=== PATIENT | female | born 1960 | race Caucasian/White ===

== ENCOUNTER → 2021-07-23 01:49 | Outpatient (CLI) | payer OTHER, SELFPAY ==
[2021-07-23 17:56] LABS: SARS-CoV-2 RNA PCR Negative
== END ==
PROVIDERS: PCP Physician Assistant; Visit Provider Internal Medicine
DX: B34.9 Viral infection, unspecified (principal); Z20.822 Contact with and (suspected) exposure to COVID-19
CPT/HCPCS: C9803; U0003; U0005

== ENCOUNTER 2022-04-25 10:04 | Emergency (ER) | payer OTHER, SELFPAY ==
--- NOTE | ~2022-04-25 | XR_ITS ---
EXAMINATION: XR humerus LT DATE: 04/25/2022 10:37 INDICATION: Left upper arm injury and pain. TECHNIQUE: 2 views of left humerus were obtained. COMPARISON: None. FINDINGS: There is a comminuted fracture of proximal left humerus. At the surgical neck, the distal f racture fragment demonstrates impaction and 4 mm lateral displacement. There is mild osteoarthritis o f acromioclavicular joint. The glenohumeral joint is normal. IMPRESSION: 1. Comminuted two-part fracture of proximal left humerus. Reviewed, dictated and finalized at location A.
--- NOTE | 2022-04-25 10:17 | ED.UPPEXIN ---
HPI - Extremity Injury (Upper) General Chief Complaint: Extremity Injury, Upper Stated Complaint: Left Arm Pain due to fall Time Seen by Provider: 04/25/22 10:17 Source: patient, family, RN notes reviewed and old records reviewed Mode of arrival: ambulatory Limitations: no limitations History of Present Illness HPI narrative: 61-year-old female presents to [facility] with complaints of injury to her left arm related to a fall which occurred yesterday at around noon as she was outside of [employer] in [place].Patient reports that she was not dizzy prior to fall and did not hit her head in the fall, patient is not on any blood thinners. Patient has abrasion and some minimal discomfort on palpation to elbow olecranon region with full mobility of left elbow, Patient has swelling to left upper humerus with some bruising noted with acute pain. Patient medicated with Ibuprofen at 0915 this morning and has been applying ice to her left upper arm area. MD complaint: injury to: left and arm (humerus) Onset (ago): day(s) (1) Handedness: right Place: outdoors Severity scale (1-10): 10 Exacerbating factors: movement of extremity Treatments prior to arrival: cold therapy and NSAIDS Related Data Allergies Allergy/AdvReac Type Severity Reaction Status Date / Time codeine Allergy Mild Vomiting Verified 04/25/22 10:26 Review of Systems Review of Systems: CONSTITUTIONAL: Denies fever, chills, or sweats. EYES: Denies visual changes, redness, or discharge. ENT: Denies rhinorrhea, congestion, sore throat, or otalgia. CARDIOVASCULAR: Denies chest pain, palpitations, or edema. RESPIRATORY: Denies cough or dyspnea. GASTROINTESTINAL: Denies abdominal pain, nausea, vomiting, or diarrhea. GENITOURINARY: Denies dysuria or hematuria. SKIN: Denies rash or itching. Abrasions to left elbow with minimal discomfort and full ROM MUSCULOSKELETAL: Denies back pain, positive for pain to left upper humerus below left shoulder from fall yesterday, or myalgia. NEUROLOGIC: Denies headache, numbness, or weakness. PSYCHIATRIC:Positive for history of anxiety or depression. All systems reviewed & are unremarkable except as noted in HPI and below PMFSH Past Medical History Medical History Anxiety and depression Hypothyroidism Stroke Surgical History Surgical History History of hysterectomy Hx of cholecystectomy Family History Family History Father Lung cancer Mother Diabetes mellitus Heart disease Sibling AML (acute myeloblastic leukemia) Social History Social History Smoking status: Never smoker Second hand tobacco smoke exposure: No Alcohol intake: current Alcohol use details: One drink a year Substance use: never Living arrangements: with family Gender identity (if verbalized by the patient): Female Comments At time of signature, agree with nursing past medical, surgical, social and family history. There is no relevant family history pertinent to the presenting complaint Exam Narrative: GENERAL: Well-appearing, well-nourished, and in acute distress related to injury of left upper arm HEAD: Normocephalic, atraumatic. EYES: PERRLA and EOMI. ENT: Nares clear, no rhinorrhea or epistaxis. Mucous membranes moist.TM's normal with good light reflex, throat pink with no lesions or swelling NECK: Supple. no lymphadenopathy CHEST: Clear to auscultation. No respiratory distress.SAO2 99% on room air HEART: Regular rate and rhythm. No murmur heard. Normal peripheral pulses. ABDOMEN: Soft, nontender, nondistended, normal active bowel sounds. EXTREMITIES: Normal range of motion. No edema.Exception noted to pain to left humerus related to injury with some bruising to left upper arm with swelling
[2022-04-25 10:23] VITALS: BP 119/71; PULSE 100; RESP 20; TEMP 37.1; O2SAT 99
--- NOTE | 2022-04-25 10:36 | PC.NURSE ---
Pt in xray at this time.
[2022-04-25] MEDS: ACETAMINOPHEN 500 MG TABLET PO ×2 (12:10→12:11)
== END 2022-04-25 12:20 | disposition short-term general hospital (02) ==
PROVIDERS: Emergency Provider Registered Nurse; PCP Physician Assistant
DX: S42.202A Unspecified fracture of upper end of left humerus, initial encounter for closed fracture (principal); W19.XXXA Unspecified fall, initial encounter; E03.9 Hypothyroidism, unspecified; Z86.73 Personal history of transient ischemic attack (TIA), and cerebral infarction without residual deficits; F41.9 Anxiety disorder, unspecified; F32.A Depression, unspecified
CPT/HCPCS: 73060; 99214; A9270; G0463

== ENCOUNTER 2023-07-30 08:39 | Outpatient (CLI) | payer OTHER, SELFPAY ==
--- NOTE | ~2023-07-30 | US_ITS ---
US abdomen limited INDICATION: Right upper quadrant pain. PROCEDURE: Realtime right upper abdominal ultrasound. COMPARISON: No prior studies for comparison. FINDINGS: The pancreas is normal without focal mass or pancreatic ductal dilation. Liver echotexture is increased, consistent with fatty infiltration. There is nodular liver surface, consistent with ci rrhosis. There is normal directional flow in the portal vein. Gallbladder is surgically absent. Common duct and visualized. IMPRESSION: 1: Cirrhosis of the liver. 2: Status post cholecystectomy. Reviewed, dictated and finalized at location L. DING ENERGY CONSULTANT
== END 2023-07-30 08:40 | disposition home or self-care (01) ==
PROVIDERS: PCP Physician Assistant; Visit Provider Nurse Practitioner Family
DX: R79.89 Other specified abnormal findings of blood chemistry (principal); R89.9 Unspecified abnormal finding in specimens from other organs, systems and tissues; R74.8 Abnormal levels of other serum enzymes; K74.69 Other cirrhosis of liver; Z90.49 Acquired absence of other specified parts of digestive tract
CPT/HCPCS: 76705

== ENCOUNTER 2023-08-17 05:41 | Outpatient (CLI) | payer OTHER, SELFPAY ==
[2023-08-13 12:57] VITALS: BMI 29.4
--- NOTE | 2023-08-13 12:57 | PC.NURSE ---
Pre Radiology instructions Report to the outpatient [facility] on date 08/17/23 at time 0730 for procedure Time: 0930. YOU MAY BE MONITORED AT HOSPITAL FOR UP TO 4 HOURS AFTER YOUR PROCEDURE. A visitor will be allowed to accompany the patient into the hospital. You and your visitor will be asked to self-screen and do not enter if you have any COVID symptoms. A mask is OPTIONAL within the hospital. Patients are to have no food or drink 6 hours prior to procedure time Driving will be restricted after the procedure, you must have a person to drive you home. Labs will be drawn in preop area and once reviewed, you will be taken to radiology area for procedure. When the procedure is completed, you will be taken to outpatient where you will be monitored for several hours. You may have one visitor in this area. Other than holding anti-coagulants, patient may take other medication(s) as scheduled. Prior to your appointment date patients are instructed to hold anti-coagulants after discussing with ordering provider to stop. If unable to discontinue anti-coagulants please notify radiologist. ? No aspirin or warfarin (Coumadin) for 7 days prior to the procedure. ? No clopidogrel (Plavix), ticagrelor (Brilinta), prasugrel (Effient) or dabigatran (Pradaxa) for 5 days prior to the procedure. ? No rivaroxaban (Xarelto), apixaban (Eliquis), dipyridamole (Aggrenox or Persantine) or cilostazol (Pletal) for 2 days prior to the procedure. Medications to discontinue per physician: N/A Date to take last dose: N/A Please leave all valuables, including medications, at home the day of procedure. The hospital will not accept responsibility for valuables. Wear comfortable, loose fitting clothing.? Follow any additional instructions given to you from ordering provider. Telephone instructions given to PT - JASMYN GORDON and asked if any additional questions and then verbalized understanding. Patient advised to call scheduling provider office or registration scheduling [phone] if any additional questions.
[2023-08-17] VITALS (13 sets, daily range): BP systolic 98–111; BP diastolic 49–65; PULSE 74–94; RESP 14–17; TEMP 37.1; O2SAT 96–98
--- NOTE | ~2023-08-17 | US_ITS ---
EXAMINATION: US biopsy liver DATE: 08/17/2023 09:59 INDICATION: Primary biliary cirrhosis versus overlapping autoimmune hepatitis. Positive mitochondrial M2 antibody and positive actin antibody TECHNIQUE: The procedure including the risks and benefits was discussed with the patient. Risks discu ssed included bleeding and infection. The patient understood the risks and agreed to proceed. The sk in overlying the left hepatic lobe was prepped and draped in usual sterile fashion. Anesthetic was a dministered with 1% lidocaine subcutaneously. An 18 gauge core biopsy needle was advanced under cont inuous ultrasound observation to the left hepatic lobe for random biopsy. 3 core biopsy specimens we re obtained. The needle was removed and the entry site was cleaned and dressed. Post procedure ultr asound demonstrated no hemorrhage. FINDINGS: Ultrasound images demonstrate biopsy needles advanced into the left hepatic lobe. IMPRESSION: 1. Successful Ultrasound-guided random liver biopsy. Reviewed, dictated and finalized at location A. ER SERVICES REPRESENTATIVE
[2023-08-17 08:17] LABS: Mean Platelet Volume 9.6 fl (7.4-10.4); Platelet Count Result 197 k/mm3 (150-375)
[2023-08-17 08:49] LABS: INR 1.2; Prothrombin Time 15.5 Seconds (11.1-14.7)
--- NOTE | 2023-08-17 10:01 | SUR.PHASEII ---
Pt. presented to Phase 2 Recovery at 0950. Pt. should be NPO for 2 hours following procedure, then 2 hours clear liquids per premises technician on handoff. Pt. can discharge after 4 hours per MD orders.
[2023-08-17] MEDS: oxyCODONE HCL (*CRX) 5 MG TAB IR PO (11:07)
== END 2023-08-17 14:05 | disposition home or self-care (01) ==
PROVIDERS: PCP Physician Assistant; Referring Provider Nurse Practitioner Family; Visit Provider Radiology Diagnostic Radiology
PROC: BF45ZZZ Ultrasonography of Liver (ICD-10-PCS; CPT 47000; principal; 2023-08-17 09:30)
DX: K74.3 Primary biliary cirrhosis (principal); K74.01 Hepatic fibrosis, early fibrosis; R79.89 Other specified abnormal findings of blood chemistry; R89.9 Unspecified abnormal finding in specimens from other organs, systems and tissues
CPT/HCPCS: 36415; 47000; 76942; 85049; 85610; 88307; 88312; 88313; A9270

== ENCOUNTER 2023-08-21 02:48 | Day surgery (SDC) | payer OTHER, SELFPAY ==
[2023-08-05 13:10] VITALS: BMI 29.7
--- NOTE | 2023-08-19 08:58 | SUR.PREOP ---
Patient called regarding upcoming procedure. Reviewed preop instructions, appointment times, and procedure prep.
--- NOTE | 2023-08-20 09:49 | WPDANESEPPF ---
Anes - Initial Pre Proc Eval Procedure: Operation Date: 08/21/23 08:00 Proposed Procedures p Esophagogastroduodenoscopy & Colonoscopy - Bryan Claudio MD Date/Time: 08/20/23 09:49 Surgeon: Bryan Claudio MD Pre Op Diagnosis: Iron Deficiency Anemia,Diarrhea, Patient Data Age: 63 Gender: F Height: 1.6 m Weight: 76 kg Allergies Allergy/AdvReac Type Severity Reaction Status Date / Time codeine Allergy Mild Vomiting Verified 08/21/23 06:51 Home Medications Medication Instructions Recorded Confirmed Type escitalopram oxalate 20 mg tablet See Rx Instructions .Route 05/26/23 08/21/23 Rx .COMPLEX #90 tabs levothyroxine 50 mcg tablet See Rx Instructions .Route 05/26/23 08/21/23 Rx .COMPLEX #90 tabs ursodiol 500 mg tablet 500 mg PO BID 1 month #60 tabs 07/07/23 08/21/23 Rx ferrous sulfate 325 mg (65 mg 325 mg PO BID 1 month #60 tabs 07/22/23 08/21/23 Rx iron) tablet Patient hx anesthesia problems: none Family hx anesthesia problems: none Results Review: All pre-operative results and documents have been reviewed as part of the pre-operative evaluation. [facility] Past Medical History Medical History (Updated 08/21/23 @ 07:23 by Curtis Velazquez DO) Abnormal laboratory test result Anxiety and depression Cirrhosis recent biopsy done for staging. Never had symptoms other than elevated LFTs. suspected to be autoimmune related. Diarrhea Elevated LFTs Hypothyroidism MALICK (iron deficiency anemia) Primary biliary cirrhosis Stroke Surgical History Surgical History History of hysterectomy Hx of cholecystectomy Family History Family History Father Lung cancer Mother Diabetes mellitus Heart disease Sibling AML (acute myeloblastic leukemia) Social History Social History Smoking status: Never smoker Second hand tobacco smoke exposure: No Alcohol intake: never Alcohol use details: One drink a year Substance use: never Substance use type: does not use Lack of Transportation: No Lack of Food: Never True Current Housing: I Have Housing Concerned About Future Housing: No Difficulty Paying Gas/Electric Bills: No Difficulty Paying for Meds: No Currently Unemployed: No Education: High School Diploma/GED Difficulty w/ Childcare or Family Care: No Living arrangements: with family Gender identity (if verbalized by the patient): Female Spiritual care concerns: No Anes - Eval Final PreProcedure Day of Procedure 08/20/23 09:49 Patient weight: overweight Heart: regular rate and rhythm Lungs: clear to auscultation Airway: Mallampati scale class II Neurological: alert and oriented Last oral intake: >/= 8 hours ASA classification: III Emergent: no Anesthetic plan: proceed Anesthesia type and monitoring: general GIVS and standard monitoring Results Review: All pre-operative results and documents have been reviewed as part of the pre-operative evaluation. Informed Consent: The patient's anesthetic plan and its attendant risks and benefits were discussed with the patient/family/POA. Questions were solicited and answers provided to the satisfaction of the patient/family/POA.
[2023-08-21 06:52] VITALS: BP 113/63; PULSE 96; RESP 20; TEMP 36.3; O2SAT 98; BMI 29.0
[2023-08-21] MEDS: LACTATED RINGERS 1,000 ML 150 ML IV CONT (06:56)
--- NOTE | 2023-08-21 07:37 | PM.HPGS ---
History of Present Illness History of Present Illness Consent: Risks, benefits, and alternatives have been discussed and questions answered. Patient agrees to proceed with procedure. Chief complaint: Iron Deficiency Anemia,Diarrhea, Narrative: Julianna Ireland is a 63 year old female with julio and diarrhea, never had scopes, also diagnosed with PBC recently confirmed by liver biopsy- stage 2 fibrosis. Using ursodiol. Review of Systems Constitutional: Constitutional: Denies headache(s) and Denies weakness Eyes: Eyes: Denies blurry vision ENT: Reports Normal hearing present, Denies headache(s) and Denies neck pain Cardiovascular: Cardiovascular: Denies chest pain and Denies dyspnea Respiratory: Respiratory: Denies dyspnea Gastrointestinal: Gastrointestinal: Reports no additional gastrointestinal complaints Genitourinary: Genitourinary: Denies dysuria Musculoskeletal: Musculoskeletal: Denies neck pain Integumentary/Breasts: Skin/Breast: Denies dry skin Neurologic: Reports Normal hearing present, Denies headache(s) and Denies weakness Psychiatric: Psychiatric: Denies anxiety Endocrine: Endocrine: Denies change in body appearance Hematologic/Lymphatic: Hematologic/Lymphatic: Denies easy bleeding Allergic/Immunologic: Allergic/Immunologic: Denies urticaria PMFSH Past Medical History Medical History (Updated 08/21/23 @ 07:23 by Curtis Velazquez DO) Abnormal laboratory test result Anxiety and depression Cirrhosis recent biopsy done for staging. Never had symptoms other than elevated LFTs. suspected to be autoimmune related. Diarrhea Elevated LFTs Hypothyroidism JULIO (iron deficiency anemia) Primary biliary cirrhosis Stroke Surgical History Surgical History History of hysterectomy Hx of cholecystectomy Family History Family History Father Lung cancer Mother Diabetes mellitus Heart disease Sibling AML (acute myeloblastic leukemia) Social History Social History Smoking status: Never smoker Second hand tobacco smoke exposure: No Alcohol intake: never Alcohol use details: One drink a year Substance use: never Substance use type: does not use Lack of Transportation: No Lack of Food: Never True Current Housing: I Have Housing Concerned About Future Housing: No Difficulty Paying Gas/Electric Bills: No Difficulty Paying for Meds: No Currently Unemployed: No Education: High School Diploma/GED Difficulty w/ Childcare or Family Care: No Living arrangements: with family Gender identity (if verbalized by the patient): Female Spiritual care concerns: No Meds Home Medications and Allergies Home Medications Medication Instructions Recorded Confirmed Type escitalopram oxalate 20 mg tablet See Rx Instructions .Route 05/26/23 08/21/23 Rx .COMPLEX #90 tabs levothyroxine 50 mcg tablet See Rx Instructions .Route 05/26/23 08/21/23 Rx .COMPLEX #90 tabs ursodiol 500 mg tablet 500 mg PO BID 1 month #60 tabs 07/07/23 08/21/23 Rx ferrous sulfate 325 mg (65 mg 325 mg PO BID 1 month #60 tabs 07/22/23 08/21/23 Rx iron) tablet Allergies Allergy/AdvReac Type Severity Reaction Status Date / Time codeine Allergy Mild Vomiting Verified 08/21/23 06:51 Vital Signs Vital Signs - 24 hr 08/21/23 06:52 Temperature 97.3 F L Pulse Rate 96 Respiratory Rate 20 Blood Pressure 113/63 Pulse Oximetry 98 Oxygen Delivery Room Air Exam Const: General: comfortable and no acute distress HENMT: Face/Nose/Sinus: Normal nares present Eyes: General: appearance normal, both eyes and all related structures Neck: Neck: no JVD Resp: Auscultation: clear to auscultation bilaterally Cardio: Rate: regular rate Rhythm: regular rhythm GI: Inspection: non-
--- NOTE | 2023-08-21 08:06 | SUR.OPER ---
EGD START 742, END 47 COLONOSCOPY START 075, END 08
[2023-08-21 08:09] VITALS: BP 102/62; PULSE 94; RESP 24; O2SAT 95
[2023-08-21 08:19] VITALS: BP 93/56; PULSE 90; RESP 24; O2SAT 98
[2023-08-21 08:29] VITALS: BP 105/61; PULSE 87; RESP 26; O2SAT 99
== END 2023-08-21 08:39 | disposition home or self-care (01) ==
PROVIDERS: PCP Physician Assistant; Visit Provider Internal Medicine Gastroenterology
PROC: 0DJ08ZZ Inspection of Upper Intestinal Tract, Via Natural or Artificial Opening Endoscopic (ICD-10-PCS; CPT 43235; principal; 2023-08-21 08:00)
DX: D50.9 Iron deficiency anemia, unspecified (principal); D12.2 Benign neoplasm of ascending colon; D12.3 Benign neoplasm of transverse colon; K29.50 Unspecified chronic gastritis without bleeding; K74.3 Primary biliary cirrhosis; E03.9 Hypothyroidism, unspecified; F41.8 Other specified anxiety disorders; Z86.73 Personal history of transient ischemic attack (TIA), and cerebral infarction without residual deficits
CPT/HCPCS: 45385; 45380; 45381; 43239; 74177; 88305; J2704; J7120; Q9967

== ENCOUNTER 2023-08-21 13:15 | Outpatient (CLI) | payer OTHER, SELFPAY ==
--- NOTE | ~2023-08-21 | CT_ITS ---
CT of the Abdomen and Pelvis: Indication: Other specified disease of intestine Technique: 2.5 mm axial scans were obtained through the abdomen and pelvis following intravenous adm inistration of 100 cc of Omnipaque 350. Dose reduction technique was used on this scan by utilizing a utomated exposure control and iterative reconstruction technique. The dose-length product (DLP) was 7 90.44 mGy-cm. Findings: Scans through the lung bases are unremarkable. Probable esophageal varices noted. Probable mildly nodular contour of the liver. The pancreas, gallbladder, left adrenal gland, and kidn eys are within normal limits. There is a 1.3 cm right adrenal gland nodule, indeterminate. Spleen is enlarged. No evidence of aortic aneurysm. No lymphadenopathy. There is a large apple core type mass lesion of the cecum/ascending colon, highly consistent with col onic adenocarcinoma, measuring up to approximately 9.1 x 7.1 x 10.4 cm in extent (axial image 71 for example, coronal image 59 for example). No elenita bowel obstruction evident despite the size of lesion and apparent marked luminal narrowing in the ascending colon. There are multiple mildly prominent ri ght lower quadrant mesenteric lymph nodes present. Images through the pelvis were performed. Urinary bladder unremarkable. No pelvic mass seen. No ascit es. T12 compression fracture present, moderate in severity. Impression: 9.1 x 7.1 x 10.4 cm mass of the ascending colon/cecum, most consistent with colonic adenocarcinoma. D espite apparent marked luminal narrowing of the ascending colon, there is no evidence of elenita upstre am bowel obstruction. 1.3 cm indeterminate right adrenal gland nodule. Given the aforementioned neoplastic findings, follow -up MR should be strongly considered to assess for adenoma, especially if this will affect clinical m anagement/staging. Shotty right lower quadrant lymph nodes are present, nonspecific. Small local sy metastases are no t excluded. Findings compatible with cirrhosis with associated portal hypertension, splenomegaly, and esophageal varices. Benign-appearing T12 compression fracture. Reviewed, dictated and finalized at [facility]. IDE SALES CONSULTANT Impression: 9.1 x 7.1 x 10.4 cm mass of the ascending colon/cecum, most consistent with col onic adenocarcinoma. Despite apparent marked luminal narrowing of the ascending colon, there is no evidence of elenita upstream bowel obstruction. 1.3 cm indeterminate right adrenal gland nodule. Given the aforementioned neopl astic findings, follow-up MR should be strongly considered to assess for adenom a, especially if this will affect clinical management/staging. Shotty right lower quadrant lymph nodes are present, nonspecific. Small local n odal metastases are not excluded. Findings compatible with cirrhosis with associated portal hypertension, splenom egaly, and esophageal varices. Benign-appearing T12 compression fracture.
[2023-08-21 13:44] LABS: Estimated Glomerular Filt Rate > 60
== END 2023-08-21 13:16 | disposition home or self-care (01) ==
LOC: ANHIMG 13:17
PROVIDERS: PCP Physician Assistant; Visit Provider Internal Medicine Gastroenterology
DX: D64.9 Anemia, unspecified (principal); K63.89 Other specified diseases of intestine; E27.8 Other specified disorders of adrenal gland
CPT/HCPCS: 74177; Q9967

== ENCOUNTER 2023-08-27 09:45 | Outpatient (CLI) | payer OTHER, SELFPAY ==
--- NOTE | 2023-08-27 10:39 | ECG_ITS ---
Measurements Intervals [place] Rate: 89 P: 33 NH: 144 QRS: -13 QRSD: 98 T: -11 QT: 393 QTc: 479 Interpretive Statements SINUS RHYTHM INFERIOR MYOCARDIAL INFARCTION [40+ ms Q WAVE AND/OR ST/T ABNORMALITY IN II/aVF], OF INDETERMINATE AGE WITH POSTERIOR EXTENSION NO PREVIOUS ECG AVAILABLE FOR COMPARISON Electronically Signed On 08-27-2023 15:06:16 FLOOR TRADER by Michela Rodriguez M.D.
[2023-08-27 10:57] LABS: Hematocrit 40.4 % (37.0-47.0); Hemoglobin 12.2 g/dL (12.0-15.0)
[2023-08-27 11:13] LABS: INR 1.2; Prothrombin Time 15.4 Seconds (11.1-14.7)
== END 2023-08-27 09:46 | disposition home or self-care (01) ==
LOC: ANHSURGERY 09:49
PROVIDERS: Anesthesiology; PCP Physician Assistant; Visit Provider Surgery
DX: Z01.818 Encounter for other preprocedural examination (principal); K63.89 Other specified diseases of intestine; D50.9 Iron deficiency anemia, unspecified; K74.60 Unspecified cirrhosis of liver; R93.1 Abnormal findings on diagnostic imaging of heart and coronary circulation
CPT/HCPCS: 36415; 85014; 85018; 85610; 85730; 86850; 86900; 86901; 93005

== ENCOUNTER 2023-08-27 11:05 | Outpatient (CLI) | payer OTHER, SELFPAY ==
[2023-08-27 11:23] LABS: Hemoglobin 12.8 g/dL (12.0-15.0); Mean Corpuscular HGB Conc 31.2 g/dl (32-36); Mean Corpuscular Hemoglobin 26.9 pg (26-34); Mean Corpuscular Volume 86.1 fl (80-100); Mean Platelet Volume 9.7 fl (7.4-10.4); Platelet Count Result 295 k/mm3 (150-375); Red Blood Count 4.76 M/mm3 (4.2-5.4); Red Cell Distribution Width 22.3 % (11.5-14.5); White Blood Count 7.7 K/mm3 (4.5-10.0)
[2023-08-27 11:47] LABS: Alanine Aminotransferase 20 U/L (6-35); Albumin Level 2.9 g/dL (3.5-5.1); Alkaline Phosphatase 204 U/L (38-126); Anion Gap 6 mmol/L (8-16); Aspartate Amino Transferase 27 U/L (14-36); Bilirubin,Total 0.7 mg/dL (0.2-1.3); Blood Urea Nitrogen 17 mg/dL (7-17); Calcium 8.6 mg/dL (8.4-10.2); Carbon Dioxide 22 mmol/L (22-30); Chloride 110 mmol/L (98-107); Estimated Glomerular Filt Rate > 60; Glucose 91 mg/dL (65-110); Potassium 3.5 mmol/L (3.4-5.0); Sodium 138 mmol/L (137-145)
== END 2023-08-27 11:06 | disposition home or self-care (01) ==
LOC: ANHLAB 11:06
PROVIDERS: PCP Physician Assistant; Visit Provider Nurse Practitioner Family
DX: D50.9 Iron deficiency anemia, unspecified (principal); K74.3 Primary biliary cirrhosis; K74.60 Unspecified cirrhosis of liver; R79.89 Other specified abnormal findings of blood chemistry
CPT/HCPCS: 36415; 80053; 85014; 85018; 85027; 85610; 85730; 86850; 86900; 86901; 93005

== ENCOUNTER 2023-09-03 11:44 | Inpatient (IN) | payer OTHER, SELFPAY ==
--- NOTE | 2023-08-27 10:13 | PC.NURSE ---
Report to the Outpatient Waiting Room, entrance under the green pavilion located off [facility], at time __0700 on date _09/03/23 . Planned Procedure Time: __0900 . Time changes happen often and if your time is changed the preop area will call you the afternoon before. - You and your visitor will be asked to self-screen and do not enter if you have any COVID symptoms. - A mask is optional within the hospital at this time. Patients may have clear liquids (water, carbonated beverages, clear teas, apple juice) until 3 hours prior to surgery( 6:00AM ) with a maximum of 20 ounces. - No food from midnight until time of surgery -BOWEL PREP PER DR MENDOSA ENSURE BUNDLE PACK PER DR MENDOSA Take the following medications with a SIP of water the morning of surgery: ___ESCITALOPRAM,LEVOTHYROXINE DO NOT STOP ANY OF YOUR OTHER PRESCRIPTION MEDICATIONS PRIOR TO SURGERY ?EXCEPT THE FOLLOWING Medications to discontinue per physician ____NONE HIBICLENS SHOWER DAY BEFORE SURGERY AND MORNING OF SURGERY Please no make-up, nail togolese, hairspray, perfume, deodorant, or body powder the day of surgery. No jewelry (including any body piercings) or valuables the day of surgery, leave them at home. Please take a shower or bath the night before, or the morning of, surgery with an antibacterial soap. Wear comfortable, loose fitting clothing. Children are encouraged to wear pajamas. - Jewelry must be removed prior to entering the operating room. Rings and piercings that are not removed may be cut off. - The hospital will not accept responsibility for valuables. - Please leave all valuables, including medications, at home the day of surgery. If you are going home after surgery, a licensed dolly driver must drive you home. - NO public transportation without another adult if you receive anesthesia. - We recommend that an adult stay with you for 24 hours following discharge. - We also recommend that you do not drive, make important decision, drink alcoholic beverages, or take any drugs that were not prescribed by your health care provider for at least 24 hours after your discharge time. Follow any additional instructions given to you from your surgeon. If you or anyone in your household have experienced Covid symptoms in the past week, please notify your surgeon or the nurse liaison at the phone number below for possible testing. VERBALAND WRITTEN instructions given to __PATIENT AND SPOUSE ROLF and asked if any additional questions and then verbalized understanding. Patient advised to call surgeon office or pre surgery nurse liaison [phone] if any additional questions.
[2023-08-27 10:37] VITALS: BP 108/70; PULSE 93; RESP 18; TEMP 36.6; O2SAT 97; BMI 30.1
[2023-09-03] VITALS (18 sets, daily range): BP systolic 88–113; BP diastolic 50–68; PULSE 70–110; RESP 10–20; TEMP 35.8–36.8; O2SAT 92–100
--- NOTE | 2023-09-03 07:24 | WPDHPUPDATE1 ---
History and Physical Update Update Date/Time: 09/03/23 07:24 History and Physical has been reviewed, including an updated exam of the patient. There are NO changes in the patient's condition. Risks, benefits, and alternatives have been discussed and questions answered. Patient agrees to proceed with procedure.
--- NOTE | 2023-09-03 07:43 | WPDANESEPPF ---
Anes - Initial Pre Proc Eval Procedure: Operation Date: 09/03/23 09:00 Proposed Procedures p Hand Assisted Laparoscopic Right Colectomy - Annita Bustamante MD Date/Time: 09/03/23 07:43 Surgeon: Annita Bustamante MD Pre Op Diagnosis: right colon mass Patient Data Age: 63 Gender: F Height: 1.57 m Weight: 74.7 kg Last Vital Signs Temp 36.6 C 08/27/23 10:37 Pulse 93 08/27/23 10:37 Resp 18 08/27/23 10:37 BP 108/70 08/27/23 10:37 Pulse Ox 97 08/27/23 10:37 O2 Del Method Room Air 08/27/23 10:37 Allergies Allergy/AdvReac Type Severity Reaction Status Date / Time codeine Allergy Mild Vomiting Verified 08/27/23 09:55 Home Medications Medication Instructions Recorded Confirmed Type escitalopram oxalate 20 mg tablet See Rx Instructions .Route 05/26/23 08/27/23 Rx .COMPLEX #90 tabs levothyroxine 50 mcg tablet See Rx Instructions .Route 05/26/23 08/27/23 Rx .COMPLEX #90 tabs ursodiol 500 mg tablet 500 mg PO BID 1 month #60 tabs 07/07/23 08/27/23 Rx ferrous sulfate 325 mg (65 mg 325 mg PO BID 1 month #60 tabs 07/22/23 08/27/23 Rx iron) tablet omeprazole 20 mg tablet,delayed 20 mg PO .daily #30 tabs 08/21/23 08/27/23 Rx release ondansetron 4 mg disintegrating 4 mg PO Q6H PRN nausea and 08/25/23 08/27/23 Rx tablet vomiting #20 tabs oxycodone 5 mg tablet 5 mg PO Q6H PRN pain #20 tabs 08/25/23 08/27/23 Rx ciprofloxacin HCl 500 mg tablet 500 mg PO .COMPLEX #1 tablet 08/26/23 08/27/23 Rx metronidazole 500 mg tablet 500 mg PO .COMPLEX #3 tabs 08/26/23 08/27/23 Rx Patient hx anesthesia problems: none Family hx anesthesia problems: none Results Review: All pre-operative results and documents have been reviewed as part of the pre-operative evaluation. [facility] Past Medical History Medical History Abnormal laboratory test result Anxiety and depression Cirrhosis recent biopsy done for staging. Never had symptoms other than elevated LFTs. suspected to be autoimmune related. Diarrhea Elevated LFTs Hypothyroidism MALICK (iron deficiency anemia) Mass of colon Right colon mass Primary biliary cirrhosis Stroke Surgical History Surgical History History of hysterectomy Hx of cholecystectomy Family History Family History Father Lung cancer Mother Diabetes mellitus Heart disease Sibling AML (acute myeloblastic leukemia) Social History Social History Smoking status: Never smoker Second hand tobacco smoke exposure: No Alcohol intake: never Alcohol use details: One drink a year Substance use: never Substance use type: does not use Lack of Transportation: No Lack of Food: Never True Current Housing: I Have Housing Concerned About Future Housing: No Difficulty Paying Gas/Electric Bills: No Difficulty Paying for Meds: No Currently Unemployed: No Education: High School Diploma/GED Difficulty w/ Childcare or Family Care: No Living arrangements: with family Gender identity (if verbalized by the patient): Female Spiritual care concerns: No Anes - Eval Final PreProcedure Day of Procedure 09/03/23 07:43 Patient weight: obese Heart: regular rate and rhythm Lungs: clear to auscultation Airway: Mallampati scale class II Neurological: alert and oriented Last oral intake: >/= 8 hours ASA classification: III Emergent: no Anesthetic plan: proceed Anesthesia type and monitoring: general ETT and standard monitoring Results Review: All pre-operative results and documents have been reviewed as part of the pre-operative evaluation. Informed Consent: The patient's anesthetic plan and its attendant risks and benefits were discussed with the patient/family/POA. Questions were solicited and answers prov
[2023-09-03] MEDS: ACETAMINOPHEN 500 MG TABLET 1000 MG PO (08:15)
[2023-09-03] MEDS: KETOROLAC 15 MG/ML VIAL (*BKC) IV PUSH (08:15)
[2023-09-03] MEDS: LACTATED RINGERS 1,000 ML 30 ML IV CONT ×4 (08:15→14:56)
--- NOTE | 2023-09-03 08:22 | SUR.PREOP ---
dr jimenez aware of elevated coags. no orders at this time.
[2023-09-03] MEDS: ceFAZolin 2 GM/D5W 50 ML 2 GM/50 ML BAG IVPB (09:15)
[2023-09-03] MEDS: metroNIDAZOLE 500 MG/ISO 100ML 500 MG/100 ML BAG 100 MG IVPB ×2 (09:30→18:22)
[2023-09-03] MEDS: BUPIVACAINE/EPINEPHRINE 0.5% 30 ML VIAL INFILTRATE (09:55)
--- NOTE | 2023-09-03 11:51 | W.PM.PROC2 ---
Procedure Note - Detailed Date of Procedure 09/03/23 Pre-op Diagnosis right colon mass Post-op Diagnosis Same Procedure Performed hand assisted laparoscopic right hemicolectomy c mobilization of hepatic flexure, lysis of adhesion of approximately 30 minutes Surgeon Annita Bustamante MD Anesthesia General Indications 63-year-old female presenting to the office with nearly obstructing right colon mass. Patient had colonoscopy and biopsy consistent with tubulovillous adenoma with high-grade dysplasia. Findings large obstructing mass with tattooing in the proximal ascending colon Description of Procedure The patient was taken to the operating room and placed in the supine position. After adequate induction of general anesthesia, the patient was prepped and draped normal sterile fashion. A time-out was then done to verify the patient's identity as well as the procedure being performed. I began by making a hand port incision around the umbilicus. This was carried down into the peritoneal cavity and there was noted adhesions to the lower anterior abdominal wall. These adhesions were taken down under visualization with the bovie cautery. Once the abdominal wall was cleared, the hand port was then placed. I then insufflated the abdomen through the hand port. I then placed the camera through the hand port and under direct visualization, I placed 2 5 mm ports in left lower and left mid abdomen. Once this was done, I examined the right abdomen. It was noted that the patient had adhesions of the cecum and distal ileum to the pelvis. These adhesions were taken down both bluntly and with the ligasure under direct visualization. This adhesiolysis took approximately 30 minutes. Once the right colon was mobilized, I began my medial approach. I did this by 1st recognizing and transecting the right colic vessels. This was taken down near the base of the mesentery with the LigaSure. Once this was done, I carried this plane towards the hepatic flexure until I encountered the duodenum which was mobilized posteriorly. I then began taking down the lateral attachments of the terminal ileum and right colon including taking down the white line of Toldt and the hepatic flexure. Once this was done my medial and lateral dissection planes met. I was able to easily manipulate the right colon. The tattoed region and palpable mass was noted in the proximal ascending colon. Further dissection was done to free up the transverse colon, including taking down the omentum. At this point, I extracorporealyzed the right colon and terminal ileum. I then transected the terminal ileum approximately 10 cm proximal to the ileo colic junction with a 75 RUTH stapler. I then localized the tumor in the proximal ascending colon. I measured 10 cm distal to this and transected the transverse colon at this point. Of note, I was able to palpate the middle colic vessels and the transection was done proximal to the vessels. I then performed a [id number] functional end-to-end anastomosis between the ileum and proximal transverse colon with a 75 RUTH stapler followed by a TL 60 stapler. The anastomosis was noted to be tension-free and widely patent. I closed the messenteric defect with a 2.0 silk suture. I then copiously irrigated the abdomen, no other pathology was noted. I then closed the hand port incision with a 0 PDS suture at the fascial level. The skin was closed with 4 O Monocryl subcuticular sutures including the 5 mm ports sites. Dermabond was then placed on all wounds. The patient tolerated the procedure well. She was extubated in the operating room postoperatively and will be transferred to the recovery room in stable condition. Estimated Blood Loss 300 Drains No Packing No Pathology Yes Complications No immediate complications Condition Stable Disposition PACU [facility] Billing Surgery - Charge Forward: Surgery Billing
[2023-09-03] MEDS: fentaNYL CITRATE INJ (*CRX) 100 MCG/2 ML VIAL 25 MCG IV PUSH ×5 (13:55→14:56)
--- NOTE | 2023-09-03 15:26 | ADMGEN ---
This patient, Julianna Ireland, was admitted to [facility] Surg Room 329-01. Patient/family oriented to hospital policies and general routines including ID bracelet, bed and alarms, visiting hours, pain management, procedures, bathroom and other care routines, personal items, smoking policy, room service/diet, and visiting hours. Information on how to activate the Rapid Response Team has been discussed. Patient/Family are encouraged to report perceived risks to care and to ask questions if they do not understand what they are told or what they should do.
[2023-09-03] MEDS: MORPHINE SULFATE (*CRX) 2 MG/ML INJ IV PUSH ×2 (16:03→20:30)
[2023-09-03] MEDS: ONDANSETRON INJ 4 MG/2 ML VIAL IV PUSH (16:03)
[2023-09-03 16:05] LABS: Hematocrit 35.9 % (37.0-47.0); Hemoglobin 11.4 g/dL (12.0-15.0)
[2023-09-03] MEDS: SODIUM CHLORIDE 0.9% IV 500 ML 999 ML IV CONT (16:45)
[2023-09-03] MEDS: ceFAZolin 1 GM/NS 50 ML 1 GM/50 ML BAG IVPB (17:23)
[2023-09-03] MEDS: SODIUM CHLORIDE 0.9% IV 1,000 ML 125 ML IV CONT ×2 (17:26→20:41)
[2023-09-03] MEDS: oxyCODONE HCL (*CRX) 5 MG TAB IR PO ×2 (18:22→22:25)
[2023-09-03] MEDS: FAMOTIDINE 20 MG/2 ML VIAL IV PUSH (20:32)
[2023-09-04 00:46] VITALS: BP 105/66; PULSE 106; RESP 18; TEMP 36.1; O2SAT 92
[2023-09-04] MEDS: ceFAZolin 1 GM/NS 50 ML 1 GM/50 ML BAG IVPB (01:04)
[2023-09-04] MEDS: MORPHINE SULFATE (*CRX) 2 MG/ML INJ IV PUSH (01:05)
[2023-09-04] MEDS: metroNIDAZOLE 500 MG/ISO 100ML 500 MG/100 ML BAG 100 MG IVPB (02:22)
[2023-09-04] MEDS: IBUPROFEN IV 800 MG/200 ML 800 MG/200 ML BAG 400 MG IVPB ×2 (03:08→11:58)
[2023-09-04 04:50] VITALS: BP 90/55; PULSE 106; RESP 20; TEMP 36.3; O2SAT 92
[2023-09-04 06:34] LABS: Basophils Absolute Auto 0.1 K/mm3 (0.0-0.1); Basophils Percent Auto 0.5 % (0.2-1.2); Eosinophils Percent Auto 0.2 % (0-4.4); Hematocrit 32.7 % (37.0-47.0); Hemoglobin 10.5 g/dL (12.0-15.0); Immature Granulocyte Absolute 0.06 K/mm3 (0.00-0.031); Immature Granulocyte Percent A 0.4 % (0-0.5); Lymphocytes Absolute Auto 2.37 K/mm3 (0.9-3.2); Lymphocytes Percent Auto 16.9 % (18.3-44.2); Mean Corpuscular HGB Conc 32.1 g/dl (32-36); Mean Corpuscular Hemoglobin 27.5 pg (26-34); Mean Corpuscular Volume 85.6 fl (80-100); Mean Platelet Volume 9.7 fl (7.4-10.4); Monocytes Absolute Auto 1.1 K/mm3 (0.1-0.6); Monocytes Percent Auto 7.8 % (2.6-8.5); Neutrophils Absolute Auto 10.4 K/mm3 (1.3-6.7); Neutrophils Percent Auto 74.2 % (45.5-73.1); Platelet Count Result 321 k/mm3 (150-375); Red Blood Count 3.82 M/mm3 (4.2-5.4); Red Cell Distribution Width 20.2 % (11.5-14.5)
[2023-09-04] MEDS: SODIUM CHLORIDE 0.9% IV 1,000 ML 125 ML IV CONT ×2 (06:46→20:33)
[2023-09-04 06:51] LABS: Anion Gap 6 mmol/L (8-16); Blood Urea Nitrogen 13 mg/dL (7-17); Calcium 7.7 mg/dL (8.4-10.2); Carbon Dioxide 24 mmol/L (22-30); Chloride 102 mmol/L (98-107); Estimated CRCL calculation 48 ml/min; Estimated Glomerular Filt Rate 56; Glucose 146 mg/dL (65-110); Potassium 2.6 mmol/L (3.4-5.0); Sodium 132 mmol/L (137-145)
[2023-09-04 08:00] VITALS: BP 98/62; PULSE 102; RESP 18; TEMP 36.2; O2SAT 91
[2023-09-04] MEDS: POTASSIUM CHLORIDE 20 MEQ ER TABLET 40 MEQ PO ×2 (10:41→20:35)
[2023-09-04] MEDS: PANTOPRAZOLE 40 MG TABLET PO (11:17)
[2023-09-04] MEDS: ESCITALOPRAM OXALATE 10 MG TABLET 20 MG PO (11:17)
--- NOTE | 2023-09-04 11:37 | PHAR ---
Pharmacy verified home med: *Home Med* UrsodioL 500 mg Tablet Take 1 tablet by mouth twice daily
[2023-09-04] MEDS: ENOXAPARIN 40 MG/0.4 ML SYRINGE SUB-Q (11:58)
[2023-09-04 12:00] VITALS: BP 96/58; PULSE 102; RESP 20; TEMP 36.6; O2SAT 91
--- NOTE | 2023-09-04 14:48 | PM.PNGS ---
Progress Note: A&P Assessment and Plan (1) Mass of colon: Code(s): K63.89 - Other specified diseases of intestine Status: Acute Assessment and Plan: doing well overall, will add Toradol for pain, cont clears for now, await bowel fxn, encourage OOB/IS Subjective Subjective Date/Time Seen: 09/04/23 14:48 Interval history: feels ok, some incisional pain, angelo clears, has been up and ambulating Review of Systems Review of Systems: All systems reviewed & are unremarkable except as noted in HPI and below Exam Const: General: cooperative, comfortable and no acute distress Resp: Auscultation: clear to auscultation bilaterally Cardio: Rate: regular rate Rhythm: regular rhythm GI: Inspection: normal to inspection, distended and incision GI Palp: Yes abdominal tenderness, Yes Soft to palpation and Yes Tenderness to palpation present (GI) Objective Data Vital Signs Vital Signs: Vital Signs - 24 hr 09/03/23 15:05 09/03/23 15:50 09/03/23 15:20 Temperature 36.1 C L 36.1 C L 35.8 C L Pulse Rate 108 H 110 H 108 H Respiratory Rate 14 14 14 Blood Pressure 96/55 L 104/64 98/62 L Pulse Oximetry 94 95 97 Oxygen Delivery 09/03/23 16:50 09/03/23 18:50 09/03/23 20:10 Temperature 36.2 C L 35.8 C L Pulse Rate 103 H 108 H 106 H Respiratory Rate 16 20 Blood Pressure 98/62 L 102/62 100/51 L Pulse Oximetry 97 93 Oxygen Delivery 09/03/23 22:15 09/04/23 00:46 09/04/23 04:50 Temperature 36.1 C L 36.3 C L Pulse Rate 108 H 106 H 106 H Respiratory Rate 18 20 Blood Pressure 113/64 105/66 90/55 L Pulse Oximetry 92 92 Oxygen Delivery 09/04/23 08:00 09/04/23 12:00 09/04/23 08:10 Temperature 36.2 C L 36.6 C Pulse Rate 102 H 102 H Respiratory Rate 18 20 Blood Pressure 98/62 L 96/58 L Pulse Oximetry 91 91 Oxygen Delivery Room Air Intake/Output Intake/Output: Intake & Output 09/01/23 09/02/23 09/03/23 09/04/23 23:59 23:59 23:59 23:59 Intake Total 3222 1993 Output Total 25 Balance 3195 1993 Meds/Results Medications: Active Medications Generic Name Dose Route Start Last Admin Trade Name Freq PRN Reason Stop Dose Admin Alvimopan 12 mg 09/04/23 21:00 Alvimopan 12 Mg Capsule PO 09/11/23 20:59 Q12HR REYMUNDO Enoxaparin Sodium 40 mg 09/04/23 09:00 09/04/23 11:58 Enoxaparin 40 Mg/0.4 Ml Syringe SUB-Q 40 mg DAILY REYMUNDO Administration Escitalopram Oxalate 20 mg 09/04/23 11:10 09/04/23 11:17 Escitalopram Oxalate 10 Mg Tablet PO 20 mg DAILY REYMUNDO Administration Famotidine 20 mg 09/03/23 21:00 09/04/23 11:59 Famotidine 20 Mg/2 Ml Vial IV PUSH Not Given Q12HR REYMUNDO Fentanyl Citrate 25 mcg 09/03/23 07:43 09/03/23 14:56 Fentanyl Citrate Inj (*Crx) 100 Mcg/2 Ml Vial IV PUSH 25 mcg Q2M PRN Administration Pain Ferrous Sulfate 325 mg 09/04/23 17:00 Ferrous Sulfate [address] PO BID REYMUDNO Lactated Ringer's 1,000 mls @ 30 mls/hr 09/03/23 06:35 09/03/23 12:09 Lr - Lactated Ringers Iv IV CONT Infused .Q24H REYMUNDO Infusion Lactated Ringer's 1,000 mls @ 30 mls/hr 09/03/23 07:45 09/03/23 14:56 Lr - Lactated Ringers Iv IV CONT 30 mls/hr .Q24H REYMUNDO Administration Sodium Chloride 1,000 mls @ 125 mls/hr 09/03/23 15:50 09/04/23 06:46 Normal Saline Iv IV CONT 125 mls/hr .Q8H REYMUNDO Administration Ibuprofen 800 mg in 200 mls @ 400 mls/hr 09/04/23 02:40 09/04/23 11:58 Caldolor 800 Mg/200 Ml IVPB 400 mls/hr Q6H REYMUNDO Administration Levothyroxine Sodium 50 mcg 09/05/23 06:30 Levothyroxine Sodium 50 Mcg Tablet PO DAILY@0630 [facility] Morphine Sulfate 2 mg 09/03/23 11:44 09/04/23 01:05 Morphine Sulfate (*Crx) 2 Mg/Ml Inj IV PUSH 2 mg Q2H PRN Administration Pain Rated 4-6 Morphine Sulfate 4 mg 09/03/23 11:44 Morphine Sulfate (*Crx) 4 Mg/Ml Inj IV PUSH Q2H PRN Pain Rated 7-10 Naloxone HCl 0.1 mg 09/03/23 11:44 Naloxone Hcl 0.4 Mg/Ml Vial I
--- NOTE | 2023-09-04 15:00 | PM.IMCN ---
Assessment and Plan Assessment and plan (1) Mass of colon: Code(s): K63.89 - Other specified diseases of intestine Status: Acute Assessment and Plan: s/p hemicolectomy on 09/03 for partial obstructing colonic mass. pathology pending, but c/f colonic adenocarcinoma. no immediate post-op complications. Some difficulty with pain control related to chronic soft blood pressures. Trialing ketorolac. Plan to continue clear fluids which she is tolerating well and awaiting bowel function before patient can be d/c'd. Patient continuing to ambulate and use IS. reported insomnia from achiness/pain and anxiety - escitalopram restarted, one time dose of Xanax ordered HS. (2) MALICK (iron deficiency anemia): Code(s): D50.9 - Iron deficiency anemia, unspecified Status: Acute Assessment and Plan: Iron Supplement (enteric coated) continued BID. trend cbc. current hgb 10.5, 11.4 day prior. baseline in Dec was 9.0-12.8. (3) Hypothyroidism: Code(s): E03.9 - Hypothyroidism, unspecified Status: Acute Assessment and Plan: Continue levothyroxine 50 mcg daily. Last TSH was 4.3 on 07/08/23. (4) Hypokalemia: Code(s): E87.6 - Hypokalemia Status: Acute Assessment and Plan: K currently 2.6, 3.5 prior to surgery. started on K 40 mg PO BID. recheck in AM. (5) Hyperglycemia: Code(s): R73.9 - Hyperglycemia, unspecified Status: Acute Assessment and Plan: BS 146. Currently tolerating clears only, has mainly drank water. Last A1C was 5.6 on 09/06/21. r/o DM. (6) Primary biliary cirrhosis: Code(s): K74.3 - Primary biliary cirrhosis Status: Acute Assessment and Plan: Referred to [facility] hepatology by PCP. Started on Ursodiol 500 mg b.i.d. with improvement in LFTs and patient reports general improvement in her wellbeing. Total bilirubin 0.7, AST 297, ALT 20, alk-phos 204. Continue to monitor. (7) Anxiety and depression: Code(s): F41.9 - Anxiety disorder, unspecified; F32.A - Depression, unspecified Status: Acute Assessment and Plan: escitalopram resumed after surgery. Patient reported anxiety and some discomfort which subsequently led to insomnia. One time dose of Xanax 0.25 mg PO HS placed. Plan Home Meds/Chronic Conditions - held home oxycodone Diet: Clear liquids, dietary supplements GI Prophylaxis: Pantoprazole DVT Prophylaxis: SCDs, Lovenox, up and walking Lines: pIV Code Status: Full Code HPI Date of Consult Consult date: 09/04/23 Requesting Physician: Annita Bustamante MD Primary Care Provider: Alexander Salazar PA-C Consult Narrative Reason for consult: Medical Managment Narrative: Julianna Ireland is a 63 year old female presented here for a?laparoscopic right hemicolectomy with PMH of anxiety/depression, primary biliary cirrhosis stage 2, hypothyroidism, MALICK, and stoke (no residual deficits). Patient presented here for a laparoscopic right hemicolectomy for removal of a nearly obstructing right colonic mass. Biopsy from colonoscopy on 08/21/23 showed tubulovillous adenoma with high-grade dysplasia. Currently awaiting surgical pathology from hemicolectomy done on 09/03/22. Patient reports that she has had intermittent diarrhea for years and attributed the symptoms to IBS due to two other family members having similar symptoms. However in the last 2 years she had began experiencing 6-10 watery stools per day with urgency and accidents requiring patient to wear diapers and had begun to interfere with ability to work. Associated bloating and gas. Had then developed abdominal cramping and multiple bloody bowel movements for 1-2 days and resolved spontaneously. This was reported to her PCP on 07/07/2023. Patient was then scheduled for colonoscopy on 08/20/2023, found to have a single 8 mm polyp in the transverse colon which was completely excised and a partially obstructing a 50 mm fria
[2023-09-04] MEDS: KETOROLAC 30 MG/ML VIAL (*BKC) IM ×2 (15:21→20:35)
[2023-09-04 15:44] VITALS: BMI 30.7
[2023-09-04 16:00] VITALS: BP 98/60; PULSE 97; RESP 28; TEMP 37.1; O2SAT 91
[2023-09-04] MEDS: FERROUS SULFATE 325 MG TABLET DR PO (17:37)
[2023-09-04 20:30] VITALS: BP 100/44; PULSE 101; RESP 18; TEMP 36.7; O2SAT 90
[2023-09-04] MEDS: FAMOTIDINE 20 MG/2 ML VIAL IV PUSH (20:34)
[2023-09-04] MEDS: ALPRAZolam (*CRX) 0.25 MG TABLET PO (20:35)
[2023-09-04] MEDS: ALVIMOPAN 12 MG CAPSULE PO (20:37)
[2023-09-04] MEDS: oxyCODONE HCL (*CRX) 5 MG TAB IR PO (21:02)
[2023-09-05 01:00] VITALS: BP 105/47; PULSE 103; RESP 16; TEMP 35.9; O2SAT 91
[2023-09-05] MEDS: KETOROLAC 30 MG/ML VIAL (*BKC) IM ×2 (02:26→09:15)
[2023-09-05] MEDS: LEVOTHYROXINE SODIUM 50 MCG TABLET PO (05:39)
[2023-09-05] MEDS: SODIUM CHLORIDE 0.9% IV 1,000 ML 125 ML IV CONT (05:39)
[2023-09-05 06:00] VITALS: BP 101/47; PULSE 92; RESP 18; TEMP 36.4; O2SAT 90
[2023-09-05 06:49] LABS: Hematocrit 25.9 % (37.0-47.0); Hemoglobin 8.3 g/dL (12.0-15.0); Mean Corpuscular Hemoglobin 27.8 pg (26-34); Mean Corpuscular Volume 86.6 fl (80-100); Mean Platelet Volume 9.7 fl (7.4-10.4); Platelet Count Result 188 k/mm3 (150-375); Red Blood Count 2.99 M/mm3 (4.2-5.4); Red Cell Distribution Width 20.4 % (11.5-14.5); White Blood Count 9.6 K/mm3 (4.5-10.0)
[2023-09-05 07:14] LABS: Anion Gap 3 mmol/L (8-16); Blood Urea Nitrogen 15 mg/dL (7-17); Calcium 7.1 mg/dL (8.4-10.2); Carbon Dioxide 23 mmol/L (22-30); Chloride 107 mmol/L (98-107); Estimated CRCL calculation 55 ml/min; Estimated Glomerular Filt Rate > 60; Glucose 100 mg/dL (65-110); Potassium 2.8 mmol/L (3.4-5.0); Sodium 133 mmol/L (137-145)
[2023-09-05 07:51] LABS: Hemoglobin A1C 4.6 % (<5.7)
[2023-09-05] MEDS: ALVIMOPAN 12 MG CAPSULE PO (09:12)
[2023-09-05] MEDS: POTASSIUM CHLORIDE 20 MEQ ER TABLET 40 MEQ PO ×3 (09:12→16:48)
[2023-09-05] MEDS: PANTOPRAZOLE 40 MG TABLET PO (09:12)
[2023-09-05] MEDS: FERROUS SULFATE 325 MG TABLET DR PO ×2 (09:12→16:49)
[2023-09-05] MEDS: ESCITALOPRAM OXALATE 10 MG TABLET 20 MG PO (09:12)
[2023-09-05] MEDS: ENOXAPARIN 40 MG/0.4 ML SYRINGE SUB-Q (09:14)
[2023-09-05] MEDS: FAMOTIDINE 20 MG/2 ML VIAL IV PUSH (09:18)
[2023-09-05] MEDS: POTASSIUM CHLORIDE INJ 40 MEQ in SODIUM CHLORIDE 0.9% IV 500 ML 130 MEQ IVPB (09:31)
--- NOTE | 2023-09-05 09:44 | PM.PNGS ---
Progress Note: A&P Assessment and Plan (1) Mass of colon: Code(s): K63.89 - Other specified diseases of intestine Status: Acute Assessment and Plan: Postop day 2 hand access laparoscopic right colectomy. Having bowel movements. Pain is less. Would like to have her Blanco catheter out and her diet advanced. Wounds are healing well. Will advance to low-fiber diet and stop her IV fluids as she has been taking liquids well. Increase ambulation. Pathology is pending (2) Primary biliary cirrhosis: Code(s): K74.3 - Primary biliary cirrhosis Status: Chronic Assessment and Plan: Takes Ursodiol all which is currently on hold but will probably be restarted before discharge. (3) MALICK (iron deficiency anemia): Code(s): D50.9 - Iron deficiency anemia, unspecified Status: Chronic Assessment and Plan: A little more anemic than usual status post laparoscopic right colectomy. Patient is back on her iron supplements and is now advanced to solid food. Resection of tumor will certainly help to alleviate this problem. (4) Hypokalemia: Code(s): E87.6 - Hypokalemia Status: Acute Assessment and Plan: Potassium still low today. Go ahead and increase the 40 mEq from b.i.d. to t.i.d.. Recheck labs again in the morning. Subjective Subjective Date/Time Seen: 09/05/23 09:44 Post Op day: 2 Patient reports: feels better, pain is less, tolerating liquids well, bowel movement and afebrile Exam Const: General: comfortable and no acute distress Orientation/consciousness: patient oriented x3 GI: Inspection: non-distended and incision (Dry and healing) GI Palp: Yes Soft to palpation, Yes Tenderness to palpation present (GI) (Mild, appropriate tenderness), No Guarding due to palpation present (GI), No Hernia present, No Palpable mass present and No Rebound tenderness present Auscultation: normoactive bowel sounds Neuro: General: patient oriented x3 and no focal motor deficits Extrem: General: no calf tenderness and no edema Psych: Affect: normal affect Insight: Good insight present (Psych) Judgement: Good judgement present (Psych) Objective Data Vital Signs Vital Signs: Vital Signs - 24 hr 09/04/23 12:00 09/04/23 16:00 09/04/23 20:30 Temperature 36.6 C 37.1 C 36.7 C Pulse Rate 102 H 97 101 H Respiratory Rate 20 28 H 18 Blood Pressure 96/58 L 98/60 L 100/44 L Pulse Oximetry 91 91 90 09/05/23 01:00 09/05/23 06:00 Temperature 35.9 C L 36.4 C L Pulse Rate 103 H 92 Respiratory Rate 16 18 Blood Pressure 105/47 L 101/47 L Pulse Oximetry 91 90 Intake/Output Intake/Output: Intake & Output 09/02/23 09/03/23 09/04/23 09/05/23 23:59 23:59 23:59 23:59 Intake Total 3222 4084 1572 Output Total 25 175 200 Balance 3197 3906 1372 Meds/Results Medications: Active Medications Generic Name Dose Route Start Last Admin Trade Name Freq PRN Reason Stop Dose Admin Alprazolam 0.25 mg 09/04/23 21:00 09/04/23 20:35 Alprazolam (*Crx) 0.25 Mg Tablet PO 0.25 mg HS REYMUNDO Administration Enoxaparin Sodium 40 mg 09/04/23 09:00 09/05/23 09:14 Enoxaparin 40 Mg/0.4 Ml Syringe SUB-Q 40 mg DAILY REYMUNDO Administration Escitalopram Oxalate 20 mg 09/04/23 11:10 09/05/23 09:12 Escitalopram Oxalate 10 Mg Tablet PO 20 mg DAILY REYMUNDO Administration Ferrous Sulfate 325 mg 09/04/23 17:00 09/05/23 09:12 Ferrous Sulfate [address] PO 325 mg BID REYMUNDO Administration Potassium Chloride 40 meq/ 520 mls @ 130 mls/hr 09/05/23 07:41 09/05/23 09:31 Sodium Chloride IVPB 09/05/23 11:40 130 mls/hr ONCE ONE Administration Ibuprofen 600 mg 09/05/23 09:37 Ibuprofen 600 Mg Tablet PO Q6H PRN Pain Rated 1-3 Levothyroxine Sodium 50 mcg 09/05/23 06:30 09/05/23 05:39 Levothyroxine Sodium 50 Mcg Tablet PO 50 mcg DAILY@0630 REYMUNDO Administration Morphine Sulfate 2 mg 09/03/23 11:44 09/04/23 01:05 Morphine Sulfate
[2023-09-05] MEDS: oxyCODONE HCL (*CRX) 5 MG TAB IR PO ×3 (12:14→20:44)
--- NOTE | 2023-09-05 13:48 | PM.IMPN ---
Progress Note: A&P Assessment and Plan (1) Mass of colon: Code(s): K63.89 - Other specified diseases of intestine Status: Acute Assessment and Plan: s/p hemicolectomy on 09/03 for partial obstructing colonic mass. pathology pending, but c/f colonic adenocarcinoma. no immediate post-op complications. Some difficulty with pain control related to chronic soft blood pressures. Trialing ketorolac. Plan to continue clear fluids which she is tolerating well and awaiting bowel function before patient can be d/c'd. Patient continuing to ambulate and use IS. reported insomnia from achiness/pain and anxiety - escitalopram restarted, one time dose of Xanax ordered HS. (2) Hypokalemia: Code(s): E87.6 - Hypokalemia Status: Acute Assessment and Plan: K currently 2.8 . Patient on 40 b.i.d. potassium daily. Will give 40 mEq IV today. (3) MALICK (iron deficiency anemia): Code(s): D50.9 - Iron deficiency anemia, unspecified Status: Chronic Assessment and Plan: Iron Supplement (enteric coated) continued BID. trend cbc. current hgb 10.5, 11.4 day prior. baseline in Dec was 9.0-12.8. (4) Hypothyroidism: Code(s): E03.9 - Hypothyroidism, unspecified Status: Acute Assessment and Plan: Continue levothyroxine 50 mcg daily. Last TSH was 4.3 on 07/08/23. (5) Hyperglycemia: Code(s): R73.9 - Hyperglycemia, unspecified Status: Acute Assessment and Plan: BS 146. Currently tolerating clears only, has mainly drank water. Last A1C was 5.6 on 09/06/21. r/o DM. (6) Primary biliary cirrhosis: Code(s): K74.3 - Primary biliary cirrhosis Status: Chronic Assessment and Plan: Referred to [facility] hepatology by PCP. Started on Ursodiol 500 mg b.i.d. with improvement in LFTs and patient reports general improvement in her wellbeing. Total bilirubin 0.7, AST 297, ALT 20, alk-phos 204. Continue to monitor. (7) Anxiety and depression: Code(s): F41.9 - Anxiety disorder, unspecified; F32.A - Depression, unspecified Status: Acute Assessment and Plan: Escitalopram resumed after surgery. Patient reported anxiety and some discomfort which subsequently led to insomnia. One time dose of Xanax 0.25 mg PO HS placed. Plan Home Meds/Chronic Conditions - held home oxycodone Diet: Clear liquids, dietary supplements GI Prophylaxis: Pantoprazole DVT Prophylaxis: SCDs, Lovenox, up and walking Lines: pIV Code Status: Full Code Subjective Date/time seen: 09/05/23 13:48 Interval history: patient's potassium was 2.8 today. It was replaced with 40 p.o. and 40 IV. Will recheck this afternoon. patient will likely discharge once potassium is corrected. Patient feeling well today with no complaints at this time. she has had bowel movement Exam Narrative: GENERAL: Comfortable, no acute distress HENMT: moist mucous membranes EYES: EOM intact b/l NECK: no lymphadenopathy RESPIRATORY: clear to auscultation CARDIO: RRR GI: soft, tender to palpation, bowel sounds present SKIN: no rashes EXTREMITIES: no edema, redness or tenderness Objective Data Vital Signs Vital Signs: Vital Signs - 24 hr 09/04/23 16:00 09/04/23 20:30 09/05/23 01:00 Temperature 98.7 F 98.1 F 96.6 F L Pulse Rate 97 101 H 103 H Respiratory Rate 28 H 18 16 Blood Pressure 98/60 L 100/44 L 105/47 L Pulse Oximetry 91 90 91 09/05/23 06:00 Temperature 97.5 F L Pulse Rate 92 Respiratory Rate 18 Blood Pressure 101/47 L Pulse Oximetry 90 Intake/Output Intake/Output: Intake & Output 09/02/23 09/03/23 09/04/23 09/05/23 23:59 23:59 23:59 23:59 Intake Total 3222 4084 1572 Output Total 25 175 200 Balance 3197 0759 1372 Meds/Results Medications: Active Medications Generic Name Dose Route Start Last Admin Trade Name Freq PRN Reason Stop Dose Admin Alprazolam 0.25 mg 09/04/23 21:00 09/04/23 20:35 Alp
[2023-09-05 14:00] VITALS: BP 99/51; PULSE 94; RESP 16; TEMP 36.2; O2SAT 95
[2023-09-05 15:21] LABS: Potassium 2.8 mmol/L (3.4-5.0)
[2023-09-05 20:08] VITALS: BP 102/45; PULSE 97; RESP 16; TEMP 37.2; O2SAT 93
[2023-09-05] MEDS: ALPRAZolam (*CRX) 0.25 MG TABLET PO (20:44)
[2023-09-06 00:13] LABS: Potassium 3.9 mmol/L (3.4-5.0)
[2023-09-06 05:35] VITALS: BP 93/45; PULSE 103; RESP 20; TEMP 37.1; O2SAT 92
[2023-09-06] MEDS: oxyCODONE HCL (*CRX) 5 MG TAB IR PO ×3 (05:35→13:38)
[2023-09-06] MEDS: LEVOTHYROXINE SODIUM 50 MCG TABLET PO (05:35)
[2023-09-06 06:29] LABS: Basophils Percent Auto 0.4 % (0.2-1.2); Eosinophils Absolute Auto 0.5 K/mm3 (0-0.3); Eosinophils Percent Auto 6.3 % (0-4.4); Hematocrit 26.3 % (37.0-47.0); Immature Granulocyte Absolute 0.05 K/mm3 (0.00-0.031); Immature Granulocyte Percent A 0.6 % (0-0.5); Lymphocytes Percent Auto 20.2 % (18.3-44.2); Mean Corpuscular HGB Conc 30.4 g/dl (32-36); Mean Corpuscular Hemoglobin 27.2 pg (26-34); Mean Corpuscular Volume 89.5 fl (80-100); Monocytes Absolute Auto 0.5 K/mm3 (0.1-0.6); Monocytes Percent Auto 5.3 % (2.6-8.5); Neutrophils Absolute Auto 5.7 K/mm3 (1.3-6.7); Neutrophils Percent Auto 67.2 % (45.5-73.1); Platelet Count Result 198 k/mm3 (150-375); Red Blood Count 2.94 M/mm3 (4.2-5.4); Red Cell Distribution Width 20.5 % (11.5-14.5); White Blood Count 8.4 K/mm3 (4.5-10.0)
[2023-09-06 06:42] LABS: Anion Gap 2 mmol/L (8-16); Blood Urea Nitrogen 14 mg/dL (7-17); Calcium 7.1 mg/dL (8.4-10.2); Carbon Dioxide 19 mmol/L (22-30); Chloride 114 mmol/L (98-107); Estimated CRCL calculation 68 ml/min; Estimated Glomerular Filt Rate > 60; Glucose 98 mg/dL (65-110); Magnesium 1.8 mg/dL (1.6-2.3); Potassium 3.9 mmol/L (3.4-5.0); Sodium 135 mmol/L (137-145)
[2023-09-06] MEDS: ESCITALOPRAM OXALATE 10 MG TABLET 20 MG PO (09:21)
[2023-09-06] MEDS: FERROUS SULFATE 325 MG TABLET DR PO ×2 (09:22→16:05)
[2023-09-06] MEDS: POTASSIUM CHLORIDE 20 MEQ ER TABLET 40 MEQ PO ×3 (09:22→16:05)
[2023-09-06] MEDS: ENOXAPARIN 40 MG/0.4 ML SYRINGE SUB-Q (09:22)
[2023-09-06] MEDS: PANTOPRAZOLE 40 MG TABLET PO (09:22)
[2023-09-06 10:14] LABS: Transferrin 163 mg/dL (206-381)
[2023-09-06 10:17] LABS: Iron 14 ug/dL (37-170)
[2023-09-06 10:27] LABS: Percent Iron Saturation 7 % (20-50)
--- NOTE | 2023-09-06 11:15 | PM.DS ---
DS: Admitting Diagnosis Discharge Date 09/06/2023 Admitting Diagnosis ascending colon neoplasm primary biliary cholangitis chronic anemia, iron deficiency DS: Discharge Diagnosis Discharge Diagnosis (1) Mass of colon: Code(s): K63.89 - Other specified diseases of intestine Status: Acute Assessment and Plan: underwent hand access laparoscopic right colectomy on 09/03/2022. Pathology is pending but suspicious for malignancy. (2) Primary biliary cirrhosis: Code(s): K74.3 - Primary biliary cirrhosis Status: Chronic Assessment and Plan: AKA primary biliary cholangitis. CT scan Done preoperatively showed evidence of cirrhosis and portal hypertension with splenomegaly. (3) MALICK (iron deficiency anemia): Code(s): D50.9 - Iron deficiency anemia, unspecified Status: Chronic Assessment and Plan: continue iron supplements (4) Hypokalemia: Code(s): E87.6 - Hypokalemia Status: Acute Assessment and Plan: was significant but did finally correct before discharge. DS: Summary Hospital Course Hospital Course: Patient underwent hand access laparoscopic right colectomy with ileotransverse anastomosis on 09/03/[address] Bustamante. She recovered in the appropriate fashion with increasing ambulation and advancement of diet to regular food. She was comfortable on oral analgesics and stable with ambulation. During her admission she had significant hypokalemia with potassium this low as 2.6. This was aggressively replenished and by the day of discharge, her potassium was 3.9. She is known to have iron deficiency anemia. She will have an outpatient CBC in 3 days as her H&H did drift down after surgery, most likely due to dilutional factors. She will continue her ferrous sulfate 325 mg twice a day and follow up with her primary care provider in 1 week. Status at Discharge Functional status at discharge: independent ambulation Overall status at discharge: patient is progressing back to baseline Time Spent with Patient Time attestation: Total time spent providing and/or coordinating discharge services: Time spent: Less than 30 minutes DS: Data Data Completed and Pending Pending studies at discharge: Pending at discharge 09/03/23 11:13 Surgical [PTH] Routine Labs on day of discharge: Labs from last 24 hours 09/06/23 09/06/23 09/05/23 06:04 00:01 14:24 WBC 8.4 RBC 2.94 L Hgb 8.0 L Hct 26.3 L MCV 89.5 MCH 27.2 MCHC 30.4 L RDW 20.5 H Plt Count 198 MPV 10.0 Immature Gran % (Auto) 0.6 H Neut % (Auto) 67.2 Lymph % (Auto) 20.2 [place] % (Auto) 5.3 Eos % (Auto) 6.3 H Baso % (Auto) 0.4 Lymph # (Auto) 1.70 [place] # (Auto) 0.5 Eos # (Auto) 0.5 H Baso # (Auto) 0.0 Abs Immat Gran (auto) 0.05 H Absolute Neuts (auto) 5.7 Absolute Nucleated RBC 0.0 Nucleated RBC % 0.0 Sodium 135 L Potassium 3.9 3.9 2.8 L* Chloride 114 H Carbon Dioxide 19 L Anion Gap 2 L BUN 14 Creatinine 0.70 Estim Creat Clear Calc 68 Estimated GFR > 60 Glucose 98 Calcium 7.1 L Magnesium 1.8 Iron 14 L TIBC 208 L % Saturation 7 L Transferrin 163 L Snehal Transferrin Receptr Pending Vitamin B12 Pending Folate Pending Discharge Plan Discharge Attending physician on discharge: Annita Bustamante Consulting providers: Varun Mohr Discharging Clinician: Cayden Xavier Anticipated Discharge Date/Time: 09/06/23 11:21 Patient Disposition: Home, Self-Care Activity: may shower and no straining Diet: as tolerated Wound Care Instructions: incision open to air Discharge Instructions: ok to shower with soap and water do not pick at bioglue Ambulate 3-4 x per day and as tolerated. No lifting over 15-20lbs. May bathe or shower. Stairs are OK. May drive a car in 3 days. Patient Instructions: Antibiotic Form
[2023-09-06 11:27] LABS: Folic Acid 4.1 ng/mL (2.76->20); Vitamin B12 > 1000.0 pg/mL (239-931)
--- NOTE | 2023-09-06 12:23 | PM.IMPN ---
Progress Note: A&P Assessment and Plan (1) Mass of colon: Code(s): K63.89 - Other specified diseases of intestine Status: Acute Assessment and Plan: s/p hemicolectomy on 09/03 for partial obstructing colonic mass. pathology pending, but c/f colonic adenocarcinoma. no immediate post-op complications. Some difficulty with pain control related to chronic soft blood pressures. Trialing ketorolac. Plan to continue clear fluids which she is tolerating well and awaiting bowel function before patient can be d/c'd. Patient continuing to ambulate and use IS. reported insomnia from achiness/pain and anxiety - escitalopram restarted, one time dose of Xanax ordered HS. (2) Hypokalemia: Code(s): E87.6 - Hypokalemia Status: Acute Assessment and Plan: K currently 3.9 (3) MALICK (iron deficiency anemia): Code(s): D50.9 - Iron deficiency anemia, unspecified Status: Chronic Assessment and Plan: Iron Supplement (enteric coated) continued BID. trend cbc. current hgb 10.5, 11.4 day prior. baseline in Dec was 9.0-12.8. (4) Hypothyroidism: Code(s): E03.9 - Hypothyroidism, unspecified Status: Acute Assessment and Plan: Continue levothyroxine 50 mcg daily. Last TSH was 4.3 on 07/08/23. (5) Hyperglycemia: Code(s): R73.9 - Hyperglycemia, unspecified Status: Acute Assessment and Plan: BS 146. Currently tolerating clears only, has mainly drank water. Last A1C was 5.6 on 09/06/21. r/o DM. (6) Primary biliary cirrhosis: Code(s): K74.3 - Primary biliary cirrhosis Status: Chronic Assessment and Plan: Referred to [facility] hepatology by PCP. Started on Ursodiol 500 mg b.i.d. with improvement in LFTs and patient reports general improvement in her wellbeing. Total bilirubin 0.7, AST 297, ALT 20, alk-phos 204. Continue to monitor. (7) Anxiety and depression: Code(s): F41.9 - Anxiety disorder, unspecified; F32.A - Depression, unspecified Status: Acute Assessment and Plan: Escitalopram resumed after surgery. Patient reported anxiety and some discomfort which subsequently led to insomnia. One time dose of Xanax 0.25 mg PO HS placed. Subjective Date/time seen: 09/06/23 12:23 Interval history: Patient doing well today. Her pain is managed. Her potassium is within normal range today at 3.9. Patient is okay to be discharged per hospitalist team. Do recommend a daily iron supplement. Exam Narrative: GENERAL: Comfortable, no acute distress HENMT: moist mucous membranes EYES: EOM intact b/l NECK: no lymphadenopathy RESPIRATORY: clear to auscultation CARDIO: RRR GI: soft, tender to palpation, bowel sounds present SKIN: no rashes EXTREMITIES: no edema, redness or tenderness Objective Data Vital Signs Vital Signs: Vital Signs - 24 hr 09/05/23 14:00 09/05/23 20:08 09/06/23 05:35 Temperature 97.1 F L 98.9 F 98.7 F Pulse Rate 94 97 103 H Respiratory Rate 16 16 20 Blood Pressure 99/51 L 102/45 L 93/45 L Pulse Oximetry 95 93 92 Oxygen Delivery 09/06/23 09:25 Temperature Pulse Rate Respiratory Rate Blood Pressure Pulse Oximetry Oxygen Delivery Room Air Intake/Output Intake/Output: Intake & Output 09/03/23 09/04/23 09/05/23 09/06/23 23:59 23:59 23:59 23:59 Intake Total 3222 4284 2572 200 Output Total 25 175 200 Balance 3197 4109 2372 200 Meds/Results Medications: Active Medications Generic Name Dose Route Start Last Admin Trade Name Freq PRN Reason Stop Dose Admin Alprazolam 0.25 mg 09/04/23 21:00 09/05/23 20:44 Alprazolam (*Crx) 0.25 Mg Tablet PO 0.25 mg HS REYMUNDO Administration Enoxaparin Sodium 40 mg 09/04/23 09:00 09/06/23 09:22 Enoxaparin 40 Mg/0.4 Ml Syringe SUB-Q 40 mg DAILY REYMUNDO Administration Escitalopram Oxalate 20 mg 09/04/23 11:10 09/06/23 09:21 Escitalopram Oxalate 10 Mg Tablet PO 20 mg DAILY REYMUNDO
[2023-09-06 14:00] VITALS: BP 99/53; PULSE 103; RESP 14; TEMP 37.2; O2SAT 95
[2023-09-12 18:45] LABS: Soluble Transferrin Receptor 1.21 mg/L (0.76-1.76)
== END 2023-09-06 16:10 | disposition home or self-care (01) | DRG 330 ==
LOC: ANH3MEDSUR 15:04
PROVIDERS: Internal Medicine Critical Care Medicine; Student in an Organized Health Care Education/Training Program; Admitting Provider Surgery; PCP Physician Assistant; Visit Provider Surgery
PROC: 0DTF4ZZ Resection of Right Large Intestine, Percutaneous Endoscopic Approach (ICD-10-PCS; CPT 44204; principal; 2023-09-03 09:00)
DX: C18.2 Malignant neoplasm of ascending colon (principal); I85.10 Secondary esophageal varices without bleeding; K76.6 Portal hypertension; D50.9 Iron deficiency anemia, unspecified; K66.0 Peritoneal adhesions (postprocedural) (postinfection); E03.9 Hypothyroidism, unspecified; E87.6 Hypokalemia; K74.3 Primary biliary cirrhosis; F41.9 Anxiety disorder, unspecified; F32.A Depression, unspecified; R73.9 Hyperglycemia, unspecified; K74.5 Biliary cirrhosis, unspecified
CPT/HCPCS: 36415; 80048; 82607; 82746; 83036; 83540; 83550; 83735; 84132; 84238; 84466; 85014; 85018; 85025; 85027; 88309; A9270; J0690; J1100; J1170; J1650; J1741; J1836; J1885; J2250; J2270; J2405; J2704; J3010; J3480; J7030; J7040; J7120

== ENCOUNTER 2023-10-08 16:02 | Emergency (ER) | payer OTHER, SELFPAY ==
[2023-10-08 16:13] VITALS: PULSE 106; RESP 16; TEMP 36.7; O2SAT 96
--- NOTE | 2023-10-08 18:15 | PC.NURSE ---
Pt to desk. Pt asking Do you know how much longer it is going to be before my goes back to a room. I don't know how much longer she is going to want to wait. This RN apologizes for pt wait time. This RN states Unfortunately we are unable to give accurate wait times as the triage process is a very fluid and changing process. Pt states Okay I will go back and talk with her. Pt back to desk. We are going to go ahead and go home. Please take us off of your list.
== END 2023-10-08 21:23 | disposition left against medical advice (07) ==
PROVIDERS: PCP Physician Assistant
DX: R53.1 Weakness (principal)
CPT/HCPCS: 99199

== ENCOUNTER 2023-10-10 08:56 | Inpatient (IN) | payer OTHER, SELFPAY ==
[2023-10-10] VITALS (17 sets, daily range): BP systolic 108–125; BP diastolic 54–71; PULSE 96–104; RESP 16–32; TEMP 36.7–37.2; O2SAT 92–97; BMI 29.0
--- NOTE | ~2023-10-10 | US_ITS ---
EXAMINATION: US thoracentesis DATE: 10/11/2023 16:08 INDICATION: pleural effusion TECHNIQUE: The procedure and its risks, benefits, and alternatives were discussed with the patient. P otential risks discussed included bleeding, infection, and pneumothorax. The patient understood the r isks and agreed to proceed. The skin was prepped and draped in sterile fashion. 1% lidocaine was used for local anesthesia. Under ultrasound guidance, a 5 Fr catheter with trochar was advanced into the right pleural effusion. Fluid was aspirated. The catheter was removed, and a dressing was applied. Th ere were no immediate complications. FINDINGS: Ultrasound images demonstrate a right pleural effusion and the catheter within the fluid. IMPRESSION: 1. Successful ultrasound-guided thoracentesis yielding 1000 mL of serosanguineous fluid. Reviewed, dictated and finalized at location A. HELPER
--- NOTE | ~2023-10-10 | US_ITS ---
EXAMINATION: US venous doppler [facility] DATE: 10/10/2023 12:31 INDICATION: Bilateral lower limb swelling TECHNIQUE: Lewis scale images without and with compression and Doppler images of the bilateral lower e xtremity veins were obtained. COMPARISON: None FINDINGS: The right common femoral vein, profunda femoral vein, femoral vein, popliteal vein, peroneal trunk, p osterior tibial veins, and greater saphenous vein are patent. The left common femoral vein, profunda femoral vein, femoral vein, popliteal vein, peroneal trunk, po sterior tibial veins, and greater saphenous vein are patent. IMPRESSION: 1. Patent bilateral lower extremity veins. No evidence of deep venous thrombosis. Reviewed, dictated and finalized at location F. D CROP I FARMWORKER IMPRESSION: 1. Patent bilateral lower extremity veins. No evidence of deep venous thrombosi s.
--- NOTE | ~2023-10-10 | CT_ITS ---
EXAMINATION: CTA chest PE abdomen pel DATE: 10/10/2023 11:33 INDICATION: Cough and abdominal pain TECHNIQUE: Computed tomography angiography (CTA) of the chest was performed with 100 mL Omnipaque-350 intravenous contrast timed to evaluate the pulmonary arteries. Subsequent postcontrast images of the abdomen and pelvis are obtained. Coronal maximum intensity projection 3D-reconstructions were create d by the technologist. The dose-length product (DLP) was 1695.05 mGy-cm. Automated exposure control a nd iterative reconstruction technique were employed. COMPARISON: 08/21/2023 FINDINGS: CTA CHEST: The pulmonary arteries are well-opacified. No pulmonary embolism is identified. There is e nlargement of the main and central pulmonary arteries, consistent with pulmonary hypertension. There is a moderate size right pleural effusion. There is near complete atelectasis of the right middle and lower lobes. There is mild dependent atelectasis of the right upper lobe. There are patchy airspace opacities of the left lung. There is no pneumothorax. No pathologically enlarged thoracic lymph nodes are identified. The heart size is normal. There is an old healed fracture of the proximal left humer us. There is a 5 mm calcified nodule of the right thyroid. ABDOMEN/PELVIS CT: There is mild nodularity of the liver surface. Splenomegaly is noted. The pancreas and left adrenal gland are normal. Again noted is a 1.3 cm nodule of the right adrenal gland. There is a moderate volume of abdominal and pelvic ascites. There are changes of interval right hemicolecto my. There is a stable T12 compression fracture. There is an approximately 6.2 x 5.0 cm rim-enhancing fluid collection in the right abdomen. IMPRESSION: 1. Moderate size right pleural effusion with near complete atelectasis of the right middle and lower lobes. 2. Changes of interval right hemicolectomy with 6.2 x 5.0 cm abscess in the right pericolic gutter. 3. Moderate volume of abdominal and pelvic ascites. 4. No pulmonary embolus identified. Reviewed, dictated and finalized at location F. COATER IMPRESSION: 1. Moderate size right pleural effusion with near complete atelectasis of the r ight middle and lower lobes. 2. Changes of interval right hemicolectomy with 6.2 x 5.0 cm abscess in the rig ht pericolic gutter. 3. Moderate volume of abdominal and pelvic ascites. 4. No pulmonary embolus identified.
--- NOTE | ~2023-10-10 | CT_ITS ---
EXAMINATION: CT guide absc cath placement, CT guide absc cath placement DATE: 10/12/2023 11:14 INDICATION: Intra-abdominal abscess. TECHNIQUE: The procedure including the risks, benefits, and alternatives was discussed with the patie nt. Risks discussed included bleeding and infection. The patient understood the risks and benefits an d agreed to proceed. The skin overlying the abdomen was prepped and draped in usual sterile fashion. Anesthetic was administered with 1% lidocaine subcutaneously. An 18 gauge trochar needle was insert ed into the right abdominal abscess with CT guidance. The needle was exchanged over a wire for 6 Fren ch, 8 Hungarian, and 9 Hungarian dilators and then for an 8.5 Hungarian pigtail catheter. An 18-gauge trochar needle was inserted into the right lower quadrant abdominal abscess with CT samantha nce. The needle was exchanged over a wire for 6 Hungarian, 8 Hungarian, and 9 Hungarian dilators and then for an 8.5 Hungarian pigtail catheter. The catheters were stitched to the skin, and sterile dressings were applied. The mA was adjusted acco rding to patient size. Iterative reconstruction technique was employed. The dose-length product was 3 41 mGy-cm. There were no immediate complications. FINDINGS: CT images demonstrate the catheter within the right abdominal abscess. 10 mL fluid was aspi rated for testing. CT images demonstrate the catheter within the right lower quadrant abdominal absce ss. IMPRESSION: 1. Successful CT-guided right abscess drainage. 2. 10 mL luis, opaque fluid was sent for aerobic and anaerobic cultures. 3. Successful CT-guided right lower quadrant abscess drainage. The slow flow of the fluid suggests lo culations. Reviewed, dictated and finalized at location A. T EDUCATION PROFESSIONAL IMPRESSION: 1. Successful CT-guided right abscess drainage. 2. 10 mL luis, opaque fluid was sent for aerobic and anaerobic cultures. 3. Successful CT-guided right lower quadrant abscess drainage. The slow flow of the fluid suggests loculations.
--- NOTE | ~2023-10-10 | XR_ITS ---
EXAMINATION: [id number] DATE: 10/11/2023 10:19 INDICATION: Right pleural effusion. TECHNIQUE: Frontal and lateral views of the chest were obtained. COMPARISON: Chest 2 views 10/10/2023, chest CT 10/10/2023 FINDINGS: There is a moderate-sized right pleural effusion. There are airspace opacities at right khai g base and in left lower lung zone, likely atelectasis. No pneumothorax. The heart size is normal. Th ere is a chronic burst fracture of T12. There is an old healed fracture of proximal left humerus. IMPRESSION: 1. Moderate-sized right pleural effusion with interval improvement. 2. Airspace opacities at right lung base and in left lower lung zone, likely atelectasis. Reviewed, dictated and finalized at location A. R MANUFACTURER'S REPRESENTATIVE IMPRESSION: 1. Moderate-sized right pleural effusion with interval improvement. 2. Airspace opacities at right lung base and in left lower lung zone, likely at electasis.
--- NOTE | ~2023-10-10 | US_ITS ---
CORRECTED REPORT corrected exam description [facility] [place]23 This report was recreated on 10/15/23. Original report was R PRESS OPERATOR EXAMINATION: US thoracentesis w imaging DATE: 10/11/2023 10:41 INDICATION: pleural effusion TECHNIQUE: The procedure and its risks, benefits, and alternatives were discussed with the patient. Potential risks discussed included bleeding, infection, and pneumothorax. The patient understood the risks and agreed to proceed. The skin was prepped and draped in sterile fashion. 1% lidocaine was used for local anesthesia. Under ultrasound guidance, a 5 Fr catheter with trochar was advanced into the right pleural effusion. Fluid was aspirated. The catheter was removed, and a dressing was applied. There were no immediate complications. FINDINGS: Ultrasound images demonstrate a right pleural effusion and the catheter within the fluid. IMPRESSION: 1. Successful ultrasound-guided thoracentesis yielding 1000 mL of serosanguineous fluid. Reviewed, dictated and finalized at location A. R PRESS OPERATOR MTDD IMPRESSION: 1. Successful ultrasound-guided thoracentesis yielding 1000 mL of serosanguine ous fluid.
--- NOTE | ~2023-10-10 | US_ITS ---
EXAMINATION: US thoracentesis DATE: 10/15/2023 16:53 INDICATION: Right pleural effusion TECHNIQUE: The procedure and its risks and benefits were discussed with the patient. Potential risks discussed included bleeding, infection, and pneumothorax. The patient understood the risks and agreed to proceed. The skin was prepped and draped in sterile fashion. 1% lidocaine was used for local anes thesia. Under ultrasound guidance, a 5 Fr catheter with trochar was advanced into the right pleural e ffusion. Fluid was aspirated. The catheter was removed, and a dressing was applied. There were no imm ediate complications. FINDINGS: Ultrasound images demonstrate a small right pleural effusion and the catheter within the fluid. IMPRESSION: 1. Successful ultrasound-guided thoracentesis yielding 900 mL of dark luis-colored fluid. Reviewed, dictated and finalized at location A. ACE KEEPER IMPRESSION: 1. Successful ultrasound-guided thoracentesis yielding 900 mL of dark luis-co lored fluid.
--- NOTE | ~2023-10-10 | XR_ITS ---
EXAMINATION: XR chest 2V DATE: 10/10/2023 09:46 INDICATION: Weakness TECHNIQUE: AP and lateral views of the chest are obtained. COMPARISON: None available FINDINGS: There is a small right pleural effusion. There are associated airspace opacities of the rig ht lung base. There appears to be at least partial atelectasis of the right middle lobe. There is no pneumothorax. The cardiomediastinal silhouette is normal. There is a chronic T12 compression fracture . IMPRESSION: 1. Small right pleural effusion with associated atelectasis versus pneumonia of the right lung base. Probable partial right middle lobe atelectasis. Reviewed, dictated and finalized at location F. LY COURT REGISTRAR
--- NOTE | ~2023-10-10 | XR_ITS ---
EXAMINATION: XR chest 1V DATE: 10/15/2023 16:25 INDICATION: Status post right thoracentesis TECHNIQUE: frontal view of the chest was obtained. COMPARISON: Chest radiograph dated 10/13/2023 FINDINGS: Small lung volumes. Significant decrease in a now tiny right pleural effusion post right thoracentesi s. There are mild opacities in the bilateral lower lung zones which could represent atelectasis or pn eumonia. No pneumothorax. Heart size is normal. Old fracture deformity at the proximal left humerus. IMPRESSION: 1. Tiny residual right pleural effusion post thoracentesis. 2. Mild opacities in bilateral lower lung zones which could represent atelectasis or pneumonia. Reviewed, dictated and finalized at location A. TECHNICIAN IMPRESSION: 1. Tiny residual right pleural effusion post thoracentesis. 2. Mild opacities in bilateral lower lung zones which could represent atelectas is or pneumonia.
--- NOTE | ~2023-10-10 | CT_ITS ---
EXAMINATION: CT abdomen pelvis wo con DATE: 10/14/2023 12:42 INDICATION: Abdominal abscess. TECHNIQUE: Computed tomography (CT) of the abdomen and pelvis was performed without intravenous contr ast. Automated exposure control and iterative reconstruction technique were employed. The dose-length product was 706.96 mGy-cm. COMPARISON: CT abdomen and pelvis 10/10/2023 FINDINGS: There is a large right pleural effusion. There is dependent atelectasis in right lung. Ther e is mild atelectasis in left lung. The heart size is normal. There are coronary artery calcification s. No pericardial effusion. The liver and spleen are normal. The gallbladder is absent. The pancreas, adrenal glands, and right kidney are normal. There is cortical thinning of left kidney. There are ch anges of right hemicolon kidney. There are no pathologically enlarged lymph nodes. In the right parac olic gutter, there is a 3.3 x 2.7 x 6.4 cm abscess with percutaneous drain. There is a moderate volum e of ascites with peritoneal thickening in the inferior left side of the perineum. There is a percuta neous drain in this fluid in expected position. Perirectal varices are noted. The inferior vena cava is duplicated. Body wall edema is noted. There is a chronic compression fracture of T11. There are ch ronic burst fractures of T12 and L1. IMPRESSION: 1. Large right pleural effusion. 2. 3.3 x 2.7 x 6.4 cm abscess in the right paracolic gutter with percutaneous drain with interval imp rovement. 3. Moderate volume of ascites in the inferior and left side of the peritoneum with peritoneal thicken ing and percutaneous drain. Worse than expected drainage suggests loculations. Reviewed, dictated and finalized at location A. WARE PROGRAM MANAGER IMPRESSION: 1. Large right pleural effusion. 2. 3.3 x 2.7 x 6.4 cm abscess in the right paracolic gutter with percutaneous d rain with interval improvement. 3. Moderate volume of ascites in the inferior and left side of the peritoneum w ith peritoneal thickening and percutaneous drain. Worse than expected drainage suggests loculations.
--- NOTE | ~2023-10-10 | XR_ITS ---
Portable chest x-ray Comparison: 10/10/2023 Clinical History: Pleural effusion Findings: Moderate layering right pleural effusion is present. Left lung is essentially clear. Card iomediastinal silhouette is stable. Bones and soft tissues are unremarkable. Impression: Moderate layering right pleural effusion. Reviewed, dictated and finalized at location . TH CARE SOCIAL WORKER Impression: Moderate layering right pleural effusion.
--- NOTE | ~2023-10-10 | XR_ITS ---
EXAMINATION: XR chest 2V DATE: 10/13/2023 13:43 INDICATION: Pleural effusion. TECHNIQUE: Frontal and lateral views of the chest were obtained. COMPARISON: Chest single view 10/12/2023 FINDINGS: There is a moderate-sized right pleural effusion. There are airspace opacities at right khai g base. There is mild atelectasis in left lower lung zone. No pneumothorax. The heart size is normal. IMPRESSION: 1. Moderate-sized right pleural effusion. 2. Airspace opacities are lung base, consistent with atelectasis versus pneumonia. Reviewed, dictated and finalized at location A. EL CHARRER IMPRESSION: 1. Moderate-sized right pleural effusion. 2. Airspace opacities are lung base, consistent with atelectasis versus pneumon ia.
--- NOTE | 2023-10-10 09:13 | ECG_ITS ---
Measurements Intervals [place] Rate: 97 P: 26 VT: 140 QRS: 17 QRSD: 101 T: 6 QT: 309 QTc: 393 Interpretive Statements SINUS RHYTHM NONSPECIFIC T-WAVE ABNORMALITY ABNORMAL ECG COMPARED TO ECG 08/27/2023 10:50:48 T-WAVE ABNORMALITY NOW PRESENT Electronically Signed On 10-10-2023 10:19:01 WOODWORKING CRAFTSMAN by Farhat Thapa M.D.
--- NOTE | 2023-10-10 10:10 | ED.WEAKNESS ---
HPI - Weakness General Chief complaint: Weakness Stated complaint: tired/swollen feet Time Seen by Provider: 10/10/23 09:31 Source: patient Mode of arrival: ambulatory Limitations: no limitations History of Present Illness HPI Narrative: This is a 63-year-old female that presents to the emergency department for generalized weakness. About 1 month ago had a bowel resection for colon cancer. Over the last couple of weeks she has had worsening generalized weakness and lower extremity edema. Also reports a nagging cough. Her has noticed she is breathing heavy. Reports some abdominal discomfort causing her to not want to eat. Denies fever, chest pain, shortness of breath, vomiting. Related Data Home Medications Medication Instructions Recorded Confirmed escitalopram oxalate 20 mg tablet 20 mg PO DAILY 09/03/23 10/10/23 levothyroxine 50 mcg tablet 50 mcg PO 30 09/03/23 10/10/23 Allergies Allergy/AdvReac Type Severity Reaction Status Date / Time codeine AdvReac Mild Vomiting Verified 10/10/23 09:30 Review of Systems Review of Systems: CONSTITUTIONAL: Denies fever CARDIOVASCULAR: Reports edema. Denies chest pain RESPIRATORY: Reports cough. Denies dyspnea. GASTROINTESTINAL: Reports abdominal pain, nausea. Denies vomiting GENITOURINARY: Denies dysuria NEUROLOGIC: Reports generalized weakness. All systems reviewed & are unremarkable except as noted in HPI and below PMFSH Past Medical History Medical History Anxiety and depression Cirrhosis recent biopsy done for staging. Never had symptoms other than elevated LFTs. suspected to be autoimmune related. Diarrhea Elevated LFTs Hypothyroidism MALICK (iron deficiency anemia) Mass of colon Right colon mass Primary biliary cirrhosis Stroke Surgical History Surgical History History of cholecystectomy History of hemicolectomy 09/03/22 History of hysterectomy Family History Family History Father Lung cancer Mother Diabetes mellitus Heart disease Sibling AML (acute myeloblastic leukemia) Social History Social History Smoking status: Never smoker Second hand tobacco smoke exposure: No Alcohol intake: never Alcohol use details: One drink a year Substance use: never Substance use type: does not use Do You Feel Safe in your Home?: Yes Lack of Transportation: No Lack of Food: Never True Current Housing: I Have Housing Concerned About Future Housing: No Difficulty Paying Gas/Electric Bills: No Difficulty Paying for Meds: No Currently Unemployed: No Education: Decline to Answer Difficulty w/ Childcare or Family Care: No Living arrangements: with family Gender identity (if verbalized by the patient): Female Spiritual care concerns: No Exam Narrative: GENERAL: Well-appearing, well-nourished, and in no acute distress. HEAD: Normocephalic, atraumatic. EYES: EOMI. ENT: Nares clear, no rhinorrhea or epistaxis. Mucous membranes moist. CHEST: Clear to auscultation. No respiratory distress. No wheezes rales or rhonchi HEART: Regular rate and rhythm. No murmur heard. Normal peripheral pulses. ABDOMEN: Soft, nontender, nondistended, normal active bowel sounds. Incisions on the abdomen without erythema or abnormal drainage EXTREMITIES: Normal range of motion. 2+ pitting edema to the bilateral lower extremities. Normal DP pulses SKIN: Warm, dry, no rash. NEURO: No focal deficits. Alert and oriented x3. PSYCH: Normal mood and affect Course Course Emergency Course: Patient and family updated on workup and recommendation for admission Consultations Consultation #1: Spoke with hospitalist about patient and workup who accepts admission Date: 10/10/23 Consultation
[2023-10-10 10:21] LABS: Basophils Percent Auto 0.4 % (0.2-1.2); Eosinophils Absolute Auto 0.1 K/mm3 (0-0.3); Eosinophils Percent Auto 1.3 % (0-4.4); Hematocrit 28.8 % (37.0-47.0); Hemoglobin 8.7 g/dL (12.0-15.0); Immature Granulocyte Absolute 0.05 K/mm3 (0.00-0.031); Immature Granulocyte Percent A 0.5 % (0-0.5); Lymphocytes Absolute Auto 0.99 K/mm3 (0.9-3.2); Lymphocytes Percent Auto 10.5 % (18.3-44.2); Mean Corpuscular HGB Conc 30.2 g/dl (32-36); Mean Corpuscular Hemoglobin 26.9 pg (26-34); Mean Corpuscular Volume 89.2 fl (80-100); Mean Platelet Volume 8.3 fl (7.4-10.4); Monocytes Absolute Auto 0.6 K/mm3 (0.1-0.6); Monocytes Percent Auto 6.1 % (2.6-8.5); Neutrophils Absolute Auto 7.7 K/mm3 (1.3-6.7); Neutrophils Percent Auto 81.2 % (45.5-73.1); Platelet Count Result 393 k/mm3 (150-375); Red Blood Count 3.23 M/mm3 (4.2-5.4); Red Cell Distribution Width 17.4 % (11.5-14.5); White Blood Count 9.4 K/mm3 (4.5-10.0)
[2023-10-10 10:33] LABS: Appearance Urine Cloudy (Clear); Bacteria Urine 4+ /hpf; Bilirubin Urine 1+ (Negative); Blood Urine Negative (Negative); Color Urine Dark Yellow (Yellow); Glucose Urine UA Negative (Negative); Ketones Urine 2+ mg/dL (Negative); Leukocyte Esterase Ur 2+ LEU/UL (Negative); Nitrate Urine Positive (Negative); Non Pathogenic Casts 0-2; Protein Urine 1+ mg/dL (Negative); RBC Urine 0-2 /hpf (0-2); Specific Grav Ur 1.022 (1.001-1.035); Squamous Epithelial Cell Urine None seen /hpf (Few); WBC Urine >100 /hpf
[2023-10-10 10:37] LABS: Potassium 2.5 mmol/L (3.4-5.0)
[2023-10-10 10:38] LABS: Alanine Aminotransferase 11 U/L (6-35); Albumin Level 2.2 g/dL (3.5-5.1); Alkaline Phosphatase 167 U/L (38-126); Anion Gap 2 mmol/L (8-16); Aspartate Amino Transferase 19 U/L (14-36); Bilirubin,Total 1.5 mg/dL (0.2-1.3); Blood Urea Nitrogen 11 mg/dL (7-17); Calcium 7.4 mg/dL (8.4-10.2); Carbon Dioxide 30 mmol/L (22-30); Chloride 101 mmol/L (98-107); Estimated CRCL calculation 90 ml/min; Estimated Glomerular Filt Rate > 60; Glucose 106 mg/dL (65-110); Sodium 133 mmol/L (137-145)
[2023-10-10 10:41] LABS: NT Pro B Type Natriuretic Pept 304 pg/mL (19.9-100)
[2023-10-10 10:49] LABS: Lipase 124 U/L (23-300); Magnesium 2.1 mg/dL (1.6-2.3)
[2023-10-10 10:56] LABS: Lactic Acid Reflex 1.3 mmol/L (0.7-2.0)
[2023-10-10 11:01] LABS: Add Urine Microscopic? YES
[2023-10-10] MEDS: FLUCONAZOLE 150 MG TABLET PO (11:07)
[2023-10-10 11:10] LABS: INR 1.6; Prothrombin Time 19.7 Seconds (11.1-14.7)
[2023-10-10 11:11] LABS: Partial Thromboplastin Time 38.6 SECONDS (22.3-36.8)
[2023-10-10] MEDS: POTASSIUM CHLORIDE INJ 40 MEQ in SODIUM CHLORIDE 0.9% IV 500 ML 130 MEQ IVPB (11:12)
[2023-10-10 11:22] LABS: Influenza A QL RT-PCR Negative (Negative); Influenza B QL RT-PCR Negative (Negative); RSV RNA, RT-PCR Negative (Negative); SARS-CoV-2 RNA PCR Negative (Negative)
[2023-10-10] MEDS: POTASSIUM CHLORIDE 20 MEQ ER TABLET 40 MEQ PO ×2 (13:26→18:30)
[2023-10-10] MEDS: metroNIDAZOLE 500 MG/ISO 100ML 500 MG/100 ML BAG 100 MG IVPB (13:26)
--- NOTE | 2023-10-10 15:01 | PM.IMHP ---
H&P: HPI History of Present Illness Date/Time: 10/10/23 15:30 Chief Complaint: Weakness. Narrative: This is a very pleasant 63-year-old female with recent diagnosis of colonic adenocarcinoma, primary biliary cholangitis, cirrhosis, hypothyroidism, iron deficiency anemia, and history of stroke with no residual deficits who presented to the emergency department via private vehicle from home for evaluation of weakness. The patient provides the following history. She was seen by GI in July 2023 for evaluation of elevated LFTs and positive mitochondrial antibodies which were reportedly noted on labs in August 2021. She was referred to hepatology at [facility] at that time but reportedly nobody ever called her to make an appointment and it sounds as though she was lost to follow-up until last fall. During that appointment she reported having chronic diarrhea with frequent urgency and accidents as well. Abdominal ultrasound at that time showed cirrhosis of the liver and a liver biopsy done several weeks later was consistent with primary biliary cholangitis, Scheuer stage [address] scan showed a 9.1 x 7.1 x 10.4 mass of the ascending colon/cecum, indeterminate right adrenal nodule, and findings compatible with cirrhosis to include portal hypertension, splenomegaly, and esophageal varices. Subsequent EGD showed findings of gastritis with no varices being seen. Several colon polyps were removed during colonoscopy including biopsies taken from a partially obstructing, infiltrative mass in the ascending colon which was tattooed. Right hemicolectomy was performed on 09/03/[address] Bustamante with pathology consistent with adenocarcinoma; 40 lymph nodes were negative for metastatic disease and surgical margins were negative. She has seen her primary care provider and surgeon in follow-up since that time and reports tolerating a normal diet though she continues to have multiple soft stools a day. She reported minimal abdominal discomfort managed with p.r.n. medications. The last several weeks she has not had much of an appetite and she has not been feeling well with generalized malaise, weakness, mild dysuria, and swelling in her legs. has noticed that she is breathing heavy with activity though the patient did not complain of that. She denies fever, sinus congestion, sore throat, cough, chest pain, pleuritic pain, palpitations, significant epigastric or abdominal pain, vomiting, diarrhea, melena, hematochezia. In the ED: She was afebrile on arrival with stable blood pressures. Labs were significant for a WBC count of 9.4, hemoglobin 8.7, PTT 90.7, INR 1.6, PTT 30.6, sodium 133, potassium 2.5, creatinine 0.50, lactic acid 1.3, total bilirubin 1.5, alkaline phosphatase 167, proBNP 304, total protein 6.0, albumin 2.2. Urine was positive for 1+ protein, 2+ ketones, 2+ leukocyte esterase, nitrates, greater than 100 wbc's, and 4+ bacteria. She tested negative for influenza, RSV, and COVID. CT of the chest, abdomen, and pelvis showed a moderate sized right pleural effusion with near complete atelectasis of the right middle and lower lobes, interval changes of right hemicolectomy with 6.2 x 5.0 cm abscess in the right pericolic gutter, and moderate volume of abdominal and pelvic ascites. Lower extremity venous Doppler ultrasounds were negative for DVT. She was given IV and p.o. potassium chloride, 1 g ceftriaxone, and 500 mg metronidazole and she is being admitted in this setting for further treatment and evaluation. Review of Systems Review of Systems: Twelve systems were reviewed and are negative except for as per HPI. [facility] Past Medical History Medical History Anxiety and depression Cirrhosis of liver with ascites Colon adenocarcinoma Hypothyroidism Iron deficiency anemia Primary biliary cholangitis Scheuer stage 2 fibrosis on liver biopsy 07/2023. Stroke No residual deficits. Surgical History Surgical
--- NOTE | 2023-10-10 15:04 | ADMGEN ---
This patient, Julianna Ireland, was admitted to IMU Room 210-01. Patient/family oriented to hospital policies and general routines including ID bracelet, bed and alarms, visiting hours, pain management, procedures, bathroom and other care routines, personal items, smoking policy, room service/diet, and visiting hours. Information on how to activate the Rapid Response Team has been discussed. Patient/Family are encouraged to report perceived risks to care and to ask questions if they do not understand what they are told or what they should do.
[2023-10-10 16:41] LABS: Anion Gap 6 mmol/L (8-16); Blood Urea Nitrogen 9 mg/dL (7-17); Calcium 7.3 mg/dL (8.4-10.2); Carbon Dioxide 25 mmol/L (22-30); Chloride 103 mmol/L (98-107); Estimated CRCL calculation 110 ml/min; Estimated Glomerular Filt Rate > 60; Glucose 84 mg/dL (65-110); Potassium 3.2 mmol/L (3.4-5.0); Sodium 134 mmol/L (137-145)
[2023-10-10] MEDS: PIPERACILLN/TAZ 3.375GM/NS50ML 3.375 GM/50 ML BAG IVPB ×2 (18:30→23:40)
[2023-10-10] MEDS: FERROUS SULFATE 325 MG TABLET DR PO (18:30)
[2023-10-11] VITALS (21 sets, daily range): BP systolic 99–122; BP diastolic 51–62; PULSE 94–105; RESP 2–32; TEMP 36.5–37.1; O2SAT 90–97
[2023-10-11 05:16] LABS: Hematocrit 27.6 % (37.0-47.0); Hemoglobin 8.4 g/dL (12.0-15.0); Mean Corpuscular HGB Conc 30.4 g/dl (32-36); Mean Corpuscular Hemoglobin 27.1 pg (26-34); Mean Platelet Volume 8.3 fl (7.4-10.4); Platelet Count Result 409 k/mm3 (150-375); Red Cell Distribution Width 17.7 % (11.5-14.5); White Blood Count 9.2 K/mm3 (4.5-10.0)
[2023-10-11 05:27] LABS: INR 1.6; Prothrombin Time 20.4 Seconds (11.1-14.7)
[2023-10-11 05:32] LABS: Alanine Aminotransferase 11 U/L (6-35); Albumin Level 2.1 g/dL (3.5-5.1); Alkaline Phosphatase 154 U/L (38-126); Anion Gap 2 mmol/L (8-16); Aspartate Amino Transferase 19 U/L (14-36); Bilirubin,Total 1.2 mg/dL (0.2-1.3); Blood Urea Nitrogen 9 mg/dL (7-17); Calcium 7.5 mg/dL (8.4-10.2); Carbon Dioxide 28 mmol/L (22-30); Chloride 105 mmol/L (98-107); Estimated CRCL calculation 92 ml/min; Estimated Glomerular Filt Rate > 60; Glucose 99 mg/dL (65-110); Magnesium 2.1 mg/dL (1.6-2.3); Potassium 3.3 mmol/L (3.4-5.0); Sodium 135 mmol/L (137-145)
[2023-10-11] MEDS: PIPERACILLN/TAZ 3.375GM/NS50ML 3.375 GM/50 ML BAG IVPB ×4 (05:54→23:57)
--- NOTE | 2023-10-11 11:31 | PM.CNGS ---
Assessment and Plan Assessment and plan (1) Abnormal CT of the abdomen: Code(s): R93.5 - Abnormal findings on diagnostic imaging of other abdominal regions, including retroperitoneum Status: Acute (2) Colon adenocarcinoma: Code(s): C18.9 - Malignant neoplasm of colon, unspecified Status: Acute Assessment and Plan: I have reviewed the CT and discussed the findings with the patient. She has a fluid collection along the right pericolic gutter close to the ileocolic anastomosis. She does not present with any definite signs of infection, therefore this could be a sterile fluid collection related to the prior surgery. There are small chances that this could be a walled off abscess as well. Will arrange for CT or ultrasound-guided drainage to be done by Interventional Radiology. Continue medical treatment per the hospitalist. She may need more aggressive fluid management with low-sodium diet and diuretics to help prevent significant ascites or edema. (3) Cirrhosis of liver with ascites: Code(s): K74.60 - Unspecified cirrhosis of liver; R18.8 - Other ascites Status: Acute (4) Chronic anemia: Code(s): D64.9 - Anemia, unspecified Status: Acute (5) Pleural effusion on right: Code(s): J90 - Pleural effusion, not elsewhere classified Status: Acute History of Present Illness Consult details Consult date: 10/11/23 Reason for consult: other (possible postop abscess) Requesting physician: Alicia Major PA-C Narrative: This is a 63-year-old woman who I am asked to see for a possible postoperative abscess. She had undergone hand assisted laparoscopic right hemicolectomy on 09/03/[address] Bustamante. She has a history of cirrhosis and ascites. She was discharged uneventfully after surgery and was tolerating a diet and bowels were moving. She has been feeling very weak at home and has not had much appetite. She denies any fevers. Bowels have been moving normally. She presented to the emergency department yesterday feeling very weak and experiencing some lower extremity swelling. CT showed evidence of a fluid collection in the right pericolic gutter suggesting possible abscess. She was also noted to have ascites and right pleural effusion. She has been admitted for further treatment. Currently she denies any abdominal pain. Review of Systems Review of Systems: All systems reviewed & are unremarkable except as noted in HPI and below Eyes: Eyes: Denies change in vision ENT: Denies hearing loss, Denies neck pain and Denies sore throat Cardiovascular: Cardiovascular: Denies chest pain and Denies dyspnea Respiratory: Respiratory: Denies cough, Denies dyspnea and Denies wheezing Gastrointestinal: Gastrointestinal: Reports as per HPI Genitourinary: Genitourinary: Denies hematuria and Denies dysuria Musculoskeletal: Musculoskeletal: Denies arthralgias, Denies joint swelling and Denies neck pain Allergic/Immunologic: Allergic/Immunologic: Denies wheezing [facility] Past Medical History Medical History Anxiety and depression Cirrhosis of liver with ascites Colon adenocarcinoma Hypothyroidism Iron deficiency anemia Primary biliary cholangitis Scheuer stage 2 fibrosis on liver biopsy 07/2023. Stroke No residual deficits. Surgical History Surgical History History of cholecystectomy History of hysterectomy History of right hemicolectomy (09/03/23) Family History Family History Father Lung cancer Mother Diabetes mellitus Heart disease Hypertension Sibling AML (acute myeloblastic leukemia) Social History Social History Social History: Surrogate medical decision maker: Chester Ireland, spouse. Code status:
[2023-10-11] MEDS: FERROUS SULFATE 325 MG TABLET DR PO ×2 (11:46→17:15)
[2023-10-11] MEDS: PANTOPRAZOLE 40 MG TABLET PO (11:47)
[2023-10-11] MEDS: ESCITALOPRAM OXALATE 10 MG TABLET 20 MG PO (11:47)
[2023-10-11 11:49] LABS: pH Pleural Fluid > 0.000 (7.210-7.500)
[2023-10-11 11:58] LABS: Appearance Pleural Fluid Cloudy (Clear); Color Pleural Fluid Red (Colorless); Nucleated Cell Pleural Fluid 2033 /uL (0-1000); Pleural fluid source Pleural fluid; RBC Pleural Fluid 21000 /uL (0-0)
[2023-10-11] MEDS: PHYTONADIONE 5 MG TABLET 10 MG PO (12:03)
[2023-10-11 12:10] LABS: Lymphocytes Pleural Fluid 55 %; Neutrophils Pleural Fluid 17 % (0-25)
[2023-10-11 12:12] LABS: Monocytes Pleural Fluid 12 %
[2023-10-11 12:15] LABS: Macrophages Pleural Fluid 7 %; Mesothelial Cells Pleural Flui 4 %
[2023-10-11 12:16] LABS: Other Cells Pleural Fluid 5 %
--- NOTE | 2023-10-11 14:09 | PC.NURSE ---
[id number]- pt in US dept for procedure thoracentesis- returned to room- bandaid intact R posterior med back- pt NPO for 1 hr post procedure pt / acknowledged understanding- no c/o pain- spo2 94% on 2l/nc-
--- NOTE | 2023-10-11 14:37 | PM.IMPN ---
Progress Note: A&P Assessment and Plan (1) Abnormal CT of the abdomen: Code(s): R93.5 - Abnormal findings on diagnostic imaging of other abdominal regions, including retroperitoneum Status: Acute (2) Cirrhosis of liver with ascites: Code(s): K74.60 - Unspecified cirrhosis of liver; R18.8 - Other ascites Status: Acute (3) Urinary tract infection: Code(s): N39.0 - Urinary tract infection, site not specified Status: Acute (4) Pleural effusion on right: Code(s): J90 - Pleural effusion, not elsewhere classified Status: Acute (5) Colon adenocarcinoma: Code(s): C18.9 - Malignant neoplasm of colon, unspecified Status: Acute (6) Iron deficiency anemia: Code(s): D50.9 - Iron deficiency anemia, unspecified Status: Acute (7) Primary biliary cholangitis: Code(s): K74.3 - Primary biliary cirrhosis Status: Acute (8) Acute hypokalemia: Code(s): E87.6 - Hypokalemia Status: Acute Plan This is a very pleasant 63-year-old female with recent diagnosis of colonic adenocarcinoma, primary biliary cholangitis, cirrhosis, hypothyroidism, iron deficiency anemia, and history of stroke with no residual deficits who presented to the emergency department via private vehicle from home for evaluation of weakness. The patient provides the following history. She was seen by GI in July 2023 for evaluation of elevated LFTs and positive mitochondrial antibodies which were reportedly noted on labs in August 2021. She was referred to hepatology at [facility] at that time but reportedly nobody ever called her to make an appointment and it sounds as though she was lost to follow-up until last fall. During that appointment she reported having chronic diarrhea with frequent urgency and accidents as well. Abdominal ultrasound at that time showed cirrhosis of the liver and a liver biopsy done several weeks later was consistent with primary biliary cholangitis, Scheuer stage [address] scan showed a 9.1 x 7.1 x 10.4 mass of the ascending colon/cecum, indeterminate right adrenal nodule, and findings compatible with cirrhosis to include portal hypertension, splenomegaly, and esophageal varices. Subsequent EGD showed findings of gastritis with no varices being seen. Several colon polyps were removed during colonoscopy including biopsies taken from a partially obstructing, infiltrative mass in the ascending colon which was tattooed. Right hemicolectomy was performed on 09/03/[address] Bustamante with pathology consistent with adenocarcinoma; 40 lymph nodes were negative for metastatic disease and surgical margins were negative. She has seen her primary care provider and surgeon in follow-up since that time and reports tolerating a normal diet though she continues to have multiple soft stools a day. She reported minimal abdominal discomfort managed with p.r.n. medications. The last several weeks she has not had much of an appetite and she has not been feeling well with generalized malaise, weakness, mild dysuria, and swelling in her legs. has noticed that she is breathing heavy with activity though the patient did not complain of that. She denies fever, sinus congestion, sore throat, cough, chest pain, pleuritic pain, palpitations, significant epigastric or abdominal pain, vomiting, diarrhea, melena, hematochezia. Admitted on 10/11/2023 #Weakness -multifactorial. Slightly Improved after thoracentesis. PT OT consulted. Dietary supplements ordered. #Acute hypoxic respiratory failure -Likely due to pleural effusion right side. Continue to wean O2 status post thoracentesis -pending surface echo tomorrow. #Pleural effusion, right -status post thoracentesis 1 L serosanguineous fluid removal on 10/11/2023 -pending pleural fluid studies -repeat chest x-ray in a.m. #Intra-abdominal fluid collection -unclear if it is a fluid collection or walled-off abscess. For now continue ceftriaxone and metroni
[2023-10-11] MEDS: ALBUMIN HUMAN 25% 25 GM/100 ML 200 ML IVPB (15:33)
[2023-10-11] MEDS: POTASSIUM CHLORIDE 20 MEQ ER TABLET PO (15:33)
--- NOTE | 2023-10-11 16:12 | PC.NURSE ---
Nurse requests I administer albumin and potassium. ICU charge did override in the Pyxis as I only removed one bottle of albumin and needed two.
--- NOTE | 2023-10-11 20:56 | PHAR ---
PT'S HOME MED URSODIOL 500 MG TABS VERIFIED BY PHARMACY
[2023-10-12] VITALS (20 sets, daily range): BP systolic 96–114; BP diastolic 46–68; PULSE 83–108; RESP 18–24; TEMP 36.2–36.8; O2SAT 93–96; BMI 29.5
[2023-10-12 05:13] LABS: Basophils Percent Auto 0.5 % (0.2-1.2); Eosinophils Absolute Auto 0.4 K/mm3 (0-0.3); Eosinophils Percent Auto 4.6 % (0-4.4); Hematocrit 26.4 % (37.0-47.0); Hemoglobin 7.6 g/dL (12.0-15.0); Immature Granulocyte Absolute 0.04 K/mm3 (0.00-0.031); Immature Granulocyte Percent A 0.5 % (0-0.5); Lymphocytes Absolute Auto 1.43 K/mm3 (0.9-3.2); Lymphocytes Percent Auto 18.2 % (18.3-44.2); Mean Corpuscular HGB Conc 28.8 g/dl (32-36); Mean Corpuscular Hemoglobin 26.7 pg (26-34); Mean Corpuscular Volume 92.6 fl (80-100); Mean Platelet Volume 8.8 fl (7.4-10.4); Monocytes Absolute Auto 0.6 K/mm3 (0.1-0.6); Monocytes Percent Auto 7.5 % (2.6-8.5); Neutrophils Absolute Auto 5.4 K/mm3 (1.3-6.7); Neutrophils Percent Auto 68.7 % (45.5-73.1); Platelet Count Result 335 k/mm3 (150-375); Red Blood Count 2.85 M/mm3 (4.2-5.4); Red Cell Distribution Width 17.5 % (11.5-14.5); White Blood Count 7.9 K/mm3 (4.5-10.0)
[2023-10-12 05:34] LABS: Alanine Aminotransferase 9 U/L (6-35); Albumin Level 2.3 g/dL (3.5-5.1); Alkaline Phosphatase 127 U/L (38-126); Anion Gap 2 mmol/L (8-16); Aspartate Amino Transferase 16 U/L (14-36); Bilirubin,Total 1.5 mg/dL (0.2-1.3); Blood Urea Nitrogen 9 mg/dL (7-17); Calcium 7.8 mg/dL (8.4-10.2); Carbon Dioxide 27 mmol/L (22-30); Chloride 106 mmol/L (98-107); Estimated CRCL calculation 92 ml/min; Estimated Glomerular Filt Rate > 60; Glucose 98 mg/dL (65-110); Magnesium 2.2 mg/dL (1.6-2.3); Potassium 3.3 mmol/L (3.4-5.0); Sodium 135 mmol/L (137-145)
[2023-10-12] MEDS: PIPERACILLN/TAZ 3.375GM/NS50ML 3.375 GM/50 ML BAG IVPB ×2 (05:51→12:04)
[2023-10-12] MEDS: LEVOTHYROXINE SODIUM 50 MCG TABLET PO (05:51)
[2023-10-12 05:52] LABS: Procalcitonin 0.2 ng/mL
[2023-10-12 05:54] LABS: Anisocytosis 1+ (NORMAL); Hypochromasia 2+ (NORMAL); Platelet Clumps Present; Platelet Estimate Adequate (Adequate); Poikilocytosis 2+ (NORMAL)
[2023-10-12 05:55] LABS: Burr Cells 2+ (NORMAL); Microcytosis 2+ (NORMAL); Ovalocytes 1+ (NORMAL); Schistocytes None Seen (NORMAL)
--- NOTE | 2023-10-12 08:27 | PM.IMPN ---
Progress Note: A&P Assessment and Plan (1) Abnormal CT of the abdomen: Code(s): R93.5 - Abnormal findings on diagnostic imaging of other abdominal regions, including retroperitoneum Status: Acute (2) Cirrhosis of liver with ascites: Code(s): K74.60 - Unspecified cirrhosis of liver; R18.8 - Other ascites Status: Acute (3) Urinary tract infection: Code(s): N39.0 - Urinary tract infection, site not specified Status: Acute (4) Pleural effusion on right: Code(s): J90 - Pleural effusion, not elsewhere classified Status: Acute (5) Colon adenocarcinoma: Code(s): C18.9 - Malignant neoplasm of colon, unspecified Status: Acute (6) Iron deficiency anemia: Code(s): D50.9 - Iron deficiency anemia, unspecified Status: Acute (7) Primary biliary cholangitis: Code(s): K74.3 - Primary biliary cirrhosis Status: Acute (8) Acute hypokalemia: Code(s): E87.6 - Hypokalemia Status: Acute Plan This is a very pleasant 63-year-old female with recent diagnosis of colonic adenocarcinoma, primary biliary cholangitis, cirrhosis, gastritis, hypothyroidism, iron deficiency anemia, and history of stroke with no residual deficits who presented to the emergency department via private vehicle from home for evaluation of weakness. The patient provides the following history. She was seen by GI in July 2023 for evaluation of elevated LFTs and positive mitochondrial antibodies which were reportedly noted on labs in August 2021. She was referred to hepatology at [facility] at that time but reportedly nobody ever called her to make an appointment and it sounds as though she was lost to follow-up until last fall. During that appointment she reported having chronic diarrhea with frequent urgency and accidents as well. Abdominal ultrasound at that time showed cirrhosis of the liver and a liver biopsy done several weeks later was consistent with primary biliary cholangitis, Scheuer stage [address] scan showed a 9.1 x 7.1 x 10.4 mass of the ascending colon/cecum, indeterminate right adrenal nodule, and findings compatible with cirrhosis to include portal hypertension, splenomegaly, and esophageal varices. Subsequent EGD showed findings of gastritis with no varices being seen. Several colon polyps were removed during colonoscopy including biopsies taken from a partially obstructing, infiltrative mass in the ascending colon which was tattooed. Right hemicolectomy was performed on 09/03/[address] Bustamante with pathology consistent with adenocarcinoma; 40 lymph nodes were negative for metastatic disease and surgical margins were negative. She has seen her primary care provider and surgeon in follow-up since that time and reports tolerating a normal diet though she continues to have multiple soft stools a day. She reported minimal abdominal discomfort managed with p.r.n. medications. The last several weeks she has not had much of an appetite and she has not been feeling well with generalized malaise, weakness, mild dysuria, and swelling in her legs. has noticed that she is breathing heavy with activity though the patient did not complain of that. She denies fever, sinus congestion, sore throat, cough, chest pain, pleuritic pain, palpitations, significant epigastric or abdominal pain, vomiting, diarrhea, melena, hematochezia. Admitted on 10/11/2023 #Weakness -multifactorial. Continues to improve. PT OT consulted. Dietary supplements ordered. #Acute hypoxic respiratory failure -Likely due to pleural effusion right side plus pulmonary edema. Status post thoracentesis. Continue to wean. -pending surface echo tomorrow. #Pleural effusion, right -status post thoracentesis 1 L serosanguineous fluid removal on 10/11/2023 -pending pleural fluid studies #Intra-abdominal fluid collection -unclear if it is a fluid collection or walled-off abscess. For now continue ceftriaxone and metronidazole. Pendi
--- NOTE | 2023-10-12 09:53 | PCPTNOTE ---
Attempted to see for physical therapy evaluation, pt was off floor for testing. Will continue to follow.
[2023-10-12] MEDS: FERROUS SULFATE 325 MG TABLET DR PO ×2 (11:45→16:58)
[2023-10-12] MEDS: ESCITALOPRAM OXALATE 10 MG TABLET 20 MG PO (11:45)
[2023-10-12] MEDS: FUROSEMIDE INJ 40 MG/4 ML VIAL IV PUSH ×2 (11:45→18:29)
[2023-10-12] MEDS: PANTOPRAZOLE 40 MG TABLET PO (11:46)
[2023-10-12] MEDS: SPIRONOLACTONE 50 MG TABLET 100 MG PO (11:58)
--- NOTE | 2023-10-12 13:43 | PM.PNGS ---
Progress Note: A&P Assessment and Plan (1) Intra-abdominal abscess: Code(s): K65.1 - Peritoneal abscess Status: Acute Assessment and Plan: exam benign, cont drain and abx, encourage po, OOB/IS Subjective Subjective Date/Time Seen: 10/12/23 13:43 Interval history: feels better, R sided perc drain placed earlier today, reports better appetite, breathing improved s/p thoracentesis Review of Systems Review of Systems: All systems reviewed & are unremarkable except as noted in HPI and below Exam Const: General: cooperative, comfortable and no acute distress Resp: Auscultation: diminished lung sounds Cardio: Rate: regular rate Rhythm: regular rhythm GI: Inspection: normal to inspection and non-distended GI Palp: Yes abdominal tenderness, Yes Soft to palpation, Yes Tenderness to palpation present (GI), No Guarding due to palpation present (GI) and No Rigid due to palpation Other: R sided drain c purulent drainage, L sided drain c serous drainage Objective Data Vital Signs Vital Signs: Vital Signs - 24 hr 10/11/23 14:00 10/11/23 17:17 10/11/23 16:40 Temperature 37.1 C Pulse Rate 103 H 105 H 101 H Respiratory Rate 32 H Blood Pressure 115/54 L Pulse Oximetry 90 Oxygen Delivery Oxygen Flow Rate 10/11/23 16:40 10/11/23 18:00 10/11/23 20:38 Temperature 36.8 C Pulse Rate 100 104 H Respiratory Rate 24 H 28 H Blood Pressure 99/54 L Pulse Oximetry 94 94 Oxygen Delivery Nasal Cannula Oxygen Flow Rate 2 10/11/23 20:00 10/11/23 22:00 10/12/23 00:27 Temperature 36.6 C Pulse Rate 101 H 97 94 Respiratory Rate 24 H Blood Pressure 114/53 L Pulse Oximetry 94 Oxygen Delivery Oxygen Flow Rate 10/12/23 00:00 10/12/23 02:00 10/12/23 04:20 Temperature 36.4 C Pulse Rate 98 91 96 Respiratory Rate 24 H Blood Pressure 102/51 L Pulse Oximetry 95 Oxygen Delivery Oxygen Flow Rate 10/12/23 04:21 10/12/23 04:21 10/12/23 04:00 Temperature Pulse Rate 96 Respiratory Rate Blood Pressure 105/51 L 112/58 L Pulse Oximetry Oxygen Delivery Oxygen Flow Rate 10/12/23 06:00 10/12/23 08:00 Temperature 36.2 C L Pulse Rate 87 89 Respiratory Rate 18 Blood Pressure 96/46 L Pulse Oximetry 95 Oxygen Delivery Oxygen Flow Rate Intake/Output Intake/Output: Intake & Output 10/09/23 10/10/23 10/11/23 10/12/23 23:59 23:59 23:59 23:59 Intake Total 960 760 400 Output Total 1 Balance 960 759 400 Meds/Results Medications: Active Medications Generic Name Dose Route Start Last Admin Trade Name Freq PRN Reason Stop Dose Admin Acetaminophen 650 mg 10/10/23 17:11 Acetaminophen 325 Mg Tablet PO Q6H PRN Mild Pain (1-3) or Fever Escitalopram Oxalate 20 mg 10/11/23 09:00 10/12/23 11:45 Escitalopram Oxalate 10 Mg Tablet PO 20 mg DAILY REYMUNDO Administration Ferrous Sulfate 325 mg 10/10/23 17:40 10/12/23 11:45 Ferrous Sulfate [address] PO 325 mg BID REYMUNDO Administration Furosemide 40 mg 10/12/23 09:00 10/12/23 11:45 Furosemide Inj 40 Mg/4 Ml Vial IV PUSH 40 mg BID REYMUNDO Administration Piperacillin/Tazobactam/Dextrose 3.375 gm in 50 mls @ 100 mls/hr 10/10/23 18:00 10/12/23 12:04 Zosyn 3.375 Gm/Ns 50 Ml IVPB 100 mls/hr Q6H REYMUNDO Administration Levothyroxine Sodium 50 mcg 10/11/23 06:30 10/12/23 05:51 Levothyroxine Sodium 50 Mcg Tablet PO 50 mcg 0630 REYMUNDO Administration Non-Formulary ( 0 each 10/11/23 21:00 10/11/23 21:30 Ursodiol 500 Mg Oral PO 11/10/23 20:59 250 each Tablet) BID REYMUNDO Administration Pantoprazole Sodium 40 mg 10/11/23 09:00 10/12/23 11:46 Pantoprazole 40 Mg Tablet PO 40 mg QAM REYMUNDO Administration Perflutren Lipid Microsphere 0 ml 10/10/23 17:11 Perflutren Lipid Microspheres 1.5 Ml Vial Diluted To 10 Ml Total Volume IV PUSH 10/13/23 17:11 ONCE PRN adequate visualization Protocol S
[2023-10-12 14:09] LABS: IFOB Positive Control Positive; Immunochemical Fecal Occult Bl Negative (N)
--- NOTE | 2023-10-12 15:59 | PC.NURSE ---
1415- IV site infiltrated- attempted x2 without success- IV nurse left for today- called- orders for midline-
[2023-10-12] MEDS: traMADol HCL (*CRX) 50 MG TABLET PO ×2 (17:00→22:55)
--- NOTE | 2023-10-12 17:11 | ECHO_ITS ---
Patient Info Name: Julianna Ireland Age: 63 years : 1960 Gender: Female Ht: 63 in Wt: 165 lbs BSA: 1.85 m2 HR: 97 bpm BP: 112 / 58 mmHg Technical Quality: Fair Exam Date: 10/12/2023 2:28 PM Exam Location: Echo Lab Patient Status: Inpatient Admit Date: 10/11/2023 Staff Ordering Physician: Joana Quarles PA-C Information Officer: Attending Provider: New Holder MD Referring Physician: Robina ARCINIEGA; Exam Type: CA echo doppler color flow Study Info Indications R60.9 - Edema, unspecified Complete two-dimensional, color flow and Doppler transthoracic echocardiogram is performed. Summary 1. Complete two-dimensional, color flow and Doppler transthoracic echocardiogram is performed. 2. Left ventricular chamber dimension is normal. 3. Left ventricular systolic function is normal, estimated at 60-65%. 4. The left ventricular diastolic function is grade I diastolic dysfunction. 5. E/e' 8 is minimally elevated. 6. Left atrial chamber dimension is mildly enlarged. 7. The mitral valve has mildly calcified annulus. 8. There is trace tricuspid valve regurgitation. 9. No pulmonary hypertension, estimated pulmonary arterial systolic pressure is 27 mmHg. Left Ventricle E/e' 8 is minimally elevated. Left ventricular chamber dimension is normal. Left ventricular systolic function is normal, estimated at 60-65%. The left ventricular diastolic function is grade I diastolic dysfunction. Right Ventricle Right ventricular systolic function is normal and with normal TAPSE 2.3 cm. Right ventricular chamber dimension is normal. Left Atria Left atrial chamber dimension is mildly enlarged. Right Atria Right atrial chamber dimension is normal. Aortic Valve The aortic valve is trileaflet. There is no aortic valve stenosis. There is no aortic valve regurgitation. Pulmonic Valve There is no pulmonic regurgitation. Mitral Valve The mitral valve has mildly calcified annulus. There is no mitral valve stenosis. There is no mitral valve regurgitation. Tricuspid Valve There is trace tricuspid valve regurgitation. No pulmonary hypertension, estimated pulmonary arterial systolic pressure is 27 mmHg. Pericardium/Pleural There is no pericardial effusion. Inferior Vena Cava Normal inferior vena cava with >50% collapse upon inspiration consistent with normal right atrial pressure, 5 mmHg. Aorta The aortic root size at the sinus of Valsalva is normal. Left Ventricular Outflow Tract Name Value Normal LVOT 2D LVOT Diameter 2.0 cm LVOT Doppler LVOT Peak Gradient 4 mmHg LVOT Mean Gradient 3 mmHg LVOT VTI 26 cm LVOT VTI/AV VTI Ratio 0.6 LVOT Stroke Volume 82 ml LVOT CO 6.4 l/min LVOT CI 3.5 l/min/m2 Pulmonic Valve Name Value Normal PV Doppler
--- NOTE | 2023-10-12 18:00 | PC.NURSE ---
[facility] IV therapy arrived to place midline
[2023-10-12] MEDS: VANCOMYCIN 2,000 MG/NS 500 ML 2,000 MG/500 ML BAG 250 MG IVPB (18:29)
[2023-10-12] MEDS: SALINE LOCK FLUSH 10 ML IV PUSH (22:14)
[2023-10-12] MEDS: CEFEPIME 2 GM/NS 50 ML 2 GM/50 ML BAG IVPB (22:14)
[2023-10-12] MEDS: metroNIDAZOLE 500 MG/ISO 100ML 500 MG/100 ML BAG 100 MG IVPB (22:14)
[2023-10-13] VITALS (21 sets, daily range): BP systolic 91–109; BP diastolic 50–57; PULSE 86–106; RESP 18–20; TEMP 36.1–36.8; O2SAT 92–98
[2023-10-13 05:32] LABS: Basophils Percent Auto 0.5 % (0.2-1.2); Eosinophils Absolute Auto 0.4 K/mm3 (0-0.3); Eosinophils Percent Auto 6.3 % (0-4.4); Hematocrit 26.2 % (37.0-47.0); Hemoglobin 7.9 g/dL (12.0-15.0); Immature Granulocyte Absolute 0.03 K/mm3 (0.00-0.031); Immature Granulocyte Percent A 0.5 % (0-0.5); Lymphocytes Absolute Auto 1.43 K/mm3 (0.9-3.2); Lymphocytes Percent Auto 21.5 % (18.3-44.2); Mean Corpuscular HGB Conc 30.2 g/dl (32-36); Mean Corpuscular Hemoglobin 27.3 pg (26-34); Mean Corpuscular Volume 90.7 fl (80-100); Mean Platelet Volume 8.7 fl (7.4-10.4); Monocytes Absolute Auto 0.6 K/mm3 (0.1-0.6); Monocytes Percent Auto 8.3 % (2.6-8.5); Neutrophils Absolute Auto 4.2 K/mm3 (1.3-6.7); Neutrophils Percent Auto 62.9 % (45.5-73.1); Platelet Count Result 315 k/mm3 (150-375); Red Blood Count 2.89 M/mm3 (4.2-5.4); Red Cell Distribution Width 17.7 % (11.5-14.5); White Blood Count 6.6 K/mm3 (4.5-10.0)
[2023-10-13 05:45] LABS: Alanine Aminotransferase 9 U/L (6-35); Albumin Level 2.2 g/dL (3.5-5.1); Alkaline Phosphatase 126 U/L (38-126); Anion Gap 3 mmol/L (8-16); Aspartate Amino Transferase 17 U/L (14-36); Bilirubin,Total 1.1 mg/dL (0.2-1.3); Blood Urea Nitrogen 7 mg/dL (7-17); Calcium 7.4 mg/dL (8.4-10.2); Carbon Dioxide 29 mmol/L (22-30); Chloride 104 mmol/L (98-107); Estimated CRCL calculation 79 ml/min; Estimated Glomerular Filt Rate > 60; Glucose 98 mg/dL (65-110); Magnesium 1.9 mg/dL (1.6-2.3); Potassium 2.7 mmol/L (3.4-5.0); Sodium 136 mmol/L (137-145)
[2023-10-13] MEDS: LEVOTHYROXINE SODIUM 50 MCG TABLET PO (06:02)
[2023-10-13] MEDS: traMADol HCL (*CRX) 50 MG TABLET PO (06:02)
[2023-10-13] MEDS: SALINE LOCK FLUSH 10 ML IV PUSH ×3 (06:03→20:49)
[2023-10-13] MEDS: CEFEPIME 2 GM/NS 50 ML 2 GM/50 ML BAG IVPB ×3 (06:03→22:01)
[2023-10-13] MEDS: metroNIDAZOLE 500 MG/ISO 100ML 500 MG/100 ML BAG 100 MG IVPB ×3 (06:03→20:50)
--- NOTE | 2023-10-13 08:39 | PM.IMPN ---
Progress Note: A&P Assessment and Plan (1) Abnormal CT of the abdomen: Code(s): R93.5 - Abnormal findings on diagnostic imaging of other abdominal regions, including retroperitoneum Status: Acute (2) Cirrhosis of liver with ascites: Code(s): K74.60 - Unspecified cirrhosis of liver; R18.8 - Other ascites Status: Acute (3) Urinary tract infection: Code(s): N39.0 - Urinary tract infection, site not specified Status: Acute (4) Pleural effusion on right: Code(s): J90 - Pleural effusion, not elsewhere classified Status: Acute (5) Colon adenocarcinoma: Code(s): C18.9 - Malignant neoplasm of colon, unspecified Status: Acute (6) Iron deficiency anemia: Code(s): D50.9 - Iron deficiency anemia, unspecified Status: Acute (7) Primary biliary cholangitis: Code(s): K74.3 - Primary biliary cirrhosis Status: Acute (8) Acute hypokalemia: Code(s): E87.6 - Hypokalemia Status: Acute Plan This is a very pleasant 63-year-old female with recent diagnosis of colonic adenocarcinoma, primary biliary cholangitis, cirrhosis, gastritis, hypothyroidism, iron deficiency anemia, and history of stroke with no residual deficits who presented to the emergency department via private vehicle from home for evaluation of weakness. The patient provides the following history. She was seen by GI in July 2023 for evaluation of elevated LFTs and positive mitochondrial antibodies which were reportedly noted on labs in August 2021. She was referred to hepatology at [facility] at that time but reportedly nobody ever called her to make an appointment and it sounds as though she was lost to follow-up until last fall. During that appointment she reported having chronic diarrhea with frequent urgency and accidents as well. Abdominal ultrasound at that time showed cirrhosis of the liver and a liver biopsy done several weeks later was consistent with primary biliary cholangitis, Scheuer stage [address] scan showed a 9.1 x 7.1 x 10.4 mass of the ascending colon/cecum, indeterminate right adrenal nodule, and findings compatible with cirrhosis to include portal hypertension, splenomegaly, and esophageal varices. Subsequent EGD showed findings of gastritis with no varices being seen. Several colon polyps were removed during colonoscopy including biopsies taken from a partially obstructing, infiltrative mass in the ascending colon which was tattooed. Right hemicolectomy was performed on 09/03/[address] Bustaamnte with pathology consistent with adenocarcinoma; 40 lymph nodes were negative for metastatic disease and surgical margins were negative. She has seen her primary care provider and surgeon in follow-up since that time and reports tolerating a normal diet though she continues to have multiple soft stools a day. She reported minimal abdominal discomfort managed with p.r.n. medications. The last several weeks she has not had much of an appetite and she has not been feeling well with generalized malaise, weakness, mild dysuria, and swelling in her legs. has noticed that she is breathing heavy with activity though the patient did not complain of that. She denies fever, sinus congestion, sore throat, cough, chest pain, pleuritic pain, palpitations, significant epigastric or abdominal pain, vomiting, diarrhea, melena, hematochezia. Admitted on 10/11/2023 #Weakness -multifactorial. Continues to improve. Dietary supplements ordered. -on 10/13 she has been walking independently and therapy discharged her. #Acute hypoxic respiratory failure -Likely due to pleural effusion right side and pulmonary edema. -surface echo on 10/12 demonstrating EF of 60-65% with grade 1 diastolic dysfunction, tricuspid valve regurgitation trace, pulmonary arterial systolic pressure 27 mmHg. Less likely this is due to clinical heart failure -weaned down to 1 L on 10/13. Status post right-sided thoracentesis and initiation of diur
[2023-10-13] MEDS: SPIRONOLACTONE 50 MG TABLET 100 MG PO (08:43)
[2023-10-13] MEDS: POTASSIUM CHLORIDE 20 MEQ ER TABLET 40 MEQ PO ×2 (08:43→18:14)
[2023-10-13] MEDS: ESCITALOPRAM OXALATE 10 MG TABLET 20 MG PO (08:43)
[2023-10-13] MEDS: FUROSEMIDE INJ 40 MG/4 ML VIAL IV PUSH ×2 (08:44→18:14)
[2023-10-13] MEDS: PANTOPRAZOLE 40 MG TABLET PO (08:44)
[2023-10-13] MEDS: FERROUS SULFATE 325 MG TABLET DR PO ×2 (08:44→18:14)
[2023-10-13] MEDS: VANCOMYCIN 1,250 MG/NS 250 ML 1,250 MG/250 ML BAG 166.67 MG IVPB (08:44)
--- NOTE | 2023-10-13 15:19 | PM.PNGS ---
Progress Note: A&P Assessment and Plan (1) Intra-abdominal abscess: Code(s): K65.1 - Peritoneal abscess Status: Acute Assessment and Plan: Clinically improving. WBC normal. Abd exam benign. Continue to monitor perc drains, continue antibiotics. Appetite improving and tolerating a regular diet. Plan I have discussed the patient's case and plan of care with Dr. Bustamante. Subjective Subjective Date/Time Seen: 10/13/23 15:19 Patient reports: no new complaints, feels better, tolerating a regular diet, flatus, bowel movement and afebrile Interval history: Doing well today. She feels better than yesterday. She is sitting in the chair. She has some soreness near the perc drains but no abdominal pain. Her appetite has improved and she is eating well. Exam Const: General: No acute distress Orientation/consciousness: patient oriented x3 GI: Inspection: non-distended GI Palp: Yes Soft to palpation, No Tenderness to palpation present (GI), No Guarding due to palpation present (GI) and No Rebound tenderness present Auscultation: normal bowel sounds Other: RLQ perc drains x 2, more medial drain with serous drainage, lateral drain with purulent luis drainage Objective Data Vital Signs Vital Signs: Vital Signs - 24 hr 10/12/23 16:00 10/12/23 16:00 10/12/23 16:00 Temperature 97.4 F L Pulse Rate 101 H 101 H 101 H Respiratory Rate 18 18 Blood Pressure 105/49 L Pulse Oximetry 95 95 Oxygen Delivery Nasal Cannula Oxygen Flow Rate 2 10/12/23 18:00 10/12/23 19:08 10/12/23 19:09 Temperature 98.2 F Pulse Rate 108 H 102 H 106 H Respiratory Rate 22 H Blood Pressure 103/57 L 107/50 L Pulse Oximetry 94 96 Oxygen Delivery Oxygen Flow Rate 10/12/23 19:10 10/12/23 20:35 10/12/23 23:18 Temperature 98.2 F 97.8 F Pulse Rate 103 H 98 96 Respiratory Rate 18 18 Blood Pressure 107/49 L 105/49 L 110/51 L Pulse Oximetry 93 93 94 Oxygen Delivery Oxygen Flow Rate 10/12/23 20:00 10/12/23 20:00 10/12/23 22:00 Temperature Pulse Rate 98 94 Respiratory Rate Blood Pressure Pulse Oximetry 95 Oxygen Delivery Nasal Cannula Oxygen Flow Rate 2 10/13/23 00:00 10/13/23 00:00 10/13/23 02:00 Temperature Pulse Rate 94 90 Respiratory Rate Blood Pressure Pulse Oximetry 95 Oxygen Delivery Nasal Cannula Oxygen Flow Rate 1.5 10/13/23 03:28 10/13/23 02:00 10/13/23 04:00 Temperature 97.7 F Pulse Rate 91 90 Respiratory Rate 18 Blood Pressure 103/54 L Pulse Oximetry 94 94 Oxygen Delivery Nasal Cannula Oxygen Flow Rate 1 10/13/23 04:00 10/13/23 06:00 10/13/23 07:56 Temperature 97.8 F Pulse Rate 88 93 Respiratory Rate 18 Blood Pressure 102/55 L Pulse Oximetry 95 95 Oxygen Delivery Nasal Cannula Oxygen Flow Rate 1 10/13/23 07:56 10/13/23 08:06 10/13/23 07:57 Temperature 97 F L Pulse Rate 93 95 Respiratory Rate 18 Blood Pressure 102/55 L 91/52 L Pulse Oximetry 95 98 Oxygen Delivery Nasal Cannula Oxygen Flow Rate 1 10/13/23 07:59 10/13/23 08:02 10/13/23 08:06 Temperature Pulse Rate 95 99 99 Respiratory Rate Blood Pressure 91/52 L 93/50 L 93/50 L Pulse Oximetry 98 97 97 Oxygen Delivery Oxygen Flow Rate 10/13/23 08:00 10/13/23 10:00 10/13/23 11:42 Temperature 97.3 F L Pulse Rate 99 94 99 Respiratory Rate 20 Blood Pressure 98/52 L Pulse Oximetry 93 Oxygen Delivery Oxygen Flow Rate 10/13/23 12:00 10/13/23 14:00 Temperature Pulse Rate 100 99 Respiratory Rate Blood Pressure Pulse Oximetry Oxygen Delivery Oxygen Flow Rate Intake/Output Intake/Output: Intake & Output 10/10/23 10/11/23 10/12/23 10/13/23 23:59 23:59 23:59 23:59 Intake Total 717 935 8304 860 Output Total 1 820 1050 Balance 960 759 870 -190 Meds/Results Medications: Active Medications Generic Name Dose Route Start Last Admin Trade Name Freq PRN Reason Stop D
[2023-10-13 15:37] LABS: Magnesium 1.8 mg/dL (1.6-2.3)
[2023-10-13] MEDS: VANCOMYCIN 1,250 MG/NS 250 ML 1,250 MG/250 ML BAG 166.7 MG IVPB (20:17)
[2023-10-13 21:13] LABS: Glucose Pleural Fluid 90 mg/dL; Total Protein Pleural Fluid 3.1 g/dL
[2023-10-13 23:41] LABS: Anion Gap 2 mmol/L (8-16); Blood Urea Nitrogen 8 mg/dL (7-17); Calcium 7.5 mg/dL (8.4-10.2); Carbon Dioxide 29 mmol/L (22-30); Chloride 102 mmol/L (98-107); Estimated CRCL calculation 79 ml/min; Estimated Glomerular Filt Rate > 60; Glucose 99 mg/dL (65-110); Potassium 3.4 mmol/L (3.4-5.0); Sodium 133 mmol/L (137-145)
[2023-10-14] VITALS (19 sets, daily range): BP systolic 94–126; BP diastolic 49–69; PULSE 65–111; RESP 16–20; TEMP 36.3–36.7; O2SAT 91–100
[2023-10-14 04:42] LABS: Basophils Absolute Auto 0.1 K/mm3 (0.0-0.1); Basophils Percent Auto 0.7 % (0.2-1.2); Eosinophils Absolute Auto 0.5 K/mm3 (0-0.3); Eosinophils Percent Auto 6.9 % (0-4.4); Hemoglobin 8.2 g/dL (12.0-15.0); Immature Granulocyte Absolute 0.04 K/mm3 (0.00-0.031); Immature Granulocyte Percent A 0.6 % (0-0.5); Lymphocytes Absolute Auto 1.55 K/mm3 (0.9-3.2); Lymphocytes Percent Auto 22.7 % (18.3-44.2); Mean Corpuscular HGB Conc 30.4 g/dl (32-36); Mean Corpuscular Hemoglobin 26.9 pg (26-34); Mean Corpuscular Volume 88.5 fl (80-100); Mean Platelet Volume 8.7 fl (7.4-10.4); Monocytes Absolute Auto 0.6 K/mm3 (0.1-0.6); Monocytes Percent Auto 8.1 % (2.6-8.5); Neutrophils Absolute Auto 4.2 K/mm3 (1.3-6.7); Platelet Count Result 310 k/mm3 (150-375); Red Blood Count 3.05 M/mm3 (4.2-5.4); Red Cell Distribution Width 17.5 % (11.5-14.5); White Blood Count 6.8 K/mm3 (4.5-10.0)
[2023-10-14 05:02] LABS: Alanine Aminotransferase 9 U/L (6-35); Albumin Level 2.1 g/dL (3.5-5.1); Alkaline Phosphatase 132 U/L (38-126); Anion Gap 2 mmol/L (8-16); Aspartate Amino Transferase 17 U/L (14-36); Bilirubin,Total 1.1 mg/dL (0.2-1.3); Blood Urea Nitrogen 8 mg/dL (7-17); Calcium 7.6 mg/dL (8.4-10.2); Carbon Dioxide 28 mmol/L (22-30); Chloride 102 mmol/L (98-107); Estimated CRCL calculation 78 ml/min; Estimated Glomerular Filt Rate > 60; Glucose 95 mg/dL (65-110); Magnesium 1.8 mg/dL (1.6-2.3); Potassium 3.3 mmol/L (3.4-5.0); Sodium 132 mmol/L (137-145)
[2023-10-14 05:24] LABS: Vancomycin Trough 21.7 ug/mL (10.0-20.0)
[2023-10-14] MEDS: LEVOTHYROXINE SODIUM 50 MCG TABLET PO (06:14)
[2023-10-14] MEDS: metroNIDAZOLE 500 MG/ISO 100ML 500 MG/100 ML BAG 100 MG IVPB ×3 (06:15→22:39)
[2023-10-14] MEDS: CEFEPIME 2 GM/NS 50 ML 2 GM/50 ML BAG IVPB ×3 (06:15→23:52)
[2023-10-14] MEDS: SALINE LOCK FLUSH 10 ML IV PUSH ×2 (06:17→13:37)
[2023-10-14] MEDS: VANCOMYCIN 1,000 MG/NS 250 ML 1,000 MG/250 ML BAG 250 MG IVPB ×2 (08:57→20:43)
[2023-10-14] MEDS: POTASSIUM CHLORIDE 20 MEQ ER TABLET 40 MEQ PO ×2 (08:58→17:06)
[2023-10-14] MEDS: PANTOPRAZOLE 40 MG TABLET PO (08:59)
[2023-10-14] MEDS: FERROUS SULFATE 325 MG TABLET DR PO ×2 (08:59→17:06)
[2023-10-14] MEDS: ESCITALOPRAM OXALATE 10 MG TABLET 20 MG PO (08:59)
[2023-10-14 10:11] LABS: Albumin Pleural Fluid 1.1 g/dL
--- NOTE | 2023-10-14 12:05 | PM.PNGS ---
Progress Note: A&P Assessment and Plan (1) Intra-abdominal abscess: Code(s): K65.1 - Peritoneal abscess Status: Acute Assessment and Plan: exam benign, will get CT to check abscess cavity, if resolved will remove drain, cont abx Subjective Subjective Date/Time Seen: 10/14/23 12:05 Interval history: feels better, drains with much less output, angelo diet Review of Systems Review of Systems: All systems reviewed & are unremarkable except as noted in HPI and below Exam Const: General: cooperative, comfortable and no acute distress Cardio: Rate: regular rate Rhythm: regular rhythm GI: Inspection: normal to inspection and non-distended GI Palp: No abdominal tenderness, Yes Soft to palpation and No Tenderness to palpation present (GI) Other: drains x 2 c minimal output Objective Data Vital Signs Vital Signs: Vital Signs - 24 hr 10/13/23 14:00 10/13/23 15:45 10/13/23 16:00 Temperature 36.7 C Pulse Rate 99 102 H 100 Respiratory Rate 20 Blood Pressure 96/50 L Pulse Oximetry 95 Oxygen Delivery Oxygen Flow Rate 10/13/23 18:00 10/13/23 20:19 10/13/23 20:00 Temperature 36.8 C Pulse Rate 86 106 H Respiratory Rate 20 Blood Pressure 109/56 L Pulse Oximetry 96 92 Oxygen Delivery Nasal Cannula Oxygen Flow Rate 1 10/13/23 22:00 10/13/23 23:57 10/14/23 00:00 Temperature 36.5 C Pulse Rate 104 H 103 H Respiratory Rate 20 Blood Pressure 96/57 L Pulse Oximetry 95 94 Oxygen Delivery Nasal Cannula Oxygen Flow Rate 1 10/14/23 00:00 10/13/23 20:00 10/14/23 02:00 Temperature Pulse Rate 100 105 H 98 Respiratory Rate Blood Pressure Pulse Oximetry Oxygen Delivery Oxygen Flow Rate 10/14/23 04:28 10/14/23 04:00 10/14/23 04:00 Temperature 36.3 C L Pulse Rate 97 96 Respiratory Rate 20 Blood Pressure 101/58 L Pulse Oximetry 93 94 Oxygen Delivery Nasal Cannula Oxygen Flow Rate 1 10/14/23 06:00 10/14/23 07:53 10/14/23 07:54 Temperature 36.5 C 36.5 C Pulse Rate 97 96 96 Respiratory Rate 18 18 Blood Pressure 99/57 L 99/57 L Pulse Oximetry 94 95 Oxygen Delivery Oxygen Flow Rate 02/14/24 07:54 10/14/23 07:57 10/14/23 08:00 Temperature Pulse Rate 80 99 Respiratory Rate Blood Pressure 95/49 L 94/69 L Pulse Oximetry Oxygen Delivery Oxygen Flow Rate 10/14/23 10:00 Temperature Pulse Rate 103 H Respiratory Rate Blood Pressure Pulse Oximetry Oxygen Delivery Oxygen Flow Rate Intake/Output Intake/Output: Intake & Output 10/11/23 10/12/23 10/13/23 10/14/23 23:59 23:59 23:59 23:59 Intake Total 760 1690 1550 1070 Output Total 1 820 2851 Balance 759 870 -1301 1070 Meds/Results Medications: Active Medications Generic Name Dose Route Start Last Admin Trade Name Farheen PRN Reason Stop Dose Admin Escitalopram Oxalate 20 mg 10/11/23 09:00 10/14/23 08:59 Escitalopram Oxalate 10 Mg Tablet PO 20 mg DAILY REYMUNDO Administration Ferrous Sulfate 325 mg 10/10/23 17:40 10/14/23 08:59 Ferrous Sulfate [address] PO 325 mg BID REYMUNDO Administration Furosemide 40 mg 10/12/23 09:00 10/13/23 18:14 Furosemide Inj 40 Mg/4 Ml Vial IV PUSH 40 mg BID REYMUNDO Administration Cefepime HCl 2 gm in 50 mls @ 100 mls/hr 10/12/23 15:00 10/14/23 06:15 Maxipime 2 Gm/Ns 50 Ml IVPB 100 mls/hr Q8H REYMUNDO Administration Metronidazole 500 mg in 100 mls @ 100 mls/hr 10/12/23 22:00 10/14/23 06:15 Flagyl 500 Mg/Iso Soln 100 Ml IVPB 100 mls/hr Q8HR REYMUNDO Administration Vancomycin HCl 1,000 mg in 250 mls @ 250 mls/hr 10/14/23 09:00 10/14/23 08:57 Vancomycin 1,000 Mg/Ns 250 Ml IVPB 250 mls/hr Q12HR REYMUNDO Administration Levothyroxine Sodium 50 mcg 10/11/23 06:30 10/14/23 06:14 Levothyroxine Sodium 50 Mcg Tablet PO 50 mcg 0630 REYMUNDO Administration Non-Formulary ( 0 each 10/11/23 21:00 10/14/23 09:00 Ursodiol 500 Mg Oral PO
--- NOTE | 2023-10-14 12:48 | PM.CNPUL ---
Assessment and Plan Assessment and plan (1) Pleural effusion on right: Code(s): J90 - Pleural effusion, not elsewhere classified Status: Acute Assessment and Plan: A 63-year-old female patient, who recently underwent a colectomy due to colon adenocarcinoma, was readmitted to the hospital due to generalized weakness and shortness of breath. She has now been diagnosed with an abdominal abscess. Her treatment included tube drainage and antibiotics, in response to which she appears to be improving, as indicated by her latest abdominal CT scan. The abdominal fluid culture revealed the presence of Clostridium perfringens. Her pleural effusion is evidently related to the abdominal condition. Importantly, there were no signs of pleural fluid in the chest imaging studies conducted before her abdominal surgery in early August this year. Unfortunately, there were no chest imaging studies available from the perioperative period last month. Thoracentesis did not reveal any characteristics consistent with empyema. The neutrophil count was not elevated, and the pleural fluid glucose level was not low. LDH was not evaluated. There was growth of some Gram-positive cocci in the anaerobic bottle of the pleural fluid, the significance of which is currently uncertain. The patient's case was reviewed with the hospitalist. The plan is to continue monitoring her respiratory status and await the final pleural fluid culture report. There is no need to adjust her antibiotic treatment at this stage. The patient may require a new thoracentesis in the coming days. (2) Intra-abdominal abscess: Code(s): K65.1 - Peritoneal abscess Status: Acute (3) Adenocarcinoma: Code(s): C80.1 - Malignant (primary) neoplasm, unspecified Status: Acute (4) Cirrhosis of liver with ascites: Code(s): K74.60 - Unspecified cirrhosis of liver; R18.8 - Other ascites Status: Acute (5) Abnormal CT of the abdomen: Code(s): R93.5 - Abnormal findings on diagnostic imaging of other abdominal regions, including retroperitoneum Status: Acute (6) Primary biliary cholangitis: Code(s): K74.3 - Primary biliary cirrhosis Status: Acute History of Present Illness History of Present Illness Consult date: 10/14/23 Chief complaint: Pleural Effusion,Intra-abdominal Abscess,Hypokalem Narrative: This document details a pulmonary consultation for a 63-year-old female patient with a right pleural effusion. She reported a week-long history of escalating weakness and shortness of breath. Her medical history includes primary biliary cholangitis, cirrhosis, hypothyroidism, iron deficiency anemia, and a stroke. Around five weeks ago, she underwent a right hemicolectomy due to colonic adenocarcinoma. In recent weeks, she has experienced weakness and mild swelling in her lower extremities. She has not reported fever, cough, chest pain, hemoptysis, vomiting, or diarrhea. During her evaluation in the emergency room, she was found to have a moderate-sized right pleural effusion, almost complete atelectasis of the right middle and lower lobes, changes related to the right hemicolectomy, a 6.2 x 5.0 cm abscess in the right pericolic gutter, and a moderate volume of abdominal ascites. No evidence of DVT was found in the lower extremity ultrasound. She has since been diagnosed with an abdominal abscess and is on antibiotics. The ascitic fluid culture revealed Clostridium perfringens. She also underwent a right thoracentesis and approximately 1000 mL of serosanguineous fluid was removed. The pleural fluid is likely exudate, as indicated by elevated total protein, but there was no evidence of low glucose. The pleural fluid was primarily lymphocytic, containing 17% neutrophils. The preliminary pleural fluid anaerobic culture report showed Gram-positive cocci. The patient is on supplemental oxygen via a nasal cannula and reports no respiratory complaints at rest.
--- NOTE | 2023-10-14 13:38 | PCOTNOTE ---
D/C pt. from services, pt. declines additional OT services at this time. Per previous OT treatments, pt. demonstrates good safety awareness, family/social supports, adequate knowledge and agreement for home exercise program, as well as I in functional mobility in room.
--- NOTE | 2023-10-14 14:30 | PM.IMPN ---
Progress Note: A&P Assessment and Plan (1) Intra-abdominal abscess: Code(s): K65.1 - Peritoneal abscess Status: Acute (2) Pleural effusion on right: Code(s): J90 - Pleural effusion, not elsewhere classified Status: Acute (3) Cirrhosis of liver with ascites: Code(s): K74.60 - Unspecified cirrhosis of liver; R18.8 - Other ascites Status: Acute (4) Urinary tract infection: Code(s): N39.0 - Urinary tract infection, site not specified Status: Acute (5) Colon adenocarcinoma: Code(s): C18.9 - Malignant neoplasm of colon, unspecified Status: Acute (6) Iron deficiency anemia: Code(s): D50.9 - Iron deficiency anemia, unspecified Status: Acute (7) Primary biliary cholangitis: Code(s): K74.3 - Primary biliary cirrhosis Status: Acute (8) Acute hypokalemia: Code(s): E87.6 - Hypokalemia Status: Acute Plan This is a very pleasant 63-year-old female with recent diagnosis of colonic adenocarcinoma, primary biliary cholangitis, cirrhosis, gastritis, hypothyroidism, iron deficiency anemia, and history of stroke with no residual deficits who presented to the emergency department via private vehicle from home for evaluation of weakness. The patient provides the following history. She was seen by GI in July 2023 for evaluation of elevated LFTs and positive mitochondrial antibodies which were reportedly noted on labs in August 2021. She was referred to hepatology at [facility] at that time but reportedly nobody ever called her to make an appointment and it sounds as though she was lost to follow-up until last fall. During that appointment she reported having chronic diarrhea with frequent urgency and accidents as well. Abdominal ultrasound at that time showed cirrhosis of the liver and a liver biopsy done several weeks later was consistent with primary biliary cholangitis, Scheuer stage [address] scan showed a 9.1 x 7.1 x 10.4 mass of the ascending colon/cecum, indeterminate right adrenal nodule, and findings compatible with cirrhosis to include portal hypertension, splenomegaly, and esophageal varices. Subsequent EGD showed findings of gastritis with no varices being seen. Several colon polyps were removed during colonoscopy including biopsies taken from a partially obstructing, infiltrative mass in the ascending colon which was tattooed. Right hemicolectomy was performed on 09/03/[address] Bustamante with pathology consistent with adenocarcinoma; 40 lymph nodes were negative for metastatic disease and surgical margins were negative. She has seen her primary care provider and surgeon in follow-up since that time and reports tolerating a normal diet though she continues to have multiple soft stools a day. She reported minimal abdominal discomfort managed with p.r.n. medications. The last several weeks she has not had much of an appetite and she has not been feeling well with generalized malaise, weakness, mild dysuria, and swelling in her legs. has noticed that she is breathing heavy with activity though the patient did not complain of that. She denies fever, sinus congestion, sore throat, cough, chest pain, pleuritic pain, palpitations, significant epigastric or abdominal pain, vomiting, diarrhea, melena, hematochezia. Admitted on 10/11/2023 #Weakness -multifactorial. Continues to improve. Dietary supplements ordered. -on 10/13 she has been walking independently and therapy discharged her. #Acute hypoxic respiratory failure -Likely due to pleural effusion right side and pulmonary edema. -surface echo on 10/12 demonstrating EF of 60-65% with grade 1 diastolic dysfunction, tricuspid valve regurgitation trace, pulmonary arterial systolic pressure 27 mmHg. Less likely this is due to clinical heart failure -weaned down to 1 L on 10/13. Status post right-sided thoracentesis and initiation of diuretics. Continue to wean #Pleural effusion, right -status post thoracentes
[2023-10-15] VITALS (18 sets, daily range): BP systolic 93–111; BP diastolic 47–68; PULSE 97–110; RESP 18–26; TEMP 36.3–36.8; O2SAT 90–96
[2023-10-15] MEDS: SALINE LOCK FLUSH 10 ML IV PUSH ×4 (00:41→21:09)
[2023-10-15 05:53] LABS: Basophils Absolute Auto 0.1 K/mm3 (0.0-0.1); Basophils Percent Auto 0.9 % (0.2-1.2); Eosinophils Absolute Auto 0.6 K/mm3 (0-0.3); Eosinophils Percent Auto 8.7 % (0-4.4); Hematocrit 26.7 % (37.0-47.0); Hemoglobin 8.1 g/dL (12.0-15.0); Immature Granulocyte Absolute 0.06 K/mm3 (0.00-0.031); Immature Granulocyte Percent A 0.9 % (0-0.5); Lymphocytes Absolute Auto 1.47 K/mm3 (0.9-3.2); Lymphocytes Percent Auto 23.2 % (18.3-44.2); Mean Corpuscular HGB Conc 30.3 g/dl (32-36); Mean Corpuscular Hemoglobin 27.3 pg (26-34); Mean Corpuscular Volume 89.9 fl (80-100); Mean Platelet Volume 8.6 fl (7.4-10.4); Monocytes Absolute Auto 0.6 K/mm3 (0.1-0.6); Neutrophils Absolute Auto 3.6 K/mm3 (1.3-6.7); Neutrophils Percent Auto 56.3 % (45.5-73.1); Platelet Count Result 305 k/mm3 (150-375); Red Blood Count 2.97 M/mm3 (4.2-5.4); Red Cell Distribution Width 17.8 % (11.5-14.5); White Blood Count 6.3 K/mm3 (4.5-10.0)
[2023-10-15] MEDS: metroNIDAZOLE 500 MG/ISO 100ML 500 MG/100 ML BAG 100 MG IVPB ×3 (06:28→21:09)
[2023-10-15] MEDS: LEVOTHYROXINE SODIUM 50 MCG TABLET PO (06:53)
[2023-10-15] MEDS: CEFEPIME 2 GM/NS 50 ML 2 GM/50 ML BAG IVPB ×3 (06:54→23:16)
[2023-10-15 07:11] LABS: Alanine Aminotransferase 8 U/L (6-35); Albumin Level 2.1 g/dL (3.5-5.1); Alkaline Phosphatase 121 U/L (38-126); Anion Gap 0 mmol/L (8-16); Aspartate Amino Transferase 19 U/L (14-36); Blood Urea Nitrogen 9 mg/dL (7-17); CRP 4.7 mg/dL (<1.0); Calcium 7.8 mg/dL (8.4-10.2); Carbon Dioxide 26 mmol/L (22-30); Chloride 106 mmol/L (98-107); Estimated CRCL calculation 92 ml/min; Estimated Glomerular Filt Rate > 60; Glucose 93 mg/dL (65-110); Magnesium 1.8 mg/dL (1.6-2.3); Phosphorus 2.4 mg/dL (2.5-4.5); Potassium 4.2 mmol/L (3.4-5.0); Sodium 132 mmol/L (137-145)
--- NOTE | 2023-10-15 09:23 | PM.PNGS ---
Progress Note: A&P Assessment and Plan (1) Intra-abdominal abscess: Code(s): K65.1 - Peritoneal abscess Status: Acute Assessment and Plan: abscess improved, will flush drain, cont drain and abx, ok to dc home c drain care and repeat CT next week (2) Pleural effusion on right: Code(s): J90 - Pleural effusion, not elsewhere classified Status: Acute Assessment and Plan: doing well on RA, ? repeat thoracentesis Subjective Subjective Date/Time Seen: 10/15/23 09:23 Interval history: feels much better, angelo diet, +bowel fxn, no abd pain Review of Systems Review of Systems: All systems reviewed & are unremarkable except as noted in HPI and below Exam Const: General: cooperative, comfortable and no acute distress Resp: Auscultation: crackles and diminished lung sounds Cardio: Rate: regular rate Rhythm: regular rhythm GI: Inspection: normal to inspection and non-distended GI Palp: No abdominal tenderness, Yes Soft to palpation and No Tenderness to palpation present (GI) Other: R sided drain c scant output, L sided c ascites Objective Data Vital Signs Vital Signs: Vital Signs - 24 hr 10/14/23 10:00 10/14/23 12:00 10/14/23 12:00 Temperature 36.6 C Pulse Rate 103 H 65 105 H Respiratory Rate 17 Blood Pressure 102/49 L Pulse Oximetry 100 Oxygen Delivery Oxygen Flow Rate 10/14/23 14:00 10/14/23 16:13 10/14/23 16:00 Temperature 36.7 C Pulse Rate 102 H 111 H 105 H Respiratory Rate 16 Blood Pressure 103/50 L Pulse Oximetry 92 Oxygen Delivery Oxygen Flow Rate 10/14/23 18:00 10/14/23 20:07 10/14/23 20:00 Temperature 36.4 C L Pulse Rate 101 H 108 H 108 H Respiratory Rate 16 16 Blood Pressure 111/61 Pulse Oximetry 91 91 Oxygen Delivery Nasal Cannula Oxygen Flow Rate 2 10/14/23 20:00 10/14/23 22:00 10/15/23 00:00 Temperature Pulse Rate 106 H 100 99 Respiratory Rate Blood Pressure Pulse Oximetry Oxygen Delivery Oxygen Flow Rate 10/15/23 00:00 10/14/23 23:46 10/15/23 02:00 Temperature 36.7 C Pulse Rate 99 110 H 99 Respiratory Rate 18 18 Blood Pressure 126/60 Pulse Oximetry 93 93 Oxygen Delivery Nasal Cannula Oxygen Flow Rate 3 10/15/23 04:00 10/15/23 04:00 10/15/23 04:00 Temperature 36.3 C L Pulse Rate 98 99 100 Respiratory Rate 18 21 H Blood Pressure 107/68 Pulse Oximetry 93 93 Oxygen Delivery Nasal Cannula Oxygen Flow Rate 2 10/15/23 04:00 10/15/23 06:00 10/15/23 08:00 Temperature 36.4 C Pulse Rate 110 H 97 98 Respiratory Rate 22 H 26 H Blood Pressure 96/65 L 98/51 L Pulse Oximetry 90 93 Oxygen Delivery Oxygen Flow Rate 10/15/23 08:00 Temperature Pulse Rate Respiratory Rate Blood Pressure Pulse Oximetry Oxygen Delivery Room Air Oxygen Flow Rate Intake/Output Intake/Output: Intake & Output 10/12/23 10/13/23 10/14/23 10/15/23 23:59 23:59 23:59 23:59 Intake Total 1690 1550 1840 410 Output Total 820 2851 395 Balance 870 -1301 1840 15 Meds/Results Medications: Active Medications Generic Name Dose Route Start Last Admin Trade Name Jose Miguelq PRN Reason Stop Dose Admin Escitalopram Oxalate 20 mg 10/11/23 09:00 10/14/23 08:59 Escitalopram Oxalate 10 Mg Tablet PO 20 mg DAILY REYMUNDO Administration Ferrous Sulfate 325 mg 10/10/23 17:40 10/14/23 17:06 Ferrous Sulfate [address] PO 325 mg BID REYMUNDO Administration Furosemide 40 mg 10/12/23 09:00 10/13/23 18:14 Furosemide Inj 40 Mg/4 Ml Vial IV PUSH 40 mg BID REYMUNDO Administration Cefepime HCl 2 gm in 50 mls @ 100 mls/hr 10/12/23 15:00 10/15/23 06:54 Maxipime 2 Gm/Ns 50 Ml IVPB 100 mls/hr Q8H REYMUNDO Administration Metronidazole 500 mg in 100 mls @ 100 mls/hr 10/12/23 22:00 10/15/23 06:28 Flagyl 500 Mg/Iso Soln 100 Ml IVPB 100 mls/hr Q8HR REYMUNDO Administration Vancomycin HCl 1,000 mg in 250 mls @ 250 mls/hr 10/14/23 09:
--- NOTE | 2023-10-15 09:36 | PM.PNPUL ---
Progress Note: A&P Assessment and Plan (1) Pleural effusion on right: Code(s): J90 - Pleural effusion, not elsewhere classified Status: Acute Assessment and Plan: A 63-year-old female patient, who recently underwent a colectomy due to colon adenocarcinoma, was readmitted to the hospital due to generalized weakness and shortness of breath. She has now been diagnosed with an abdominal abscess. Her treatment included tube drainage and antibiotics, in response to which she appears to be improving, as indicated by her latest abdominal CT scan. The abdominal fluid culture revealed the presence of Clostridium perfringens. Her pleural effusion is evidently related to the abdominal condition. Importantly, there were no signs of pleural fluid in the chest imaging studies conducted before her abdominal surgery in early August this year. Unfortunately, there were no chest imaging studies available from the perioperative period last month. Thoracentesis did not reveal any characteristics consistent with empyema. The neutrophil count was not elevated, and the pleural fluid glucose level was not low. LDH was not evaluated. There was growth of some Gram-positive cocci in the anaerobic bottle of the pleural fluid, the significance of which is currently uncertain. The patient's case was reviewed with the hospitalist. The plan is to continue monitoring her respiratory status and await the final pleural fluid culture report. There is no need to adjust her antibiotic treatment at this stage. On today's exam the patient has dullness to percussion right base posteriorly, which is consistent with the large pleural effusions seen on last abdominal CT. She has no signs of ongoing infection such as leukocytosis fevers. In addition abdominal fluid has significantly decreased. Plan: await final pleural fluid culture report. I would recommend repeat thoracentesis to evacuate right chest cavity prior to DC home. 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 Currently on room air, using supplemental oxygen just at night. Last abdominal CT showed large pleural effusion on right with associated lung atelectasis. Afebrile while on antibiotics. Final pleural culture pending. Has no leukocytosis. Abdominal tubing drainage less than before. Exam Narrative: GENERAL APPEARANCE: Well developed, well nourished, alert and cooperative, and appears to be in no acute distress while on supplemental oxygen via nasal cannula SKIN: Inspection of the skin reveals no rashes, ulcerations or petechiae. HEENT: Sclerae anicteric and conjunctivae pink and moist. Extraocular movements were intact and pupils were equal, round, and reactive to light. The oral mucosa, hard and soft palate, tongue and posterior pharynx were normal. NECK: Supple. There was no thyroid enlargement, and no tenderness, or masses were felt. CHEST: Normal AP diameter and normal contour without any kyphoscoliosis. LUNGS: Dullness to percussion decreased breath sounds at right base posteriorly, no wheezing CARDIAC: There was a regular rate and rhythm without any murmurs. ABDOMEN: Soft and nontender with normal bowel sounds. Drainage catheter in place. There was no organomegaly. LYMPH NODES: No lymphadenopathy was appreciated in the neck. EXTREMITIES: No cyanosis, clubbing. Trace pedal edema NEUROLOGIC: Alert and oriented x 3. Normal affect. Objective Data Vital Signs Vital Signs: Vital Signs - 24 hr 10/14/23 10:00
[2023-10-15] MEDS: FERROUS SULFATE 325 MG TABLET DR PO ×2 (09:41→16:56)
[2023-10-15] MEDS: ESCITALOPRAM OXALATE 10 MG TABLET 20 MG PO (09:41)
[2023-10-15] MEDS: PANTOPRAZOLE 40 MG TABLET PO (09:42)
[2023-10-15] MEDS: POTASSIUM/PHOSPHORUS/SODIUM 1.5 GM PACKET 1 PACKET PO (09:42)
[2023-10-15] MEDS: POTASSIUM CHLORIDE 20 MEQ ER TABLET PO (09:42)
[2023-10-15] MEDS: VANCOMYCIN 1,000 MG/NS 250 ML 1,000 MG/250 ML BAG 250 MG IVPB ×2 (09:50→22:10)
[2023-10-15] MEDS: traMADol HCL (*CRX) 50 MG TABLET PO (12:38)
--- NOTE | 2023-10-15 14:25 | PC.NURSE ---
On 10/15/23, the student, [ Satish Joy], provided care and completed [facility] documentation on this patient. I have reviewed the student's documentation and agree with the findings.
--- NOTE | 2023-10-15 14:55 | PM.IMPN ---
Progress Note: A&P Assessment and Plan (1) Intra-abdominal abscess: Code(s): K65.1 - Peritoneal abscess Status: Acute (2) Pleural effusion on right: Code(s): J90 - Pleural effusion, not elsewhere classified Status: Acute (3) Cirrhosis of liver with ascites: Code(s): K74.60 - Unspecified cirrhosis of liver; R18.8 - Other ascites Status: Acute (4) Urinary tract infection: Code(s): N39.0 - Urinary tract infection, site not specified Status: Acute (5) Colon adenocarcinoma: Code(s): C18.9 - Malignant neoplasm of colon, unspecified Status: Acute (6) Iron deficiency anemia: Code(s): D50.9 - Iron deficiency anemia, unspecified Status: Acute (7) Primary biliary cholangitis: Code(s): K74.3 - Primary biliary cirrhosis Status: Acute (8) Acute hypokalemia: Code(s): E87.6 - Hypokalemia Status: Acute Plan #Weakness -multifactorial. Continues to improve. Dietary supplements ordered. -on 10/13 she has been walking independently and therapy discharged her. #Acute hypoxic respiratory failure -Likely due to pleural effusion right side and pulmonary edema. -surface echo on 10/12 demonstrating EF of 60-65% with grade 1 diastolic dysfunction, tricuspid valve regurgitation trace, pulmonary arterial systolic pressure 27 mmHg. Less likely this is due to clinical heart failure -weaned down to 1 L. Status post right-sided thoracentesis 10/11 and again today. Continue to wean O2 #Pleural effusion, right -status post thoracentesis 1 L serosanguineous fluid removal on 10/11 Pathology negative but cytology pending. RBC 21K with 2K WBC 17% neutrophils and 55% lymphocytes. Glucose normal. Protein 3.1 Gram stain preliminary growing Gram-positive cocci. Vanco started. -Lasix 40 mg IV b.i.d. and spironolactone 100 mg q.day started on 10/12 Probably exudative with Protein Pl/S barely >0.5. Pl protein >2.9. Pl chol>45 and SAAG <1.1. Hold diuretics due to soft BP CT A/P showing large pleural effusion still so thoracentesis repeated 10/15 Discussed with Pulmonary who felt the gram stain may be a contaminant. Follow closely. # postop intra-abdominal abscess CT scan on admission showing 6.2cm abscess right pericolic gutter with moderate volume of ascites -status post CT-guided abscess catheter placement on 10/12/2023. Initially 10 mL of purulent fluid drained. Culture growing Clostridium perfinges Continue Vanco, Cefepime and Flagyl. Surgery to manage the 2 drains placed. Surgery felt patient could be discharged. #UTI UCx growing pansensitive EColi. Continue IV abx #acute hypokalemia Treated. She is now on scheduled potassium replacement. #Colonic adenocarcinoma -status post laparoscopic right colectomy on 09/03/2023. Pathology revealing adenocarcinoma with 40 lymph nodes negative for metastasis -has follow-up on November 03 with Oncology. #Primary biliary cholangitis -has follow-up pending with tower control operator at [facility]. Continue to monitor liver enzymes. -was taking 1000 mg ursodiol daily. Due to it causing nausea, she decreased it to 500 mg daily. We should try to increase after treatment of other acute issues. #Cirrhosis with ascites -status post albumin 50 g IV x1. -furosemide and spironolactone started but now held for soft BP Still with the lower extremity edema. Albumin 2.1 Scheduled albumin IV and Lasix as tolerated Continue intake/output daily weights and low-sodium diet. #Iron deficiency anemia -her baseline appears to be in the 9's. She is stable in the 7-8 range. Stool occult negative -continue ferrous sulfate. Continue to monitor closely #gastritis -continue home dose Protonix #Hypothyroidism -continue levothyroxine DVT prophylaxis: SCDs only. Doppler negative on 10/10 Code Status: full code Subjective Date/time seen: 10/15/23 14:55 Interval history: 63yo female with colonic adenocarc
[2023-10-15] MEDS: FUROSEMIDE INJ 40 MG/4 ML VIAL 20 MG IV PUSH (17:01)
[2023-10-15] MEDS: ALBUMIN HUMAN 25% 25 GM/100 ML 100 ML IVPB ×2 (17:32→23:42)
[2023-10-15 21:06] LABS: Vancomycin Trough 15.6 ug/mL (10.0-20.0)
[2023-10-16] VITALS (12 sets, daily range): BP systolic 103–122; BP diastolic 44–60; PULSE 93–105; RESP 12–20; TEMP 36.6–37.1; O2SAT 92–100
[2023-10-16] MEDS: metroNIDAZOLE 500 MG/ISO 100ML 500 MG/100 ML BAG 100 MG IVPB (05:04)
[2023-10-16] MEDS: LEVOTHYROXINE SODIUM 50 MCG TABLET PO (05:05)
[2023-10-16] MEDS: SALINE LOCK FLUSH 10 ML IV PUSH (05:05)
[2023-10-16 05:22] LABS: Basophils Absolute Auto 0.1 K/mm3 (0.0-0.1); Eosinophils Absolute Auto 0.5 K/mm3 (0-0.3); Hematocrit 25.3 % (37.0-47.0); Hemoglobin 7.6 g/dL (12.0-15.0); Immature Granulocyte Absolute 0.06 K/mm3 (0.00-0.031); Lymphocytes Absolute Auto 1.31 K/mm3 (0.9-3.2); Lymphocytes Percent Auto 22.4 % (18.3-44.2); Mean Corpuscular Hemoglobin 27.3 pg (26-34); Mean Platelet Volume 8.5 fl (7.4-10.4); Monocytes Absolute Auto 0.5 K/mm3 (0.1-0.6); Monocytes Percent Auto 8.2 % (2.6-8.5); Neutrophils Absolute Auto 3.5 K/mm3 (1.3-6.7); Neutrophils Percent Auto 59.4 % (45.5-73.1); Platelet Count Result 281 k/mm3 (150-375); Red Blood Count 2.78 M/mm3 (4.2-5.4); Red Cell Distribution Width 17.6 % (11.5-14.5); White Blood Count 5.9 K/mm3 (4.5-10.0)
[2023-10-16 05:35] LABS: Alanine Aminotransferase 7 U/L (6-35); Albumin Level 2.5 g/dL (3.5-5.1); Alkaline Phosphatase 107 U/L (38-126); Anion Gap 1 mmol/L (8-16); Aspartate Amino Transferase 15 U/L (14-36); Bilirubin,Total 1.2 mg/dL (0.2-1.3); Blood Urea Nitrogen 7 mg/dL (7-17); Calcium 7.9 mg/dL (8.4-10.2); Carbon Dioxide 25 mmol/L (22-30); Chloride 107 mmol/L (98-107); Estimated CRCL calculation 76 ml/min; Estimated Glomerular Filt Rate > 60; Glucose 95 mg/dL (65-110); Magnesium 1.8 mg/dL (1.6-2.3); Phosphorus 2.7 mg/dL (2.5-4.5); Potassium 3.4 mmol/L (3.4-5.0); Sodium 133 mmol/L (137-145)
[2023-10-16] MEDS: ALBUMIN HUMAN 25% 25 GM/100 ML 100 ML IVPB ×2 (06:18→13:34)
--- NOTE | 2023-10-16 09:28 | PM.PNPUL ---
Progress Note: A&P Assessment and Plan (1) Pleural effusion on right: Code(s): J90 - Pleural effusion, not elsewhere classified Status: Acute Assessment and Plan: A 63-year-old female patient, who recently underwent a colectomy due to colon adenocarcinoma, was readmitted to the hospital due to generalized weakness and shortness of breath. She has now been diagnosed with an abdominal abscess. Her treatment included tube drainage and antibiotics, in response to which she appears to be improving, as indicated by her latest abdominal CT scan. The abdominal fluid culture revealed the presence of Clostridium perfringens. Her pleural effusion is evidently related to the abdominal condition. Importantly, there were no signs of pleural fluid in the chest imaging studies conducted before her abdominal surgery in early August this year. Unfortunately, there were no chest imaging studies available from the perioperative period last month. Thoracentesis did not reveal any characteristics consistent with empyema. The neutrophil count was not elevated, and the pleural fluid glucose level was not low. LDH was not evaluated. There was growth of some Gram-positive cocci in the anaerobic bottle of the pleural fluid, but final pleural fluid culture report is negative. The patient's case was reviewed with the hospitalist. The patient is ready for discharge from a respiratory viewpoint. However, due to a history of liver cirrhosis and recent treatment for an abdominal abscess, there's a risk of fluid build-up in the chest cavity. No signs of empyema were detected. The patient is scheduled for follow-up appointments with the surgeon and other specialists in the coming weeks. We will now conclude our involvement, but please feel free to call if you have any questions. (2) Colon adenocarcinoma: Code(s): C18.9 - Malignant neoplasm of colon, unspecified Status: Acute (3) Primary biliary cholangitis: Code(s): K74.3 - Primary biliary cirrhosis Status: Acute (4) Intra-abdominal abscess: Code(s): K65.1 - Peritoneal abscess Status: Acute (5) Adenocarcinoma: Code(s): C80.1 - Malignant (primary) neoplasm, unspecified Status: Acute Subjective Date/time seen: 10/16/23 09:28 Interval history: Patient doing better this a.m.. No shortness of breath cough fever chills or chest pain. Underwent repeat thoracentesis last p.m. pleural fluid culture negative Review of Systems Review of Systems: All systems reviewed & are unremarkable except as noted in HPI and below (HPI and below) Exam Narrative: GENERAL APPEARANCE: Well developed, well nourished, alert and cooperative, and appears to be in no acute distress while on supplemental oxygen via nasal cannula SKIN: Inspection of the skin reveals no rashes, ulcerations or petechiae. HEENT: Sclerae anicteric and conjunctivae pink and moist. Extraocular movements were intact and pupils were equal, round, and reactive to light. The oral mucosa, hard and soft palate, tongue and posterior pharynx were normal. NECK: Supple. There was no thyroid enlargement, and no tenderness, or masses were felt. CHEST: Normal AP diameter and normal contour without any kyphoscoliosis. LUNGS: Dullness to percussion decreased breath sounds at right base posteriorly, no wheezing CARDIAC: There was a regular rate and rhythm without any murmurs. ABDOMEN: Soft and nontender with normal bowel sounds. Drainage catheter in place. There was no organomegaly. LYMPH NODES: No lymphadenopathy was appreciated in the neck. EXTREMITIES: No cyanosis, clubbing. Trace pedal edema NEUROLOGIC: Alert and oriented x 3. Normal affect. Objective Data Vital Signs Vital Signs: Vital Signs - 24 hr 10/15/23 10:00 10/15/23 12:00 10/15/23 12:40 Temperature 36.4 C L Pulse Rate 98 98 Respiratory Rate 26 H Blood Pressure 101/49 L 101/49 L Pulse Oximetry 92 Oxygen Delivery Oxygen Flow Rat
[2023-10-16] MEDS: CEFEPIME 2 GM/NS 50 ML 2 GM/50 ML BAG IVPB (09:48)
[2023-10-16] MEDS: VANCOMYCIN 1,000 MG/NS 250 ML 1,000 MG/250 ML BAG 250 MG IVPB (09:48)
[2023-10-16] MEDS: POTASSIUM CHLORIDE 20 MEQ ER TABLET 40 MEQ PO (09:50)
[2023-10-16] MEDS: PANTOPRAZOLE 40 MG TABLET PO (09:51)
[2023-10-16] MEDS: ESCITALOPRAM OXALATE 10 MG TABLET 20 MG PO (09:51)
[2023-10-16] MEDS: FERROUS SULFATE 325 MG TABLET DR PO (09:51)
[2023-10-16] MEDS: FUROSEMIDE INJ 40 MG/4 ML VIAL IV PUSH (11:02)
--- NOTE | 2023-10-16 11:19 | PCNFU ---
Nutrition Follow-Up Complete: Suboptimal po intake related to reduced appetite as evidenced by pt report PO intake greater than 50% of meals and supplements - Goal is being met. Continue with current goal Goal: Pt current nutrition is Heart healthy diet. Fluid restriction 2000 ml/day. Ensure Clear BID for additional 240 kcal and 8 g protein each. Nutrition recommendation: Continue with current nutrition care plan and orders. Agree with orders Last recorded weight is 70.4 kg. Bowel Motility: +1 BM 10/13/23 Labs Reviewed: Hgb 7.6, Hct 25.3, Alb 2.5, Na 133, Cre 0.6 Meds Noted: Lasix, protonix Skin: Surgical Additional Notes: Tolerating diet, intakes improving to 50-100%. Some intake of Ensure Enlive noted. Continue current orders. Monitor intake, wt, labs. Follow up in 5 days.
--- NOTE | 2023-10-16 12:57 | PM.PNGS ---
Progress Note: A&P Assessment and Plan (1) Intra-abdominal abscess: Code(s): K65.1 - Peritoneal abscess Status: Acute Assessment and Plan: exam benign, cont drains and abx, ok to dc home from surgical standpoint, repeat CT next week Subjective Subjective Date/Time Seen: 10/16/23 12:57 Interval history: feels good, had thoracentesis last night Review of Systems Review of Systems: All systems reviewed & are unremarkable except as noted in HPI and below Exam Const: General: cooperative, comfortable and no acute distress Resp: Auscultation: clear to auscultation bilaterally Cardio: Rate: regular rate Rhythm: regular rhythm GI: Inspection: normal to inspection and non-distended GI Palp: No abdominal tenderness and Yes Soft to palpation Other: drains c minimal drainage Objective Data Vital Signs Vital Signs: Vital Signs - 24 hr 10/15/23 13:05 10/15/23 13:06 10/15/23 14:00 Temperature Pulse Rate 97 Respiratory Rate Blood Pressure 98/51 L 93/56 L Pulse Oximetry Oxygen Delivery Oxygen Flow Rate 10/15/23 15:28 10/15/23 16:00 10/15/23 18:00 Temperature 36.6 C Pulse Rate 101 H 103 H 108 H Respiratory Rate 20 Blood Pressure 108/53 L Pulse Oximetry 96 Oxygen Delivery Oxygen Flow Rate 10/15/23 20:02 10/15/23 20:00 10/15/23 21:15 Temperature 36.8 C Pulse Rate 110 H 110 H 110 H Respiratory Rate 20 20 Blood Pressure 111/47 L Pulse Oximetry 95 95 Oxygen Delivery Nasal Cannula Oxygen Flow Rate 2 10/15/23 22:00 10/16/23 00:00 10/16/23 00:00 Temperature Pulse Rate 104 H 104 H 98 Respiratory Rate 20 Blood Pressure Pulse Oximetry 95 Oxygen Delivery Nasal Cannula Oxygen Flow Rate 2 10/16/23 00:11 10/16/23 02:00 10/16/23 04:00 Temperature 36.6 C Pulse Rate 93 97 97 Respiratory Rate 20 20 Blood Pressure 106/48 L Pulse Oximetry 100 100 Oxygen Delivery Nasal Cannula Oxygen Flow Rate 2 10/16/23 04:00 10/16/23 05:20 10/16/23 06:00 Temperature 36.6 C Pulse Rate 98 99 98 Respiratory Rate 20 Blood Pressure 122/59 L Pulse Oximetry 94 Oxygen Delivery Oxygen Flow Rate 10/16/23 08:00 10/16/23 08:00 10/16/23 09:20 Temperature 37.1 C 36.9 C Pulse Rate 94 93 Respiratory Rate 20 18 Blood Pressure 107/57 L 103/56 L 110/60 Pulse Oximetry 92 93 Oxygen Delivery Oxygen Flow Rate 10/16/23 09:20 10/16/23 08:00 10/16/23 12:00 Temperature 37.0 C Pulse Rate 94 Respiratory Rate 14 Blood Pressure 104/55 L 112/56 L Pulse Oximetry 95 Oxygen Delivery Room Air Oxygen Flow Rate Intake/Output Intake/Output: Intake & Output 10/13/23 10/14/23 10/15/23 10/16/23 23:59 23:59 23:59 23:59 Intake Total 1550 2090 1925 1200 Output Total 2851 1410 500 Balance -1301 2090 515 700 Meds/Results Medications: Active Medications Generic Name Dose Route Start Last Admin Trade Name Freq PRN Reason Stop Dose Admin Escitalopram Oxalate 20 mg 10/11/23 09:00 10/16/23 09:51 Escitalopram Oxalate 10 Mg Tablet PO 20 mg DAILY REYMUNDO Administration Ferrous Sulfate 325 mg 10/10/23 17:40 10/16/23 09:51 Ferrous Sulfate [address] PO 325 mg BID REYMUNDO Administration Furosemide 40 mg 10/16/23 09:00 10/16/23 11:02 Furosemide Inj 40 Mg/4 Ml Vial IV PUSH 40 mg DAILY REYMUNDO Administration Cefepime HCl 2 gm in 50 mls @ 100 mls/hr 10/12/23 15:00 10/16/23 10:48 Maxipime 2 Gm/Ns 50 Ml IVPB Infused Q8H REYMUNDO Infusion Metronidazole 500 mg in 100 mls @ 100 mls/hr 10/12/23 22:00 10/16/23 06:18 Flagyl 500 Mg/Iso Soln 100 Ml IVPB Infused Q8HR REYMUNDO Infusion Vancomycin HCl 1,000 mg in 250 mls @ 250 mls/hr 10/14/23 09:00 10/16/23 10:48 Vancomycin 1,000 Mg/Ns 250 Ml IVPB Infused Q12HR REYMUNDO Infusion Albumin Human 100 mls @ 60 mls/hr 10/15/23 18:00 10/16/23 08:00 Albutein IVPB 10/16/23 13:39 Infused Q6HR REYMUNDO Infusion Lev
--- NOTE | 2023-10-16 14:16 | PM.DS ---
DS: Admitting Diagnosis Discharge Date 10/16/23 Admitting Diagnosis Weakness DS: Discharge Diagnosis Discharge Diagnosis (1) Intra-abdominal abscess: Code(s): K65.1 - Peritoneal abscess Status: Acute (2) Pleural effusion on right: Code(s): J90 - Pleural effusion, not elsewhere classified Status: Acute (3) Cirrhosis of liver with ascites: Code(s): K74.60 - Unspecified cirrhosis of liver; R18.8 - Other ascites Status: Acute (4) Urinary tract infection: Code(s): N39.0 - Urinary tract infection, site not specified Status: Acute (5) Colon adenocarcinoma: Code(s): C18.9 - Malignant neoplasm of colon, unspecified Status: Acute (6) Iron deficiency anemia: Code(s): D50.9 - Iron deficiency anemia, unspecified Status: Acute (7) Primary biliary cholangitis: Code(s): K74.3 - Primary biliary cirrhosis Status: Acute (8) Acute hypokalemia: Code(s): E87.6 - Hypokalemia Status: Acute DS: Summary Hospital Course Reason for hospitalization: 63yo female with colonic adenocarcinoma, primary biliary cholangitis, cirrhosis, hypothyroidism, iron deficiency anemia, and history of stroke with no residual deficits here for weakness.?Please see H&P for details. Hospital Course: Patient presented with weakness. CT scan on admission showing 6.2cm abscess right pericolic gutter with moderate volume of ascites. She underwent CT-guided abscess catheter placement on 10/12/2023.? Initially 10 mL of purulent fluid drained.?Culture growing Clostridium perfinges. Treated with Vanco, Cefepime and Flagyl.? Surgery consulted and managed the [address] scan also showing large right pleural effusion status post thoracentesis 1 L serosanguineous fluid removal on 10/11. Pathology negative but cytology pending. RBC 21K with 2K WBC 17% neutrophils and 55% lymphocytes.?Glucose normal. Protein 3.1. Gram stain showing rare gram-positive cocci but culture negative. Probably?exudative?with Protein Pl/S barely >0.5. Pl protein >2.9. Pl chol>45 and SAAG <1.1. Lasix and spironolactone started but held due to soft BP. Was having pedal edema and doppler negative. Albumin low so started on albumin with lasix. She had benefit of decreasing pedal edema. Repeat CT A/P showing large pleural effusion still so thoracentesis repeated 10/15. Post-CXR showing tiny residual right pleural effusion. Discussed with Pulmonary who felt the gram stain may be a contaminant. UCx growing pansensitive EColi. [place] the weakness was multifactorial.?She has been walking independently and therapy discharged her. She had acute hypoxic respiratory failure likely due to pleural effusion right side and pulmonary edema. Surface echo on 10/12 demonstrating EF of 60-65% with grade 1 diastolic dysfunction, tricuspid valve regurgitation trace, pulmonary arterial systolic pressure 27 mmHg.? Less likely her effusion is due to abdominal infection and not due to clinical heart failure. Weaned off oxygen. Patient with colonic adenocarcinoma status post laparoscopic right colectomy on 09/03/2023.?Pathology revealing adenocarcinoma with 40 lymph nodes negative for metastasis. She has follow-up on November 03 with Oncology. Patient with primary biliary cholangitis and has follow-up pending with signaler at [facility].?She was taking 1000 mg ursodiol daily but cut this back to 500mg due to it causing nausea. She was advised to increase her dose after treatment as she toelrates. She did well. She feels ready for discahrge. She overall did well and was able to be discharged home on 10/16/23 Status at Discharge Cognitive/behavioral status at discharge: stable Time Spent with Patient Time attestation: Total time spent providing and/or coordinating discharge services: 36 minutes Time spent: Greater than 30 minutes Exam Narrative: AF 98.6 112/56 94 14 95% RA Gen - NARD Chest - right base inspiratory
--- NOTE | 2023-10-20 11:31 | PC.NURSE ---
Aerobic cx is negative. Anaerobic cx shows Clostridium Perfringes. Body fuid cx is negative Path cytology is benign. Dr. Mohr aware of findings.
== END 2023-10-16 16:31 | disposition home or self-care (01) | DRG 862 ==
LOC: ANHED 09:59 → ANHIMU 14:33
PROVIDERS: General Practice; Physician Assistant; Admitting Provider Internal Medicine; Emergency Provider Physician Assistant; PCP Physician Assistant; Visit Provider Internal Medicine
DX: K68.11 Postprocedural retroperitoneal abscess (principal); J96.01 Acute respiratory failure with hypoxia; J90 Pleural effusion, not elsewhere classified; C18.9 Malignant neoplasm of colon, unspecified; N39.0 Urinary tract infection, site not specified; R18.8 Other ascites; B96.7 Clostridium perfringens [C. perfringens] as the cause of diseases classified elsewhere; B96.20 Unspecified Escherichia coli [E. coli] as the cause of diseases classified elsewhere; D50.9 Iron deficiency anemia, unspecified; E03.9 Hypothyroidism, unspecified; E87.6 Hypokalemia; F41.8 Other specified anxiety disorders; K74.3 Primary biliary cirrhosis; K74.60 Unspecified cirrhosis of liver; Z90.49 Acquired absence of other specified parts of digestive tract; Z90.710 Acquired absence of both cervix and uterus; Z20.822 Contact with and (suspected) exposure to COVID-19; Z86.73 Personal history of transient ischemic attack (TIA), and cerebral infarction without residual deficits
CPT/HCPCS: 32555; 36415; 36569; 71045; 71046; 71275; 74176; 74177; 75989; 80048; 80053; 80202; 81001; 82042; 82274; 82945; 83605; 83615; 83690; 83735; 83880; 83986; 84100; 84145; 84157; 84311; 85025; 85027; 85610; 85730; 86140; 87040; 87070; 87075; 87086; 87186; 87205; 87637; 88108; 88305; 89051; 93005; 93306; 93970; 96365; 96366; 96367; 96368; 97110; 97161; 97166; 97530; 97535; 99285; A9270; C1729; C1751; C1769; G0378; J0692; J0696; J1836; J1940; J2543; J3370; J3480; J7040; P9047; Q9967

== ENCOUNTER → 2023-10-22 08:58 | Outpatient (CLI) | payer OTHER, SELFPAY ==
--- NOTE | ~2023-10-22 | CT_ITS ---
EXAMINATION: CT abdomen pelvis w con INDICATION: Peritoneal abscess TECHNIQUE: Computed tomographic images of the abdomen and pelvis were obtained after the administrati on of 100 cc of Omnipaque 350 intravenous contrast. The dose-length product (DLP) was 876.45 mGy-cm. Automated exposure control and iterative reconstruction technique were employed. COMPARISON: 10/14/2023 FINDINGS: There is a small right pleural effusion with mild passive dependent atelectasis on the righ t. There is mild atelectasis of the left lung base as well. The heart size is normal. The liver, sple en, pancreas, and left adrenal gland are normal. A 12 mm mass of the right adrenal gland likely repre sents an adenoma in the absence of known malignancy. The kidneys are unremarkable. A percutaneous benito in is present in the stable abscess of the right pericolic gutter. Although limited by the absence of intravenous contrast, there appears to be slight interval decrease in size of a right pelvic abscess with indwelling drainage catheter. There has also been a slight decrease in volume of intraperitonea l fluid. There are no dilated loops of bowel. A duplicated inferior vena cava is noted. There are chr onic burst fractures of T12 and L1. There is a chronic compression fracture of T11. IMPRESSION: 1. Stable abscess of the right pericolic gutter with indwelling percutaneous drain. 2. Slight decrease in size of a right pelvic abscess with indwelling drainage catheter. 3. Persistent but decreased abdominal ascites. Reviewed, dictated and finalized at location L. LAY DIRECTOR IMPRESSION: 1. Stable abscess of the right pericolic gutter with indwelling percutaneous dr kush. 2. Slight decrease in size of a right pelvic abscess with indwelling drainage c geovanny. 3. Persistent but decreased abdominal ascites.
== END ==
PROVIDERS: PCP Physician Assistant; Visit Provider Surgery
DX: K65.1 Peritoneal abscess (principal)
CPT/HCPCS: 74177; Q9967

== ENCOUNTER 2023-11-09 15:37 | Outpatient (CLI) | payer OTHER, SELFPAY ==
[2023-11-09 15:49] LABS: Basophils Absolute Auto 0.1 K/mm3 (0.0-0.1); Basophils Percent Auto 1.1 % (0.2-1.2); Eosinophils Absolute Auto 0.3 K/mm3 (0-0.3); Eosinophils Percent Auto 5.5 % (0-4.4); Hemoglobin 10.2 g/dL (12.0-15.0); Immature Granulocyte Absolute 0.02 K/mm3 (0.00-0.031); Immature Granulocyte Percent A 0.4 % (0-0.5); Lymphocytes Absolute Auto 1.29 K/mm3 (0.9-3.2); Lymphocytes Percent Auto 28.5 % (18.3-44.2); Mean Corpuscular HGB Conc 30.9 g/dl (32-36); Mean Corpuscular Hemoglobin 28.7 pg (26-34); Monocytes Absolute Auto 0.4 K/mm3 (0.1-0.6); Monocytes Percent Auto 9.5 % (2.6-8.5); Neutrophils Absolute Auto 2.5 K/mm3 (1.3-6.7); Platelet Count Result 273 k/mm3 (150-375); Red Blood Count 3.55 M/mm3 (4.2-5.4); Red Cell Distribution Width 17.7 % (11.5-14.5); White Blood Count 4.5 K/mm3 (4.5-10.0)
[2023-11-09 16:25] LABS: Iron 83 ug/dL (37-170)
[2023-11-09 16:30] LABS: Alanine Aminotransferase 15 U/L (6-35); Albumin Level 3.5 g/dL (3.5-5.1); Alkaline Phosphatase 162 U/L (38-126); Anion Gap 5 mmol/L (8-16); Aspartate Amino Transferase 28 U/L (14-36); Bilirubin,Total 0.7 mg/dL (0.2-1.3); Blood Urea Nitrogen 12 mg/dL (7-17); Calcium 9.3 mg/dL (8.4-10.2); Carbon Dioxide 27 mmol/L (22-30); Chloride 108 mmol/L (98-107); Estimated Glomerular Filt Rate > 60; Glucose 102 mg/dL (65-110); Potassium 3.5 mmol/L (3.4-5.0); Sodium 140 mmol/L (137-145)
[2023-11-09 16:37] LABS: Percent Iron Saturation 25 % (20-50)
[2023-11-09 16:54] LABS: Carcinoembryonic Antigen 4.5 ng/mL (0.0-3.0)
[2023-11-09 17:29] LABS: Folic Acid 6.6 ng/mL (2.76->20)
== END 2023-11-09 15:38 | disposition home or self-care (01) ==
LOC: ANHLAB 15:38
PROVIDERS: PCP Physician Assistant; Visit Provider Internal Medicine Hematology & Oncology
DX: C18.9 Malignant neoplasm of colon, unspecified (principal); D64.9 Anemia, unspecified
CPT/HCPCS: 36415; 80053; 82378; 82607; 82728; 82746; 83540; 83550; 85025

== ENCOUNTER 2024-02-22 08:29 | Outpatient (CLI) | payer OTHER, SELFPAY ==
--- NOTE | ~2024-02-22 | CT_ITS ---
EXAMINATION: CT abdomen pelvis w con DATE: 02/22/2024 09:15 INDICATION: Malignant neoplasm of the colon TECHNIQUE: Computed tomography (CT) of the abdomen and pelvis was performed with 100 mL Omnipaque-350 intravenous contrast. Automated exposure control and iterative reconstruction technique were employe d. The dose-length product was 770.39 mGy-cm. COMPARISON: 10/22/2023 FINDINGS: Mild atelectasis in the bilateral lower lobes. Heart size is normal. Atherosclerotic coronary artery calcific location. No pericardial or pleural effusion. Gallbladder is not visualized and likely surgi yayo absent. Pancreas, bilateral adrenal glands and right kidney are normal. There is some cortical scarring at the upper pole of the left kidney. Subsequent nodular liver surface suspicious for cirrho sis. Splenomegaly measuring 4.5 cm craniocaudal length and 14.5 x 9.8 cm in maximal transaxial dimens ions. This could be related to portal venous hypertension with inferior mesenteric vein and multiple prominent perirectal collaterals extending to the bilateral internal iliac veins. 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 S tatus post right hemicolectomy with ileocolic anastomosis in the right abdomen. No bowel obstruction. The uterus and bilateral ovaries are not identified and have likely been surgically resected. Partia lly decompressed bladder is normal. Minimal amount of perihepatic ascites. No abscess or free intrape ritoneal gas. The prior small abscess is at the right paracolic gutter and right pelvis have resolved with removal of the prior percutaneous drains. No pathologically enlarged abdominal or pelvic lympha denopathy. Chronic mild T11 compression fracture with 20% anterior vertebral body height loss and T12 burst fracture with 60% anterior vertebral body height loss and 4 mm retropulsion resulting in mild to moderate central canal stenosis at this level. IMPRESSION: 1. Status post right hemicolectomy with ileocolic anastomosis for reported colon cancer. No evident r esidual/locally recurrent or metastatic disease. 2. Cirrhosis with secondary portal venous hypertension as evidence by splenomegaly and paraesophageal and perirectal portosystemic collaterals. 3. Minimal perihepatic ascites. Interval resolution of the previously drained abscesses at the right paracolic gutter and right pelvis with removal of the percutaneous drains. 4. Incidental partially duplicated inferior vena cava. Reviewed, dictated and finalized at location B. IMPRESSION: 1. Status post right hemicolectomy with ileocolic anastomosis for reported colo n cancer. No evident residual/locally recurrent or metastatic disease. 2. Cirrhosis with secondary portal venous hypertension as evidence by splenomeg sybil and paraesophageal and perirectal portosystemic collaterals. 3. Minimal perihepatic ascites. Interval resolution of the previously drained a bscesses at the right paracolic gutter and right pelvis with removal of the per cutaneous drains. 4. Incidental partially duplicated inferior vena cava.
[2024-02-22 09:06] LABS: Estimated Glomerular Filt Rate > 60
[2024-02-22 10:40] LABS: Basophils Percent Auto 0.7 % (0.2-1.2); Eosinophils Absolute Auto 0.2 K/mm3 (0-0.3); Eosinophils Percent Auto 4.2 % (0-4.4); Hematocrit 39.1 % (37.0-47.0); Immature Granulocyte Absolute 0.01 K/mm3 (0.00-0.031); Immature Granulocyte Percent A 0.2 % (0-0.5); Lymphocytes Absolute Auto 1.22 K/mm3 (0.9-3.2); Lymphocytes Percent Auto 28.2 % (18.3-44.2); Mean Corpuscular HGB Conc 33.2 g/dl (32-36); Mean Corpuscular Hemoglobin 30.6 pg (26-34); Mean Platelet Volume 10.7 fl (7.4-10.4); Monocytes Absolute Auto 0.3 K/mm3 (0.1-0.6); Monocytes Percent Auto 7.2 % (2.6-8.5); Neutrophils Absolute Auto 2.6 K/mm3 (1.3-6.7); Neutrophils Percent Auto 59.5 % (45.5-73.1); Platelet Count Result 136 k/mm3 (150-375); Red Blood Count 4.25 M/mm3 (4.2-5.4); White Blood Count 4.3 K/mm3 (4.5-10.0)
[2024-02-22 10:48] LABS: Alanine Aminotransferase 30 U/L (6-35); Albumin Level 3.9 g/dL (3.5-5.1); Alkaline Phosphatase 158 U/L (38-126); Anion Gap 7 mmol/L (4-12); Aspartate Amino Transferase 33 U/L (14-36); Bilirubin,Total 1.6 mg/dL (0.2-1.3); Blood Urea Nitrogen 15 mg/dL (7-17); Calcium 8.7 mg/dL (8.4-10.2); Carbon Dioxide 24 mmol/L (22-30); Chloride 108 mmol/L (98-107); Estimated Glomerular Filt Rate > 60; Glucose 84 mg/dL (65-110); Iron 175 ug/dL (37-170); Potassium 3.7 mmol/L (3.4-5.0); Sodium 139 mmol/L (137-145)
[2024-02-22 11:02] LABS: Percent Iron Saturation 49 % (20-50)
[2024-02-22 11:04] LABS: Free T4 Free Thyroxine 0.95 ng/mL (0.78-2.19)
[2024-02-22 11:17] LABS: Carcinoembryonic Antigen 2.8 ng/mL (0.0-3.0)
== END 2024-02-22 08:30 | disposition home or self-care (01) ==
LOC: ANHIMG 08:46
PROVIDERS: PCP Physician Assistant; Visit Provider Internal Medicine Hematology & Oncology
DX: E03.9 Hypothyroidism, unspecified (principal); C18.9 Malignant neoplasm of colon, unspecified; D64.9 Anemia, unspecified; K74.60 Unspecified cirrhosis of liver; R18.8 Other ascites; Q26.8 Other congenital malformations of great veins; Z90.49 Acquired absence of other specified parts of digestive tract
CPT/HCPCS: 36415; 74177; 80053; 82378; 82728; 83540; 83550; 84439; 84443; 85025; 85055; Q9967

== ENCOUNTER 2024-06-20 12:45 | Outpatient (CLI) | payer OTHER, SELFPAY ==
[2024-06-20 13:41] LABS: Basophils Percent Auto 0.5 % (0.2-1.2); Eosinophils Absolute Auto 0.3 K/mm3 (0-0.3); Eosinophils Percent Auto 6.2 % (0-4.4); Hemoglobin 13.6 g/dL (12.0-15.0); Immature Granulocyte Absolute 0.01 K/mm3 (0.00-0.031); Immature Granulocyte Percent A 0.2 % (0-0.5); Immature Platelet Fraction Pct 5.4 % (0.9-11.2); Lymphocytes Absolute Auto 1.53 K/mm3 (0.9-3.2); Lymphocytes Percent Auto 36.5 % (18.3-44.2); Mean Corpuscular HGB Conc 34.9 g/dl (32-36); Mean Corpuscular Hemoglobin 31.6 pg (26-34); Mean Corpuscular Volume 90.7 fl (80-100); Mean Platelet Volume 10.9 fl (7.4-10.4); Monocytes Absolute Auto 0.3 K/mm3 (0.1-0.6); Monocytes Percent Auto 8.1 % (2.6-8.5); Neutrophils Percent Auto 48.5 % (45.5-73.1); Platelet Count Result 114 k/mm3 (150-375); Red Cell Distribution Width 13.9 % (11.5-14.5); White Blood Count 4.2 K/mm3 (4.5-10.0)
[2024-06-20 13:49] LABS: Anion Gap 7 mmol/L (4-12); Blood Urea Nitrogen 19 mg/dL (7-17); Calcium 8.9 mg/dL (8.4-10.2); Carbon Dioxide 23 mmol/L (22-30); Chloride 108 mmol/L (98-107); Estimated Glomerular Filt Rate > 60; Glucose 84 mg/dL (65-110); Potassium 3.8 mmol/L (3.4-5.0); Sodium 138 mmol/L (137-145)
[2024-06-20 13:51] LABS: INR 1.3; Prothrombin Time 16.6 Seconds (11.1-14.7)
[2024-06-20 14:15] LABS: Iron 83 ug/dL (37-170)
[2024-06-20 14:20] LABS: Carcinoembryonic Antigen 3.2 ng/mL (0.0-3.0)
[2024-06-20 14:25] LABS: Percent Iron Saturation 24 % (20-50)
[2024-06-20 14:55] LABS: Folic Acid 10.1 ng/mL (2.76->20)
== END 2024-06-20 12:46 | disposition home or self-care (01) ==
LOC: ANHLAB 12:57
PROVIDERS: PCP Internal Medicine; Visit Provider Internal Medicine Hematology & Oncology
DX: K74.3 Primary biliary cirrhosis (principal); R61 Generalized hyperhidrosis; D64.9 Anemia, unspecified; C18.9 Malignant neoplasm of colon, unspecified
CPT/HCPCS: 36415; 80048; 82248; 82378; 82607; 82728; 82746; 83540; 83550; 85025; 85055; 85610

== ENCOUNTER 2024-09-26 07:24 | Outpatient (CLI) | payer MEDICARE, SELFPAY ==
--- NOTE | ~2024-09-26 | CT_ITS ---
Non-contrast CT scan of the Abdomen and Pelvis Clinical indication: Colon cancer Technique: 2.5 mm axial scans were obtained through the abdomen and pelvis without intravenous or or al contrast. Dose reduction technique was used on this scan by utilizing automated exposure control a nd iterative reconstruction technique. The dose-length product (DLP) was 767.06 mGy-cm. COMPARISON: 02/22/2024 Findings: Images through the lung bases reveal no abnormalities. There is no evidence of renal or ureteral calculi. The kidneys and the ureters are nondilated. There is a mild diffuse nodular contour of liver. No focal hepatic mass evident on noncontrast exam. Spleen is borderline enlarged. The pancreas, gallbladder, and adrenals appear normal. There is no ao rtic aneurysm. There is no evidence of bowel obstruction. Status post partial right colectomy. Images through the pelvis were performed. There is no evidence of ascites or lymphadenopathy. Urinary bladder unremarkable. No pelvic mass evident. No ascites. Stable T11 and T12 compression fractures. Impression: No evidence for active malignancy or metastatic disease. Cirrhotic change of the liver with borderline splenomegaly. Reviewed, dictated and finalized at location . ING EQUIPMENT REPAIRER SUPERVISOR Impression: No evidence for active malignancy or metastatic disease. Cirrhotic change of the liver with borderline splenomegaly.
== END 2024-09-26 07:25 | disposition home or self-care (01) ==
PROVIDERS: PCP Internal Medicine; Visit Provider Internal Medicine Hematology & Oncology
DX: C18.9 Malignant neoplasm of colon, unspecified (principal)
CPT/HCPCS: 74176

== ENCOUNTER 2024-10-05 14:05 | Outpatient (CLI) | payer MEDICARE, SELFPAY ==
[2024-10-05 14:40] LABS: Basophils Percent Auto 0.6 % (0.2-1.2); Eosinophils Absolute Auto 0.2 K/mm3 (0-0.3); Eosinophils Percent Auto 2.8 % (0-4.4); Hematocrit 42.9 % (37.0-47.0); Hemoglobin 14.8 g/dL (12.0-15.0); Immature Granulocyte Absolute 0.01 K/mm3 (0.00-0.031); Immature Granulocyte Percent A 0.2 % (0-0.5); Lymphocytes Absolute Auto 1.88 K/mm3 (0.9-3.2); Lymphocytes Percent Auto 34.6 % (18.3-44.2); Mean Corpuscular HGB Conc 34.5 g/dl (32-36); Mean Corpuscular Volume 89.9 fl (80-100); Mean Platelet Volume 10.8 fl (7.4-10.4); Monocytes Absolute Auto 0.4 K/mm3 (0.1-0.6); Monocytes Percent Auto 7.4 % (2.6-8.5); Neutrophils Percent Auto 54.4 % (45.5-73.1); Platelet Count Result 158 k/mm3 (150-375); Red Blood Count 4.77 M/mm3 (4.2-5.4); Red Cell Distribution Width 13.2 % (11.5-14.5); White Blood Count 5.4 K/mm3 (4.5-10.0)
[2024-10-05 14:52] LABS: Alanine Aminotransferase 27 U/L (6-35); Albumin Level 3.9 g/dL (3.5-5.1); Alkaline Phosphatase 145 U/L (38-126); Anion Gap 9 mmol/L (4-12); Aspartate Amino Transferase 31 U/L (14-36); Bilirubin,Total 2.1 mg/dL (0.2-1.3); Blood Urea Nitrogen 17 mg/dL (7-17); Calcium 8.7 mg/dL (8.4-10.2); Carbon Dioxide 24 mmol/L (22-30); Chloride 106 mmol/L (98-107); Estimated Glomerular Filt Rate > 60; Glucose 96 mg/dL (65-110); Potassium 3.5 mmol/L (3.4-5.0); Sodium 139 mmol/L (137-145)
--- OUTSIDE RECORDS SUMMARY | 2024-10-05 15:02 | XMS_ITS | Referral Summary ---
Author Organization [facility] Local Reputation Address [address] [place] [address] Care Team Providers Care Stable Cleaner Name Role Phone Ignacio Fagan DO Primary Care Provider [phone] Source Comments [facility],non-owned Affiliates and Associated Physician Practices is amultiple site organization consisting of ambulatory clinics and hospital sitesin [place], [place], [place] and [place]. This disclosure is being madepursuant to the Care Everywhere program and may not contain all information available regarding this patient. Last updated 18.[facility]utation Allergies Active Allergy Reactions Criticality Noted Date Comments Codeine Nausea and/or Vomiting Low 04/25/2022 Medications * Be aware that medications may not be up to date on this document. Alwaysverify current medications with the patient. Medication Sig Dispensed Refills Start Date End Date Status KLS OMPERAZOLE 20 MG tablet Take 1 (one) tablet by mouth daily before breakfast 10/28/2023 Active levothyroxine (Synthroid) 50 MCG tablet Take 1 (one) tablet by mouth daily before breakfast 08/18/2023 Active escitalopram (Lexapro) 20 MG tablet 08/18/2023 Active cholestyramine (Questran) 4 g packet Take 1 (one) packet by mouth 2 times daily 60 Each 11/04/2023 Active ursodiol (Cornelius Forte) 500 MG tabletIndications:Pr imary biliary cholangitis (HCC) Take 1 (one) tablet by mouth 2 times daily with morning and evening meal 30 tablet 2 05/04/2024 Active hydrOXYzine HCl (Atarax) 10 MG tabletIndications:Pr imary biliary cholangitis (HCC) Take 1 (one) tablet by mouth 3 times daily as needed for Itching 30 tablet 2 05/04/2024 Active Social History Tobacco Use Types Packs/Day Years Used Date Smoking Tobacco: Never Smokeless Tobacco: Never Tobacco Cessation:Counseling Given: Not Answered Alcohol Use Standard Drinks/Week Comments Never 0 (1 standard drink = 0.6 oz pur e alcohol) Sex and Gender Information Value Date Recorded Sex Assigned at Not on file Gender Identity Not on file Sexual Orientation Not on file Last Filed Vital Signs Vital Sign Reading Time Taken Comments Blood Pressure 111/69 05/04/2024 12:25 PM CDT Pulse 67 05/04/2024 12:25 PM CDT Temperature 36.2 C (97.2 F) 05/04/2024 12:25 PM CDT Respiratory Rate - - Oxygen Saturation 99% 05/04/2024 12: 25 PM CDT Inhaled Oxygen Concentration - - Weight 77.5 kg (170 lb 12.8 oz) 12:25 PM CDT Height 160 cm (5' 3 ) 05/04/2024 12:25 PM CDT Body Mass Index 30.26 05/04/2024 12:25 PM CDT Plan of Treatment Upcoming Encounters Date Type Department Care Team (Late st Contact Info) Description 11/02/2024 12:30 PM STUDENT NURSE Office Visit [facility] [address] [facility], [facility] [place] [address] Tomas Fuentes MD [address] [place] [id number] Goals Goal Patient Goal Type Associated Problems Recent Progress Patient-Stated? Author Medication Management General On track( 1:04 PM CDT) Patrica Camara, RN Note: Expected end date: ongoing Interventions: Take all medications as prescribed Let your doctor know right away about any changes in your medications Make sure to request a refill of your medication at least one week prior to your last dose Procedures Procedure Name Priority Date/Time Associated Diagnosis Comments COMPREHENSIVE METABOLIC PANEL Routine 05/04/2024 1:44 PM CDT Primary biliary cholangitis (HCC) DEXA BONE DENSITY AXIAL SKELETON Routine 11/27/2023 10:30 AM CDT Primary biliary cholangitis (HCC) HEPATITIS C AB SCREEN RFLX NAAT QUANT STAT 11/04/2023 3:25 PM STUDENT NURSE Primary biliary cholangitis (HCC) from Last 3 Months or Most Recently Relevant to Health Maintenance Results * (ABNORMAL) COMPREHENSIVE METABOLIC PANEL (05/04/2024 1:44 PM CDT) BUN 17 7 - 26 mg/dL 05/04/2024 2:51 PM [facility] Creatinine 0.63 0.56 - 0.96 mg/dL 05/04/2024 2:51 PM [facility] Sodium 143 136 - 145 mmol/L 05/04/2024 2:51 PM [facility] Potassium 3.8 3.5 - 4.5 mmol/L 05/04/2024 2:51 PM [facility] Chloride 112(H) 98 - 107 mmol/L 05/04/2024 2:51 PM [facility] CO2 25 22 - 29 mmol/L 05/04/2024 2:51 PM [facility] Glucose 78 70 - 115 mg/dL 05/04/2024 2:51 PM [facility] Calcium 9.2 8.4 - 10.2 mg/dL 05/04/2024 2:51 PM [facility] Protein Total 7.2 6.0 - 8.3 g/dL 05/04/2024 2:51 PM [facility] Albumin 3.4 3.4 - 5.0 g/dL 05/04/2024 2:51 PM [facility] Bilirubin Total 1.3(H) 0.2 - 1.2 mg/dL 05/04/2024 2:51 PM [facility] Alkaline Phosphatase 138 40 - 150 U/L 05/04/2024 2:51 PM [facility] ALT 23 5 - 55 U/L 05/04/2024 2:51 PM [facility] AST 26 5 - 34 U/L 05/04/2024 2:51 PM [facility] Anion Gap 6 6 - 16 05/04/2024 2:51 PM CDT [facility] BUN/Creatinine Ratio 27(H) 7 - 23 05/04/2024 2:51 PM CDT [facility] Osmolality Calculated 296(H) 275 - 295 mOsm/kg 05/04/2024 2:51 PM CDT [facility] Albumin/Globulin Ratio 0.9(L) 1.1 - 2.3 05/04/2024 2:51 PM CDT [facility] eGFR by CKD-EPI >90 >=90 mL/min/1.7 3 m2 05/04/2024 2:51 PM CDT [facility] Blood BLOOD SPECIMEN / Unknown Lab Venipuncture / Unknown 05/04/2024 1:44 PM CDT 05/04/2024 2:19 PM CDT Tomas Fuentes MD LAB - CHEMISTRY TRE URI[facility] Organization Address City/State/ZIP Co de Phone Number [address] [address], [facility] [phone] * BONE DENSITY AXIAL SKELETON(1OR MORE SITES)[id number] (11/27/2023 10:30 AM CDT) Anatomical Region Laterality Modality Other 11/27/2023 12:1 1 PM CDT Narrative 11/27/2023 12:54 PM CDT PROCEDURE: DEXA BONE DENSITY AXIAL SKELETON DATE/TIME OF EXAM: 11/27/2023 10:42 AM CLINICAL INFORMATION: None relevant/not provided if blank. Indication: K74.3: Primary biliary cholangitis (HCC) COMPARISON: None. LUMBAR SPINE (L1-L4): Bone mineral density (g/cm2): 0.563 Current T-score: -4.4 LEFT FEMORAL NECK: Bone mineral density (g/cm2): 0.407 Current T-score: -4.0 BONE DENSITY ASSESSMENT: WHO Category: Osteoporosis. FRAX not reported because: Some T-score for spine total, hip total, femoral neck at or below -2.5. Please see the PACS images for additional details. World Health Organization definitions of standard deviations relative to the mean T-score: Normal bone density = -1.0 and above Osteopenia = between -1.0 and -2.5 Osteoporosis = -2.5 and below > Dictated by Mary Melgar MD (Body Coverer) 11/27/2023 12:11 PM Enoc Vegas DO have personally reviewed and interpreted this examination/study. > Interpreting Provider: Enoc Saini DO on 11/27/2023 12:54 PM Procedure Note Enoc Saini DO - 11/27/2023 PROCEDURE: DEXA BONE DENSITY AXIAL SKELETON DATE/TIME OF EXAM: 11/27/2023 10:42 AM CLINICAL INFORMATION: None relevant/not provided if blank. Indication: K74.3: Primary biliary cholangitis (HCC) COMPARISON: None. LUMBAR SPINE (L1-L4): Bone mineral density (g/cm2): 0.563 Current T-score: -4.4 LEFT FEMORAL NECK: Bone mineral density (g/cm2): 0.407 Current T-score: -4.0 BONE DENSITY ASSESSMENT: WHO Category: Osteoporosis. FRAX not reported because: Some T-score for spine total, hip total, femoral neck at or below -2.5. Please see the PACS images for additional details. World Health Organization definitions of standard deviations relative to the mean T-score: Normal bone density = -1.0 and above Osteopenia = between -1.0 and -2.5 Osteoporosis = -2.5 and below > Dictated by Mary Melgar MD (Body Coverer) 11/27/2023 12:11PM Enoc Vegas DO have personally reviewed and interpreted this examination/study. > Interpreting Provider: Enoc Saini DO on 11/27/2023 12:54 PM Authorizing Provider Result Timothy Fuentes MD DEXA ORDERABLES * HEPATITIS C AB SCREEN RFLX NAAT QUANT (11/04/2023 3:25 PM STUDENT NURSE) Hepatitis C Antibody Non-react giancarlo Non-reac tive 11/04/2023 4:29 PM STUDENT NURSE [facility] Comment:Hepatitis C Antibody screen indicates no serologic evidence of past or current infection with Hepatitis C Virus. Patients with unexplained liver disease who are immunocompromised or suspected of having acute Hepatitis C infection may benefit from Nucleic Acid Test (LITO) for Hepatitis C Viral RNA to confirm Hepatitis C status. Blood BLOOD SPECIMEN / Unknown Lab Venipuncture / Unknown 11/04/2023 3:25 PM STUDENT NURSE 11/04/2023 3:38 PM STUDENT NURSE Tomas Fuentes MD LAB - CHEMISTRY TRE URIBE [facility] [address] [place] [address], [facility] [phone] from Last 3 Months or Most Recently Relevant to Health Maintenance Care Teams Stable Cleaner Relationship Specialty Start Date End Date Ignacio Fagan DO [address] [place], [place] [id number] PCP - General Internal Medicine 05/04/24
--- OUTSIDE RECORDS SUMMARY | 2024-10-05 15:02 | XMS_ITS | Clinical Summary ---
Author Organization [facility] Address [address] [place] [address] Care Team Providers Care Head Charger Name Role Phone Alexander Salazar Primary Care Provider Allergies Active Allergy Reactions Criticality Noted Date Comments Codeine Nausea & Vomiting Low 04/25/2022 Medications acetaminophen (TYLENOL) 500 mg tablet Take 2 tablets (1,000 mg total) by mouth every 6 (six) hours as needed for pain (1 tablet for mild to moderate pain. 2 tablets for severe pain) 30 tablet 04/25/2022 Active ibuprofen (ADVIL,MOTRIN) 800 mg tablet Take 1 tablet (800 mg total) by mouth every 6 (six) hours as needed for pain for up to 60 doses 60 tablet 04/25/2022 Active oxyCODONE (ROXICODONE) 5 mg immediate release tabletIndicatio ns:Pain Take 1 tablet (5 mg total) by mouth every 4 (four) hours as needed for pain for up to 6 doses 6 tablet 04/25/2022 Active Active Problems Problem Noted Date Diagnosed Date Closed fracture of left proximal humerus 022 Social History Tobacco Use Types Packs/Day Years Used Date Smoking Tobacco: Never Assessed Comments Unknown Sex and Gender Information Value Date Recorded Sex Assigned at Not on file Legal Sex Female 11:53 AM CDT Gender Identity Not on file Sexual Orientation Not on file Obstetrics History Last Filed Vital Signs Vital Sign Reading Time Taken Comments Blood Pressure 114/67 04/25/2022 8:30 PM CDT Pulse 84 04/25/2022 8:30 PM CDT Temperature 36.7 C (98 F) 04/25/2022 1:31 PM CDT Respiratory Rate 20 04/25/2022 1:31 PM CDT Oxygen Saturation 94% 04/25/2022 8:30 PM CDT Inhaled Oxygen Concentration - - Weight 77.1 kg (170 lb) 04/25/2022 1:31 PM CDT Height 160 cm (5' 3 ) 04/25/2022 1:31 PM CDT Body Mass Index 30.11 04/25/2022 1:31 PM CDT Plan of Treatment Health Maintenance Due Date Last Done Comments Breast Cancer Screening-Mammogram 1959 Cervical Cancer Screening 1959 Colon Cancer Screening-Colonoscopy 1959 Depression Screening 1959 Fall Risk Assessment 1959 Hepatitis C Screening 1959 Osteoporosis Screening-Bone Density Scan 1959 DTaP/Tdap/Td Vaccine (1 - Tdap) 1970 Hepatitis B Screening 1977 Zoster Vaccine (1 of 2) 2009 Influenza Vaccine (#1) 2024 Pneumococcal vaccine 65+ (1 of 1 - PCV) 2024 Well Visit 65+ [address] [place] [id number] [facility] [place] [id number] [employer] [facility] [facility] HMO/PPO Address: [facility] [id number] [place] [id number] Care Teams Head Charger Relationship Specialty Start Date End Date Alexander Salazar PA [address] [facility] [address] [place] [address] PCP - General Physician Postmaster Relief 04/25/22
--- OUTSIDE RECORDS SUMMARY | 2024-10-05 15:02 | XMS_ITS | Clinical Summary ---
Author Organization [facility] Address [address] [place] [id number] Care Team Providers Care Clerk General Name Role Phone Vladimir Morales MD Primary Care Provider [phone] Social History Tobacco Use Types Packs/Day Years Used Date Smoking Tobacco: Never Assessed Sex and Gender Information Value Date Recorded Sex Assigned at Not on file Gender Identity Not on file Sexual Orientation Not on file Plan of Treatment Health Maintenance Due Date Last Done Comments Depression Screening 1971 DTaP/Tdap/Td Vaccine (1 - Tdap) 1978 Breast Cancer Screening 1999 CT Colonography 2004 Cologuard 2004 Colonoscopy 2004 Colorectal Cancer Screen 2004 Fecal Occult Blood 2004 Sigmoidoscopy 2004 Pneumococcal Vaccine 50+ (1 of 1 - PCV) 2009 Shingles Vaccine (1 of 2) 2009 COVID-19 Vaccine ( - 2023-2 5 season) 2024 Influenza Vaccine (#1) 2024 Osteoporosis Screening 2024 Respiratory Syncytial Virus (RSV) Vaccine 60+ (1 - 1-dose 75+ series) 2034 HPV Vaccine Aged Out No longer eligi ble based on patient's age to complete this topic Hepatitis A Vaccine Aged Out No longe r eligible based on patient's age to complete this topic Hepatitis B Vaccine (For Physician/APC Discussion) Aged Out No longer elig ible based on patient's age to complete this topic Meningococcal Serogroup B Vaccine Aged Out No longer eligible based on patient's age to complete this topic Meningococcal Vaccine Aged Out No maurizio shakila eligible based on patient's age to complete this topic Care Teams Clerk General Relationship Specialty Start Date End Date Vladimir Morales MD PCP - General 09/14/19
--- OUTSIDE RECORDS SUMMARY | 2024-10-05 15:02 | XMS_ITS | Clinical Summary ---
Author Organization [facility] Address [address] [place] [address] Care Team Providers Care Sole Inker Name Role Phone Ignacio Fagan DO Primary Care Provider [phone] Source Comments [facility],non-owned Affiliates and Associated Physician Practices is amultiple site organization consisting of ambulatory clinics and hospital sitesin [place], [place], [place] and [place]. This disclosure is being madepursuant to the Care Everywhere program and may not contain all information available regarding this patient. Last updated 18.[facility] Allergies Active Allergy Reactions Criticality Noted Date [...] Weight 77.5 kg (170 lb 12.8 oz) 024 12:25 PM CDT Height 160 cm (5' 3 ) 05/04/2024 12:25 PM CDT Body Mass Index 30.26 05/04/2024 12:25 PM CDT Plan of Treatment Upcoming Encounters Date Type Department Care Team (Late st Contact Info) Description 11/02/2024 12:30 PM ELECTRIC TRANSFER OPERATOR Office Visit [facility] [address] [facility] [place] [address] Tomas Fuentes MD [address] [place] [id number] Health Maintenance Due Date Last Done Comments COLOGUARD (AGES 45-75) - COL ON CA SCREENING 1959 COLON MONITORING 1959 COLONOSCOPY - COLON CA SCREENING 1959 CT COLONOGRAPHY - COLON CA SCREENING 1959 Colorectal Cancer Screening 1959 FIT - COLON CA SCREENING 1959 FLEX SIG - COLON CA SCREENING 1959 LIPID TESTING 1959 MAMMOGRAM 1959 PAP SMEAR 1959 HIV SCREENING 1974 DTAP/TDAP/TD VACCINES (1 - Tdap) 1978 PNEUMOCOCCAL VACCINE 50+ (1 of 2 - PCV) 1978 ZOSTER VACCINE (1 of 2) 2009 HEPATITIS B VACCINE (1 of 3 - Risk 3-dose series) 2019 Respiratory Syncytial Virus (RSV) Vaccine Pt: or over 60 yrs (1 - Risk 60-74 years 1-dose series) 2019 COVID-19 VACCINE (1 - 2023-2 5 season) 2024 INFLUENZA VACCINE (#1) 2024 DEPRESSION SCREENING 08/31/2024 SCREENING FOR DIABETES 05/04/2027 , 11/04/2023 HEPATITIS C SCREENING Completed 11/04/2023 BONE DENSITY TESTING Completed 11/27/2023 HIB VACCINE Aged Out No longer eligi ble based on patient's age to complete this topic HPV VACCINE Aged Out No longer eligi ble based on patient's age to complete this topic MENINGOCOCCAL (Group B) VACCINE Aged Out No longer eligible b ased on patient's age to complete this topic MENINGOCOCCAL VACCINE Aged Out No maurizio shakila eligible based on patient's age to complete this topic Goals Goal Patient Goal Type Associated Problems [...] RFLX NAAT QUANT STAT 11/04/2023 3:25 PM ELECTRIC TRANSFER OPERATOR Primary biliary cholangitis (HCC) from Last 3 Months or Most Recently Relevant to Health Maintenance Results * (ABNORMAL) COMPREHENSIVE METABOLIC PANEL (05/04/2024 1:44 PM CDT) BUN 17 7 - 26 mg/dL 05/04/2024 2:51 PM [facility] Creatinine 0.63 0.56 - 0.96 mg/dL 05/04/2024 2:51 PM [facility] Sodium 143 136 - 145 mmol/L 05/04/2024 2:51 PM [facility] Potassium 3.8 3.5 - 4.5 mmol/L 05/04/2024 2:51 PM [facility] Chloride 112(H) 98 - 107 mmol/L 05/04/2024 2:51 PM [facility] CO2 25 22 - 29 mmol/L 05/04/2024 2:51 PM [facility] Glucose 78 70 - 115 mg/dL 05/04/2024 2:51 PM [facility] Calcium 9.2 8.4 - 10.2 mg/dL 05/04/2024 2:51 PM [facility] Protein Total 7.2 6.0 - 8.3 g/dL 05/04/2024 2:51 PM [facility] Albumin 3.4 3.4 - 5.0 g/dL 05/04/2024 2:51 PM [facility] Bilirubin Total 1.3(H) 0.2 - 1.2 mg/dL 05/04/2024 2:51 PM [facility] Alkaline Phosphatase 138 40 - 150 U/L 05/04/2024 2:51 PM [facility] ALT 23 5 - 55 U/L 05/04/2024 2:51 PM [facility] AST 26 5 - 34 U/L 05/04/2024 2:51 PM [facility] Anion Gap 6 6 - 16 05/04/2024 2:51 PM [facility] BUN/Creatinine Ratio 27(H) 7 - 23 05/04/2024 2:51 PM [facility] Osmolality Calculated 296(H) 275 - 295 mOsm/kg 05/04/2024 2:51 PM [facility] Albumin/Globulin Ratio 0.9(L) 1.1 - 2.3 05/04/2024 2:51 PM [facility] eGFR by CKD-EPI >90 >=90 mL/min/1.7 3 m2 05/04/2024 2:51 PM CDT [facility] Blood BLOOD SPECIMEN / Unknown Lab Venipuncture / Unknown 05/04/2024 1:44 PM CDT 05/04/2024 2:19 PM CDT Tomas Fuentes MD LAB - CHEMISTRY TRE URIBE [facility] [address] [place] [id number], [facility] [phone] * BONE DENSITY AXIAL SKELETON(1OR MORE SITES)[id number] (11/27/2023 10:30 AM CDT) Anatomical Region Laterality [...] below > Dictated by Mary Melgar MD (Devops Developer) 11/27/2023 12:11 PM I, Enoc Saini DO have personally reviewed and interpreted this [...] below > Dictated by Mary Melgar MD (Devops Developer) 11/27/2023 12:11PM IEnoc DO have personally reviewed and interpreted this examination/study. > Interpreting Provider: Enoc Saini DO on 11/27/2023 12:54 PM Tomas Fuentes MD DEXA ORDERABLES * HEPATITIS C AB SCREEN RFLX NAAT QUANT (11/04/2023 3:25 PM ELECTRIC TRANSFER OPERATOR) Hepatitis C Antibody Non-react giancarlo Non-reac tive 11/04/2023 4:29 PM ELECTRIC TRANSFER OPERATOR [facility] Comment:Hepatitis C Antibody screen indicates [...] Lab Venipuncture / Unknown 11/04/2023 3:25 PM ELECTRIC TRANSFER OPERATOR 11/04/2023 3:38 PM ELECTRIC TRANSFER OPERATOR Tomas Fuentes MD LAB - CHEMISTRY TRE URIBE Performing Organization Address City/[facility] Co de Phone Number [id number] [place] [address], [facility] [phone] from Last 3 Months or Most Recently Relevant to Health Maintenance Care Teams Sole Inker Relationship Specialty Start Date End Date Ignacio Fagan DO [address] [place] [address] PCP - General Internal Medicine 05/04/24
--- OUTSIDE RECORDS SUMMARY | 2024-10-05 15:02 | XMS_ITS | Referral Summary ---
Author Organization [facility] Address [address] [place] [id number] Care Team Providers Care Marker Shipments Name Role Phone Vladimir Morales MD Primary Care Provider [phone] Social History Tobacco Use Types Packs/Day Years Used Date Smoking Tobacco: Never Assessed Sex and Gender Information Value Date Recorded Sex Assigned at Not on file Gender Identity Not on file Sexual Orientation Not on file Plan of Treatment Not on file Care Teams Marker Shipments Relationship Specialty Start Date End Date Vladimir Morales MD PCP - General 09/14/19
--- OUTSIDE RECORDS SUMMARY | 2024-10-05 15:02 | XMS_ITS | Clinical Summary ---
[facility] Organization [facility] Address [address] [place] [address] Care Team Providers Care Solar Energy Specialist Name Role Phone Ignacio Fagan Primary Care Provider [phone] Allergies Active Allergy Reactions Criticality Noted Date Comments Codeine Nausea and Vomiting Low 04/25/2022 Medications ferrous sulfate 325 mg (65 mg iron) tablet Take 325 mg by mouth daily. Active levothyroxine 50 mcg tablet 08/18/2023 Active omeprazole (PriLOSEC) 20 mg Tablet, Delayed Release (E.C.) 10/28/2023 Acti ve ursodioL (BE) 500 mg tablet 09/19/2023 Activ e escitalopram oxalate (LEXAPRO) 20 mg tablet 08/18/2023 Active cholestyramine, with sugar, (QUESTRAN) 4 gram Powder in Packet Take 1 Packet by mouth daily. Active hydrOXYzine HCL (ATARAX) 25 mg tablet Take 1 Tablet (25 mg) by mouth 3 times daily as needed for Itching. 30 Tablet 03/16/2024 Active Active Problems No known active problems Encounters Date Type Department Care Team Description 09/26/2024 Orders Only [facility] [place] [address] [place] [address] Lloyd Headley MD 09/22/2024 External Device Data STL ABSTRACTION Provider, Abstract 09/13/2024 External Device Data ST[facility] ABSTRACTION Provider, Abstract 07/05/2024 External Device Data ST[place] ABSTRACTION Provider, Abstract from Last 3 Months Family History Medical History Relation Name Comments Lung Cancer Father Acute myelogenous leukemia Sister Relation Name Status Comments Brother Alive Father Mother Sister Son Alive Social History Tobacco Use Types Packs/Day Years Used Date Smoking Tobacco: Never Smokeless Tobacco: Never Tobacco Cessation:Counseling Given: Not Answered Alcohol Use Standard Drinks/Week Comments Never 0 (1 standard drink = 0.6 oz pur e alcohol) Comments Unknown Sex and Gender Information Value Date Recorded Sex Assigned at Not on file Legal Sex Female 1:39 PM CLINICAL TRIAL EDUCATOR Gender Identity Not on file Sexual Orientation Not on file Last Filed Vital Signs Vital Sign Reading Time Taken Comments Blood Pressure 138/78 06/23/2024 11:33 AM CDT Pulse 70 06/23/2024 11:33 AM CDT Temperature 36.8 C (98.2 F) 06/23/2024 11:33 AM CDT Respiratory Rate 15 06/23/2024 11:33 AM CDT Oxygen Saturation 96% 06/23/2024 11:33 AM CDT Inhaled Oxygen Concentration - - Weight 80.1 kg (176 lb 9.6 oz) 06/23/2024 11:33 AM CDT Height 160 cm (5' 3 ) 11/09/2023 2:43 PM CDT Body Mass Index 31.28 11/09/2023 2:43 PM CDT Plan of Treatment Upcoming Encounters Date Type Department Care Team (Late st Contact Info) Description 10/06/2024 1:00 PM CLINICAL TRIAL EDUCATOR Office Visit [facility] [address] [facility] [address] [place] [address] Lloyd Headley MD [address] [facility] [address] [place] [address] Health Maintenance Due Date Last Done Comments Pre-Diabetes and Diabetes Screening 1959 DTAP/TDAP/TD VACCINES (1 - Tdap) 1978 PNEUMOCOCCAL VACCINE 65+ YEA RS (1 of 2 - PCV) 1978 BREAST CANCER SCREENING 1999 ZOSTER VACCINE (1 of 2) 2009 RSV VACCINE (60+ or ) (1 - Risk 60-74 years 1-dose series) 2019 INFLUENZA VACCINE (#1) 2024 Medicare [place]age ([place]) Prev entative Visit/Annual Wellness Visit 08/31/2024 OSTEOPOROSIS SCREENING Completed 11/27/2023, 2023 Procedures Procedure Name Priority Date/Time Associated Diagnosis Comments CT ABDOMEN PELVIS W CONTRAST Routine 09/26/2024 11:35 AM CLINICAL TRIAL EDUCATOR from Last 3 Months Results * CT ABDOMEN PELVIS W CONTRAST (09/26/2024 11:35 AM CLINICAL TRIAL EDUCATOR) Anatomical Region Laterality Modality Abdomen Other Lloyd Headley MD CT ORDERABLES Final Result from Last 3 Months Insurance [facility] [id number] Care Teams Solar Energy Specialist Relationship Specialty Start Date End Date Ignacio Fagan DO [id number] [facility] [address] [place] [address] PCP - General Internal Medicine 06/23/24
--- OUTSIDE RECORDS SUMMARY | 2024-10-05 15:02 | XMS_ITS | Patient Health Summary ---
Author Organization [facility] Address [address] [place] [address] Care Team Providers Care Net Web Application Developer Name Role Phone Ignacio Fagan DO Primary Care Provider [phone] Note from [facility],non-owned Affiliates and Associated Physician Practices is amultiple site organization consisting of ambulatory clinics and hospital sitesin [place], [place], [place] and [place]. This disclosure is being madepursuant to the Care Everywhere program and may not contain all information available regarding this patient. Last updated 18.[facility] Allergies * Codeine(Nausea and/or Vomiting) -Low Criticality Medications * Be aware that medications may not be up to date on this document. Alwaysverify current medications with the patient. * KLS OMPERAZOLE 20 MG tablet(Started 10/28/2023) Take 1 (one) tablet by mouth daily before breakfast * levothyroxine (Synthroid) 50 MCG tablet(Started 08/18/2023) Take 1 (one) tablet by mouth daily before breakfast * escitalopram (Lexapro) 20 MG tablet(Started 08/18/2023) * cholestyramine (Questran) 4 g packet(Started 11/04/2023) Take 1 (one) packet by mouth 2 times daily * ursodiol (Cornelius Forte) 500 MG tablet(Started 05/04/2024) Take 1 (one) tablet by mouth 2 times daily with morning and evening meal 2 refills by 05/04/2025 * hydrOXYzine HCl (Atarax) 10 MG tablet(Started 05/04/2024) Take 1 (one) tablet by mouth 3 times daily as needed for Itching 2 refills by 05/04/2025 Social History Tobacco Use Types Packs/Day Years [...] Mass Index 30.26 05/04/2024 12:25 PM CDT Procedures * COMPREHENSIVE METABOLIC PANEL(Performed 05/04/2024) Performed for Primary biliary cholangitis (HCC) * CBC W AUTO DIFFERENTIAL(Performed 05/04/2024) Performed for Primary biliary cholangitis (HCC) * DEXA BONE DENSITY AXIAL SKELETON(Performed 11/27/2023) Performed for Primary biliary cholangitis (HCC) * SMOOTH MUSCLE ANTIBODY TITER(Performed 11/04/2023) Performed for Primary biliary cholangitis (HCC) * ALPHA FETOPROTEIN BLOOD TUMOR MARKER(Performed 11/04/2023) Performed for Primary biliary cholangitis (HCC) * PT-INR [facility]H(Performed 11/04/2023) Performed for Primary biliary cholangitis (HCC) * COMPREHENSIVE METABOLIC PANEL(Performed 11/04/2023) Performed for Primary biliary cholangitis (HCC) * CBC W AUTO DIFFERENTIAL(Performed 11/04/2023) Performed for Primary biliary cholangitis (HCC) * HEPATITIS C AB SCREEN RFLX NAAT QUANT(Performed 11/04/2023) Performed for Primary biliary cholangitis (HCC) * SMOOTH MUSCLE ANTIBODY W REFLEX TITER(Performed 11/04/2023) Performed for Primary biliary cholangitis (HCC) * GERALD BLOOD SCREEN W/REFLEX TITER(Performed 11/04/2023) Performed for Primary biliary cholangitis (HCC) * [id number]-[id number] BLOOD(Performed 11/04/2023) Performed for Primary biliary cholangitis (HCC) * IGA BLOOD(Performed 11/04/2023) Performed for Primary biliary cholangitis (HCC) * SLA AUTOANTIBODY(Performed 11/04/2023) Performed for Primary biliary cholangitis (HCC) * IGM BLOOD(Performed 11/04/2023) Performed for Primary biliary cholangitis (HCC) * IGG BLOOD(Performed 11/04/2023) Performed for Primary biliary cholangitis (HCC) Results * (ABNORMAL) CBC WITH DIFFERENTIAL (05/04/2024 1:44 PM T) Only the most recent of2 resultswithin the time period is included. Pathologist [facility] WBC 4.6 4.0 - 10.7 x10E9/L 05/04/2024 3:04 PM [facility] RBC Count 4.44 3.90 - 5.20 x10E12/L 05/04/2024 3:04 PM [facility] Hemoglobin 13.7 11.9 - 15.8 g/dL 05/04/2024 3:04 PM [facility] Hematocrit 39.8 34.8 - 46.1 % 05/04/2024 3:04 PM [facility] MCV 89.6 80.0 - 98.0 fL 05/04/2024 3:04 PM [facility] MCH 30.9 26.7 - 33.6 pg 05/04/2024 3:04 PM [facility] MCHC 34.4 31.7 - 36.3 g/dL 05/04/2024 3:04 PM [facility] RDW-CV 13.3 11.3 - 14.8 % 05/04/2024 3:04 PM [facility] Platelet Count 115(L) 150 - 420 x10E9/L 05/04/2024 3:04 PM [facility] MPV 11.4 7.8 - 11.4 fL 05/04/2024 3:04 PM [facility] Neutrophil % 49.8 41.0 - 74.0 % 05/04/2024 3:04 PM [facility] Lymphocyte % 36.2 17.0 - 47.0 % 05/04/2024 3:04 PM CDT [facility] Monocyte % 8.3 3.0 - 11.0 % 05/04/2024 3:04 PM T [facility] Eosinophil % 4.6 0.0 - 7.0 % 05/04/2024 3:04 PM [facility] Basophil % 0.9 0.0 - 1.6 % 05/04/2024 3:04 PM [facility] Immature Granulocytes % 0.2 0.0 - 1.0 % 05/04/2024 3:04 PM T [facility] Neutrophil Absolute 2.28 1.60 - 7.50 x10E9/L 05/04/2024 3:04 PM [facility] Lymphocyte Absolute 1.66 1.00 - 4.40 x10E9/L 05/04/2024 3:04 PM [facility] Monocyte Absolute 0.38 0.15 - 1.00 x10E9/L 05/04/2024 3:04 PM [facility] Eosinophil Absolute 0.21 0.00 - 0.60 x10E9/L 05/04/2024 3:04 PM [facility] Basophil Absolute 0.04 0.00 - 0.13 x10E9/L 05/04/2024 3:04 PM [facility] Blood BLOOD SPECIMEN / Unknown Lab Venipuncture / Unknown 05/04/2024 1:44 PM CDT 05/04/2024 2:19 PM CDT Tomas Fuentes MD LAB - HEMATOLOGY ORD ERABLES [facility] [address] [place] [address], [facility] [phone] * (ABNORMAL) COMPREHENSIVE METABOLIC PANEL (05/04/2024 1:44 PM CDT) Only the most recent of2 resultswithin the time period is included. BUN 17 7 - 26 mg/dL 05/04/2024 2:51 PM CDT [facility] Creatinine 0.63 0.56 - 0.96 mg/dL 05/04/2024 2:51 PM [facility] Sodium 143 136 - 145 mmol/L 05/04/2024 2:51 PM [facility] Potassium 3.8 3.5 - 4.5 mmol/L 05/04/2024 2:51 PM [facility] Chloride 112(H) 98 - 107 mmol/L 05/04/2024 2:51 PM [facility] CO2 25 22 - 29 mmol/L 05/04/2024 2:51 PM [facility] Glucose 78 70 - 115 mg/dL 05/04/2024 2:51 PM [facility] Calcium 9.2 8.4 - 10.2 mg/dL 05/04/2024 2:51 PM [facility] Protein Total 7.2 6.0 - 8.3 g/dL 05/04/2024 2:51 PM [facility] Albumin 3.4 3.4 - 5.0 g/dL 05/04/2024 2:51 PM [facility] Bilirubin Total 1.3(H) 0.2 - 1.2 mg/dL 05/04/2024 2:51 PM [facility] Alkaline Phosphatase 138 40 - 150 U/L 05/04/2024 2:51 PM [facility] ALT 23 5 - 55 U/L 05/04/2024 2:51 PM [facility] AST 26 5 - 34 U/L 05/04/2024 2:51 PM [facility] Anion Gap 6 6 - 16 05/04/2024 2:51 PM [facility] BUN/Creatinine Ratio 27(H) 7 - 23 05/04/2024 2:51 PM [facility] Osmolality Calculated 296(H) 275 - 295 mOsm/kg 05/04/2024 2:51 PM [facility] Albumin/Globulin Ratio 0.9(L) 1.1 - 2.3 05/04/2024 2:51 PM [facility] eGFR by CKD-EPI >90 >=90 mL/min/1.7 3 m2 05/04/2024 2:51 PM [facility] Blood BLOOD SPECIMEN / Unknown Lab Venipuncture / Unknown 05/04/2024 1:44 PM CDT 05/04/2024 2:19 PM CDT Tomas Fuentes MD LAB - CHEMISTRY TRE [facility] [place] [id number] [place] [address], [facility] [phone] * BONE DENSITY AXIAL SKELETON(1OR MORE SITES)[id number] (11/27/2023 10:30 AM CDT) Anatomical Region Laterality [...] below > Dictated by Mary Melgar MD (Academy Director) 11/27/2023 12:11 PM Enoc Vegas DO have [...] below > Dictated by Mary Melgar MD (Academy Director) 11/27/2023 12:11PM IEnoc DO have personally reviewed and interpreted this examination/study. > Interpreting Provider: Enoc Saini DO on 11/27/2023 12:54 PM -Kin Alfredo MALAVE DEXA ORDERABLES * (ABNORMAL) PT-INR [facility] (11/04/2023 3:25 PM [facility]) PT 15.4(H) 12.1 - 14.8 Seconds 11/04/2023 4:08 PM [facility] INR 1.3 See Comment 11/04/2023 4:08 PM [facility] Comment:The suggested therap eutic range for standard coumadin (warfarin) therapy is an INR of 2.0-3.0. For high-risk patients (Mechanical Mitral Valve Prosthesis, etc.), the suggested prophylactic therapeutic range is an INR of 2.5-3.5. Blood BLOOD SPECIMEN / Unknown Lab Venipuncture / Unknown 11/04/2023 3:25 PM [facility] T[employer] 11/04/2023 3:38 PM COPPER TAPPER Tomas Fuentes MD LAB - COAGULATION OR DERABLES Performing Organization Address [facility]/ZIP Co de Phone Number [facility] [address] [address], [facility] [phone] * HEPATITIS C AB SCREEN RFLX NAAT QUANT (11/04/2023 3:25 PM COPPER TAPPER) [facility] Hepatitis C Antibody Non-react giancarlo Non-reac tive 11/04/2023 4:29 PM COPPER TAPPER [facility] Comment:Hepatitis C Antibody screen indicates no serologic evidence of past or current infection with Hepatitis C Virus. Patients with unexplained liver disease who are immunocompromised or suspected of having acute Hepatitis C infection may benefit from Nucleic Acid Test (LITO) for Hepatitis C Viral RNA to confirm Hepatitis C status. Blood BLOOD SPECIMEN / Unknown Lab Venipuncture / Unknown 11/04/2023 3:25 PM COPPER TAPPER 11/04/2023 3:38 PM COPPER TAPPER Tomas Fuentes MD LAB - CHEMISTRY ORDE RABLES Performing Organization Address City/[facility]/ZIP Co de Phone Number [address] [address], [facility] [phone] * SOLUBLE LIVER ANTIGEN (SLA) ANTIBODY (11/04/2023 3:25 PM COPPER TAPPER) Pathologist [facility] Soluable Liver Antigen Antibody IgG 3.5 0.0 - 24.9 U 11/10/2023 10:00 PM CDT [employer] ([facility]) Comment: REFERENCE INTERVAL: Soluble Liver Antigen Antibody, IgG 0.0 - 20.0 U ........... Negative 20.1 - 24.9 U ........... Equivocal 25.0 U or greater ....... Positive The presence of SLA antibodies has almost 100% specificity for autoimmune hepatitis, although only 12-30% have these antibodies. Thus, a negative SLA IgG test does not rule out autoimmune hepatitis. Performed By: [employer] [address] [place] [address] Clinic Coordinator: Lan Sandoval MD, PhD CLIA Number: [id number] Blood BLOOD SPECIMEN / Unknown Lab Venipuncture / Unknown 11/04/2023 3:25 PM COPPER TAPPER 11/04/2023 3:39 PM COPPER TAPPER Tomas Fuentes MD LAB - SEROLOGY ORDER APRIL Performing Organization Address [facility] Co de Phone Number [employer] ([facility]) [address] [place] [address] * (ABNORMAL) SMOOTH MUSCLE ANTIBODY W REFLEX TITER (11/04/2023 3:25 PM [facility]PER TAPPER) F-Actin Antibody IgG 57(H) 0 - 19 Units 11/06/2023 6:56 AM [employer]PER T[employer]PER [employer] ([facility]) Comment: REFERENCE INTERVAL: F-Actin (Smooth Muscle) Antibody, IgG by REN 19 Units or less ....... Negative 20 - 30 Units .......... Weak Positive-Suggest repeat testing in two to three weeks with fresh specimen. 31 Units or greater..... Positive-Suggestive of autoimmune hepatitis type 1 or chronic active hepatitis. F-actin IgG antibodies have been shown to have increased sensitivity for autoimmune hepatitis (AIH) but lower specificity than smooth muscle antibodies (SMA). F-actin IgG antibodies can also be seen in SMA-negative disease controls (non-AIH), especially in patients with primary biliary cirrhosis and chronic hepatitis C infections. Some patients with AIH may be SMA-positive but negative for F-actin IgG. Consider testing for SMA by IFA if suspicion for AIH is strong. Performed by [facility] [employer], [address] [place], [place] [id number] [email or web address], Filemon Walton MD, Lab. Director CLIA Number: [id number] Blood BLOOD SPECIMEN / Unknown Lab Venipuncture / Unknown 11/04/2023 3:25 PM COPPER TAPPER 11/04/2023 3:39 PM COPPER TAPPER Tomas Fuentes MD LAB - SEROLOGY ORDER APRIL [employer] ([facility]) [address] * (ABNORMAL) SMOOTH MUSCLE ANTIBODY TITER (11/04/2023 3:25 PM COPPER TAPPER) [facility] Smooth Muscle Antibody IgG Titer See Note(H) <1:20 11/08/2023 7:27 AM CDT [employer] [facility]) Comment: High degree of non-specific fluorescence observed; results indeterminate. Recommend repeat testing in 4 to 6 weeks. INTERPRETIVE INFORMATION: Smooth Muscle Ab, IgG Titer Less than 1:20 ........ Negative - No antibody detected. 1:20 - 1:80 .......... Weak Positive - Suggest repeat in two to three weeks with fresh specimen. 1:160 or greater ...... Positive - Suggestive of autoimmune hepatitis or chronic active hepatitis. Performed By: [facility] [address] [place] [address] Clinic Coordinator: Lan Sandoval MD, PhD CLIA Number: [id number] Blood BLOOD SPECIMEN / Unknown Lab Venipuncture / Unknown 11/04/2023 3:25 PM COPPER TAPPER 11/04/2023 3:39 PM COPPER TAPPER Tomas Fuentes MD LAB - CHEMISTRY TRE [facility] [employer] [facility]) [address] [place] [address], [facility] * GERALD BLOOD SCREEN W/REFLEX TITER (11/04/2023 3:25 PM COPPER TAPPER) [facility] GERALD IgG None Detected None Detected 11/05/2023 10:54 PM [employer]PER TAPPER [employer] ([facility]) Comment: If suspicion of connective tissue disease is strong and GERALD EIA is negative, consider testing for GERALD by IFA ([id number]). INTERPRETIVE INFORMATION: Anti-Nuclear Antibodies (GERALD), IgG by REN Antinuclear Antibodies (GERALD), IgG by REN: GERALD specimens are screened using enzyme-linked immunosorbent assay (REN) methodology. All REN results reported as Detected are further tested by indirect fluorescent assay (IFA) using HEp-2 substrate with an IgG-specific conjugate. The GERALD REN screen is designed to detect antibodies against dsDNA, histones, SS-A (Ro), SS-B (La), Drew, Drew/[employer], Scl-70, Sabrina-1, centromeric proteins, other antigens extracted from the HEp-2 cell nucleus. GERALD REN assays have been reported to have lower sensitivities than GERALD IFA for systemic autoimmune rheumatic diseases (SARD). Negative results do not necessarily rule out SARD. Performed By: [address] [address] Clinic Coordinator: Lan Sandoval MD, PhD CLIA Number: [id number] Blood BLOOD SPECIMEN / Unknown Lab Venipuncture / Unknown 11/04/2023 3:25 PM [facility] TAP[facility] 11/04/2023 3:38 PM COPPER TAPPER Tomas Fuentes MD LAB - CHEMISTRY TRE [facility] Performing Organization Address City/[facility]/ZIP Co de Phone Number [facility] ([facility]) [address] [place] [id number] * ALPHA FETOPROTEIN BLOOD TUMOR MARKER (11/04/2023 3:25 PM COPPER TAPPER) [facility] Alpha-Fetoprote in Tumor Marker 3.3 <=8.3 ng/mL 11/04/2023 4:30 PM COPPER TAPPER [facility] Comment: AFP values will vary depending on testing procedure used. Results are not comparable across different methods. AFP values obtained by [facility] using an Godfrey Alinity Immunoassay. Blood BLOOD SPECIMEN / Unknown Lab Venipuncture / Unknown 11/04/2023 3:25 PM COPPER TAPPER 11/04/2023 3:45 PM COPPER TAPPER Tomas Fuentes MD LAB - CHEMISTRY TRE [facility] [address] [place] [address], [facility] [phone] * [id number]-5-[id number] BLOOD (11/04/2023 3:25 PM COPPER TAPPER) [facility] Qveez-6-Tljdxt ypsin 194 90 - 200 mg/dL 11/04/2023 4:12 PM COPPER TAPPER [facility] Blood BLOOD SPECIMEN / Unknown Lab Venipuncture / Unknown 11/04/2023 3:25 PM COPPER TAPPER 11/04/2023 3:38 PM COPPER TAPPER Tomas Fuentes MD LAB - CHEMISTRY TRE [facility] Performing Organization Address City/[facility]/ZIP Co de Phone Number [address] [address], [place] [phone] * (ABNORMAL) IGM BLOOD (11/04/2023 3:25 PM COPPER TAPPER) IgM 323(H) 37 - 286 mg/dL 11/04/2023 4:10 PM COPPER TAPPER [facility] Comment:Result obtained by kim norwood. Blood BLOOD SPECIMEN / Unknown Lab Venipuncture / Unknown 11/04/2023 3:25 PM COPPER TAPPER 11/04/2023 3:38 PM COPPER TAPPER Tomas Fuentes MD LAB - CHEMISTRY TRE [facility] Performing Organization Address City/[facility]/ZIP Co de Phone Number [address] [address], [place] [phone] * (ABNORMAL) IGG BLOOD (11/04/2023 3:25 PM COPPER TAPPER) IgG 1,772(H) 767 - 1,590 mg/dL 11/04/2023 4:10 PM COPPER TAPPER [facility] Blood BLOOD SPECIMEN / Unknown Lab Venipuncture / Unknown 11/04/2023 3:25 PM COPPER TAPPER 11/04/2023 3:38 PM COPPER TAPPER Tomas Fuentes MD LAB - CHEMISTRY TRE [facility] Performing Organization Address City/[facility]/ZIP Co de Phone Number [address] [address], [place] [phone] * (ABNORMAL) IGA BLOOD (11/04/2023 3:25 PM COPPER TAPPER) IgA 499(H) 61 - 356 mg/dL 11/04/2023 4:10 PM COPPER TAPPER [facility] Blood BLOOD SPECIMEN / Unknown Lab Venipuncture / Unknown 11/04/2023 3:25 PM COPPER TAPPER 11/04/2023 3:38 PM COPPER TAPPER Tomsa Fuentes MD LAB - CHEMISTRY TRE [facility] Performing Organization Address City/State/[facility] Co de Phone Number [facility] [address] [place] [address], [facility] [phone] Care Teams Net Web Application Developer Relationship Specialty Start Date End Date Ignacio Fagan DO [address] [place] [address] PCP - General Internal Medicine 05/04/24
--- OUTSIDE RECORDS SUMMARY | 2024-10-05 15:02 | XMS_ITS | Referral Summary ---
Author Organization [facility] Address [address] [place] [address] Care Team Providers Care Milieu Therapist Name Role Phone Alexander Salazar Primary Care [...] 04/25/2022 1:31 PM CDT Plan of Treatment Not on file [facility] Care Teams Milieu Therapist Relationship Specialty Start Date End Date Alexander Salazar PA [address] [address] PCP - General Physician Shade Cloth Finisher 04/25/22
== END 2024-10-05 14:06 | disposition home or self-care (01) ==
PROVIDERS: PCP Internal Medicine; Visit Provider Internal Medicine
DX: R18.8 Other ascites (principal); K74.60 Unspecified cirrhosis of liver
CPT/HCPCS: 36415; 80053; 85025

== ENCOUNTER 2024-10-06 12:48 | Outpatient (CLI) | payer MEDICARE, SELFPAY ==
--- OUTSIDE RECORDS SUMMARY | 2024-10-06 12:55 | XMS_ITS | Patient Health Summary ---
Author Organization [facility] Address [address] [place] [address] Care Team Providers Care Miscellaneous Machine Operator Name Role Phone Ignacio Fagan DO Primary Care Provider [phone] [facility],non-owned Affiliates and Associated Physician Practices is amultiple site organization consisting of ambulatory clinics and hospital sitesin [place], [place], [place] and [place]. This disclosure is being madepursuant to the Care Everywhere program and may not contain all information available regarding this patient. Last updated 18.[facility] Allergies * Codeine(Nausea and/or Vomiting) -Low Criticality [...] Performed for Primary biliary cholangitis (HCC) * HXGUA-2-BHJFSALMWIS BLOOD(Performed 11/04/2023) Performed for Primary biliary cholangitis [...] resultswithin the time period is included. Pathologist [facility] WBC 4.6 4.0 - 10.7 x10E9/L 05/04/2024 3:04 PM [facility] RBC Count 4.44 3.90 - 5.20 x10E12/L 05/04/2024 3:04 PM [facility] Hemoglobin 13.7 11.9 - 15.8 g/dL 05/04/2024 3:04 PM [facility] Hematocrit 39.8 34.8 - 46.1 % 05/04/2024 3:04 PM [facility] MCV 89.6 80.0 - 98.0 fL 05/04/2024 3:04 PM [facility] MCH 30.9 26.7 - 33.6 pg 05/04/2024 3:04 PM [facility] MCHC 34.4 31.7 - 36.3 g/dL 05/04/2024 3:04 PM [facility] RDW-CV 13.3 11.3 - 14.8 % 05/04/2024 3:04 PM [facility] Platelet Count 115(L) 150 - 420 x10E9/L 05/04/2024 3:04 PM [facility] MPV 11.4 7.8 - 11.4 fL 05/04/2024 3:04 PM [facility] Neutrophil % 49.8 41.0 - 74.0 % 05/04/2024 3:04 PM [facility] Lymphocyte % 36.2 17.0 - 47.0 % 05/04/2024 3:04 PM CDT [facility] Monocyte % 8.3 3.0 - 11.0 % 05/04/2024 3:04 PM T [facility] Eosinophil % 4.6 0.0 - 7.0 % 05/04/2024 3:04 PM [facility] Basophil % 0.9 0.0 - 1.6 % 05/04/2024 3:04 PM [facility] Immature Granulocytes % 0.2 0.0 - 1.0 % 05/04/2024 3:04 PM T [facility] Neutrophil Absolute 2.28 1.60 - 7.50 x10E9/L 05/04/2024 3:04 PM [facility] Lymphocyte Absolute 1.66 1.00 - 4.40 x10E9/L 05/04/2024 3:04 PM [facility] Monocyte Absolute 0.38 0.15 - 1.00 x10E9/L 05/04/2024 3:04 PM [facility] Eosinophil Absolute 0.21 0.00 - 0.60 x10E9/L 05/04/2024 3:04 PM [facility] Basophil Absolute 0.04 0.00 - 0.13 x10E9/L 05/04/2024 3:04 PM [facility] Blood BLOOD SPECIMEN / Unknown Lab Venipuncture / Unknown 05/04/2024 1:44 PM CDT 05/04/2024 2:19 PM CDT Tomas Fuentes MD LAB - HEMATOLOGY ORD ERABLES [facility] [address] [place] [phone], [facility] [phone] * (ABNORMAL) COMPREHENSIVE METABOLIC PANEL (05/04/2024 1:44 PM CDT) Only the most recent of2 resultswithin the time period is included. BUN 17 7 - 26 mg/dL 05/04/2024 2:51 PM CDT [facility] Creatinine 0.63 0.56 - 0.96 mg/dL 05/04/2024 2:51 PM [facility] Sodium 143 136 - 145 mmol/L 05/04/2024 2:51 PM [facility] Potassium 3.8 3.5 - 4.5 mmol/L 05/04/2024 2:51 PM [facility] Chloride 112(H) 98 - 107 mmol/L 05/04/2024 2:51 PM [facility] CO2 25 22 - 29 mmol/L 05/04/2024 2:51 PM [facility] Glucose 78 70 - 115 mg/dL 05/04/2024 2:51 PM [facility] Calcium 9.2 8.4 - 10.2 mg/dL 05/04/2024 2:51 PM [facility] Protein Total 7.2 6.0 - 8.3 g/dL 05/04/2024 2:51 PM [facility] Albumin 3.4 3.4 - 5.0 g/dL 05/04/2024 2:51 PM [facility] Bilirubin Total 1.3(H) 0.2 - 1.2 mg/dL 05/04/2024 2:51 PM [facility] Alkaline Phosphatase 138 40 - 150 U/L 05/04/2024 2:51 PM [facility] ALT 23 5 - 55 U/L 05/04/2024 2:51 PM [facility] AST 26 5 - 34 U/L 05/04/2024 2:51 PM [facility] Anion Gap 6 6 - 16 05/04/2024 2:51 PM [facility] BUN/Creatinine Ratio 27(H) 7 - 23 05/04/2024 2:51 PM [facility] Osmolality Calculated 296(H) 275 - 295 mOsm/kg 05/04/2024 2:51 PM [facility] Albumin/Globulin Ratio 0.9(L) 1.1 - 2.3 05/04/2024 2:51 PM [facility] eGFR by CKD-EPI >90 >=90 mL/min/1.7 3 m2 05/04/2024 2:51 PM [facility] Blood BLOOD SPECIMEN / Unknown Lab Venipuncture / Unknown 05/04/2024 1:44 PM CDT 05/04/2024 2:19 PM CDT Tomas Fuentes MD LAB - CHEMISTRY TRE URIBE [facility] [place] [address] [place] [address], [facility] [phone] * BONE DENSITY AXIAL SKELETON(1OR MORE SITES)[id number] (11/27/2023 10:30 AM CDT) Anatomical Region Laterality [...] below > Dictated by Mary Melgar MD (Millwright Apprentice) 11/27/2023 12:11 PM Enoc Vegas DO have [...] below > Dictated by Mary Melgar MD (Millwright Apprentice) 11/27/2023 12:11PM IEnoc DO have personally reviewed and interpreted this examination/study. > Interpreting Provider: Enoc Saini DO on 11/27/2023 12:54 PM -Kin Alfredo MALAVE DEXA ORDERABLES * (ABNORMAL) PT-INR [facility] (11/04/2023 3:25 PM [facility]) PT 15.4(H) 12.1 - 14.8 Seconds 11/04/2023 4:[address] [facility] INR 1.3 See Comment 11/04/2023 4:[address] [facility] Comment:The suggested therap eutic range for standard coumadin (warfarin) therapy is an INR of 2.0-3.0. For high-risk patients (Mechanical Mitral Valve Prosthesis, etc.), the suggested prophylactic therapeutic range is an INR of 2.5-3.5. Blood BLOOD SPECIMEN / Unknown Lab Venipuncture / Unknown 11/04/2023 3:25 PM OXYGEN EQUIPMENT AIDE 11/04/2023 3:38 PM OXYGEN EQUIPMENT AIDE Tomas Fuentes MD LAB - COAGULATION OR DERABLES Performing Organization Address [facility]/ZIP Co de Phone Number [facility] [address] [address], [facility] [phone] * HEPATITIS C AB SCREEN RFLX NAAT QUANT (11/04/2023 3:25 PM OXYGEN EQUIPMENT AIDE) [facility] Hepatitis C Antibody Non-react giancarlo Non-reac tive 11/04/2023 4:29 PM OXYGEN EQUIPMENT AIDE [facility] Comment:Hepatitis C Antibody screen indicates no serologic evidence of past or current infection with Hepatitis C Virus. Patients with unexplained liver disease who are immunocompromised or suspected of having acute Hepatitis C infection may benefit from Nucleic Acid Test (LITO) for Hepatitis C Viral RNA to confirm Hepatitis C status. Blood BLOOD SPECIMEN / Unknown Lab Venipuncture / Unknown 11/04/2023 3:25 PM OXYGEN EQUIPMENT AIDE 11/04/2023 3:38 PM OXYGEN EQUIPMENT AIDE Tomas Fuentes MD LAB - CHEMISTRY ORDE RABLES Performing Organization Address City/[facility]/ZIP Co de Phone Number [address] [address], [facility] [phone] * SOLUBLE LIVER ANTIGEN (SLA) ANTIBODY (11/04/2023 3:25 PM OXYGEN EQUIPMENT AIDE) Pathologist [facility] Soluable Liver Antigen Antibody IgG 3.5 0.0 - 24.9 U 11/10/2023 10:00 PM CDT [employer] ([facility]) Comment: REFERENCE INTERVAL: Soluble Liver Antigen Antibody, IgG 0.0 - 20.0 U ........... Negative 20.1 - 24.9 U ........... Equivocal 25.0 U or greater ....... Positive The presence of SLA antibodies has almost 100% specificity for autoimmune hepatitis, although only 12-30% have these antibodies. Thus, a negative SLA IgG test does not rule out autoimmune hepatitis. Performed By: [facility] [employer] [facility] [address] [place] [address] Oil Well Fishing Tool Technician: Lan Sandoval MD, PhD CLIA Number: [id number] Blood BLOOD SPECIMEN / Unknown Lab Venipuncture / Unknown 11/04/2023 3:25 PM OXYGEN EQUIPMENT AIDE 11/04/2023 3:39 PM OXYGEN EQUIPMENT AIDE Tomas Fuentes MD LAB - SEROLOGY ORDER APRIL Performing Organization Address [facility]/[place]UST Co de Phone Number [employer] ([facility]) [address] [place] [address] * (ABNORMAL) SMOOTH MUSCLE ANTIBODY W REFLEX TITER (11/04/2023 3:25 PM OXYGEN EQUIPMENT AIDE) F-Actin Antibody IgG 57(H) 0 - 19 Units 11/06/2023 6:56 AM OXYGEN EQUIPMENT AIDE [facility]Jod[facility] ([facility]) Comment: REFERENCE INTERVAL: F-Actin (Smooth Muscle) Antibody, [...] suspicion for AIH is strong. Performed by [facility], [address] [place], [place] [id number] [email or web address], Filemon Walton MD, Lab. Director CLIA Number: [id number] Blood BLOOD SPECIMEN / Unknown Lab Venipuncture / Unknown 11/04/2023 3:25 PM OXYGEN EQUIPMENT AIDE 11/04/2023 3:39 PM OXYGEN EQUIPMENT AIDE Tomas Fuentes MD LAB - SEROLOGY ORDER APRIL [employer] ([facility]) [address] * (ABNORMAL) SMOOTH MUSCLE ANTIBODY TITER (11/04/2023 3:25 PM OXYGEN EQUIPMENT AIDE) [facility] Smooth Muscle Antibody IgG Titer See Note(H) <1:20 11/08/2023 7:27 AM CDT [employer] [facility]) Comment: High degree of non-specific fluorescence observed; [...] hepatitis or chronic active hepatitis. Performed By: [employer] [address] [place] [address] Oil Well Fishing Tool Technician: Lan Sandoval MD, PhD CLIA Number: [id number] Blood BLOOD SPECIMEN / Unknown Lab Venipuncture / Unknown 11/04/2023 3:25 PM OXYGEN EQUIPMENT AIDE 11/04/2023 3:39 PM OXYGEN EQUIPMENT AIDE Tomas Fuentes MD LAB - CHEMISTRY TRE URIBE TXJodange [facility]) [address] [place] [address], [facility] * GERALD BLOOD SCREEN W/REFLEX TITER (11/04/2023 3:25 PM OXYGEN EQUIPMENT AIDE) [facility] GERALD IgG None Detected None Detected 11/05/2023 10:54 PM OXYGEN EQUIPMENT AIDE TXJod[facility] ([facility]) Comment: If suspicion of connective tissue disease is strong and GERALD EIA is negative, consider testing for GERALD by IFA ([id number]). INTERPRETIVE INFORMATION: Anti-Nuclear Antibodies (GERALD), IgG by REN Antinuclear Antibodies (GERALD), IgG by REN: GERALD specimens are screened using enzyme-linked immunosorbent assay (REN) methodology. All REN results reported as Detected are further tested by indirect fluorescent assay (IFA) using HEp-2 substrate with an IgG-specific conjugate. The GERALD REN screen is designed to detect antibodies against dsDNA, histones, SS-A (Ro), SS-B (La), Drew, Drew/VENTILATION WORKER, Scl-70, Sabrina-1, centromeric proteins, other antigens extracted from the HEp-2 cell nucleus. GERALD REN assays have been reported to have lower sensitivities than GERALD IFA for systemic autoimmune rheumatic diseases (SARD). Negative results do not necessarily rule out SARD. Performed By: [address] [address] Oil Well Fishing Tool Technician: Lan Sandoval MD, PhD CLIA Number: [id number] Blood BLOOD SPECIMEN / Unknown Lab Venipuncture / Unknown 11/04/2023 3:25 PM OXYGEN EQUIPMENT AIDE 11/04/2023 3:38 PM OXYGEN EQUIPMENT AIDE Tomas Fuentes MD LAB - CHEMISTRY TRE URIBE Performing Organization Address City/[facility]/ZIP Co de Phone Number [facility] ([facility]) [address] [place] [id number] * ALPHA FETOPROTEIN BLOOD TUMOR MARKER (11/04/2023 3:25 PM OXYGEN EQUIPMENT AIDE) [facility] Alpha-Fetoprote in Tumor Marker 3.3 <=8.3 ng/mL 11/04/2023 4:30 PM OXYGEN EQUIPMENT AIDE [facility] Comment: AFP values will vary depending on testing procedure used. Results are not comparable across different methods. AFP values obtained by [facility] using an Godfrey Alinity Immunoassay. Blood BLOOD SPECIMEN / Unknown Lab Venipuncture / Unknown 11/04/2023 3:25 PM OXYGEN EQUIPMENT AIDE 11/04/2023 3:45 PM OXYGEN EQUIPMENT AIDE Tomas Fuentes MD LAB - CHEMISTRY TRE URIBE [facility] [address] [place] [phone], [facility] [phone] * DBSYJ-4-FNFOWFCEOOV BLOOD (11/04/2023 3:25 PM OXYGEN EQUIPMENT AIDE) [facility] Scpln-7-Mwnjsq ypsin 194 90 - 200 mg/dL 11/04/2023 4:12 PM OXYGEN EQUIPMENT AIDE [facility] Blood BLOOD SPECIMEN / Unknown Lab Venipuncture / Unknown 11/04/2023 3:25 PM OXYGEN EQUIPMENT AIDE 11/04/2023 3:38 PM OXYGEN EQUIPMENT AIDE Tomas Fuentes MD LAB - CHEMISTRY TRE URIBE Performing Organization Address City/[facility]/ZIP Co de Phone Number [address] [address], [place] [phone] * (ABNORMAL) IGM BLOOD (11/04/2023 3:25 PM OXYGEN EQUIPMENT AIDE) IgM 323(H) 37 - 286 mg/dL 11/04/2023 4:10 PM OXYGEN EQUIPMENT AIDE [facility] Comment:Result obtained by kim norwood. Blood BLOOD SPECIMEN / Unknown Lab Venipuncture / Unknown 11/04/2023 3:25 PM OXYGEN EQUIPMENT AIDE 11/04/2023 3:38 PM OXYGEN EQUIPMENT AIDE Tomas Fuentes MD LAB - CHEMISTRY TRE URIBE Performing Organization Address City/[facility]/ZIP Co de Phone Number [address] [address], [place] [phone] * (ABNORMAL) IGG BLOOD (11/04/2023 3:25 PM OXYGEN EQUIPMENT AIDE) IgG 1,772(H) 767 - 1,590 mg/dL 11/04/2023 4:10 PM OXYGEN EQUIPMENT AIDE [facility] Blood BLOOD SPECIMEN / Unknown Lab Venipuncture / Unknown 11/04/2023 3:25 PM OXYGEN EQUIPMENT AIDE 11/04/2023 3:38 PM OXYGEN EQUIPMENT AIDE Tomas Fuentes MD LAB - CHEMISTRY TRE URIBE Performing Organization Address City/[facility]/ZIP Co de Phone Number [address] [address], [place] [phone] * (ABNORMAL) IGA BLOOD (11/04/2023 3:25 PM OXYGEN EQUIPMENT AIDE) IgA 499(H) 61 - 356 mg/dL 11/04/2023 4:10 PM OXYGEN EQUIPMENT AIDE [facility] Blood BLOOD SPECIMEN / Unknown Lab Venipuncture / Unknown 11/04/2023 3:25 PM OXYGEN EQUIPMENT AIDE 11/04/2023 3:38 PM OXYGEN EQUIPMENT AIDE Tomas Fuentes MD LAB - CHEMISTRY TRE URIBE Performing Organization Address City/State/RUST Co de Phone Number [facility] [address] [place] [phone], [facility] [phone] Care Teams Miscellaneous Machine Operator Relationship Specialty Start Date End Date Ignacio Fagan DO [address] [place] [address] PCP - General Internal Medicine 05/04/24
--- OUTSIDE RECORDS SUMMARY | 2024-10-06 12:55 | XMS_ITS | Clinical Summary ---
Author Organization [facility] Address [address] [place] [address] Care Team Providers Care Pharmacy Associate Name Role Phone Ignacio Fagan DO Primary Care Provider [phone] Allergies Active Allergy Reactions Criticality Noted Date [...] Department Care Team Description 09/26/2024 Orders Only [facility] [place] [address] [place] [address] Lloyd Headley MD 09/22/2024 External [...] on file Legal Sex Female 1:39 PM SEARCH ADVERTISING STRATEGIST Gender Identity Not on file Sexual Orientation [...] st Contact Info) Description 10/06/2024 1:00 PM SEARCH ADVERTISING STRATEGIST Office Visit [facility] [place] [address] [place] [address] [facility] [address] [place] [address] Lloyd Headley MD [address] [facility] [address] [place] [address] Health Maintenance Due Date Last Done Comments Pre-Diabetes and Diabetes Screening 1959 DTAP/TDAP/TD VACCINES (1 - Tdap) 1978 PNEUMOCOCCAL VACCINE 65+ YEA RS (1 of 2 - PCV) 1978 BREAST CANCER SCREENING 1999 ZOSTER VACCINE (1 of 2) 2009 RSV VACCINE (60+ or ) (1 - Risk 60-74 years 1-dose series) 2019 INFLUENZA VACCINE (#1) 2024 [place] ([place]) Prev entative Visit/Annual Wellness Visit 08/31/2024 OSTEOPOROSIS SCREENING Completed 11/27/2023, 2023 Procedures Procedure Name Priority Date/Time Associated Diagnosis Comments CT ABDOMEN PELVIS W CONTRAST Routine 09/26/2024 11:35 AM SEARCH ADVERTISING STRATEGIST from Last 3 Months Results * CT ABDOMEN PELVIS W CONTRAST (09/26/2024 11:35 AM SEARCH ADVERTISING STRATEGIST) Anatomical Region Laterality Modality Abdomen Other Lloyd Headley MD CT ORDERABLES Final Result from Last [address] [facility] [id number] Care Teams Pharmacy Associate Relationship Specialty Start Date End Date Ignacio Fagan DO [address] [facility] [address] [place] [address] PCP - General Internal Medicine 06/23/24
--- OUTSIDE RECORDS SUMMARY | 2024-10-06 12:55 | XMS_ITS | Clinical Summary ---
Author Organization [facility] Address [address] [facility] [place] [address] Care Team Providers Care Auto Body Customizer Name Role Phone Ignacio Fagan DO Primary Care Provider [phone] Source Comments [facility],non-owned Affiliates and Associated Physician Practices is amultiple site organization consisting of ambulatory clinics and hospital sitesin [place], [place], [place] and [place]. This disclosure is being madepursuant to the Care Everywhere program and may not contain all information available regarding this patient. Last updated 18.[facility] Allergies Active Allergy Reactions Criticality Noted Date [...] st Contact Info) Description 11/02/2024 12:30 PM CLINICAL AUDITOR Office Visit [facility] [place] [address] [facility], [facility] [place] [address] Tomas Fuentes MD [address] [place] [address] Health Maintenance Due Date Last Done Comments [...] RFLX NAAT QUANT STAT 11/04/2023 3:25 PM CLINICAL AUDITOR Primary biliary cholangitis (HCC) from Last 3 Months or Most Recently Relevant to Health Maintenance Results * (ABNORMAL) COMPREHENSIVE METABOLIC PANEL (05/04/2024 1:44 PM CDT) BUN 17 7 - 26 mg/dL 05/04/2024 2:51 PM [facility] Creatinine 0.63 0.56 - 0.96 mg/dL 05/04/2024 2:51 PM [facility] Sodium 143 136 - 145 mmol/L 05/04/2024 2:51 PM [facility] Potassium 3.8 3.5 - 4.5 mmol/L 05/04/2024 2:51 PM [facility] Chloride 112(H) 98 - 107 mmol/L 05/04/2024 2:51 PM [facility] CO2 25 22 - 29 mmol/L 05/04/2024 2:51 PM [facility] Glucose 78 70 - 115 mg/dL 05/04/2024 2:51 PM [facility] Calcium 9.2 8.4 - 10.2 mg/dL 05/04/2024 2:51 PM [facility] Protein Total 7.2 6.0 - 8.3 g/dL 05/04/2024 2:51 PM [facility] Albumin 3.4 3.4 - 5.0 g/dL 05/04/2024 2:51 PM [facility] Bilirubin Total 1.3(H) 0.2 - 1.2 mg/dL 05/04/2024 2:51 PM [facility] Alkaline Phosphatase 138 40 - 150 U/L 05/04/2024 2:51 PM [facility] ALT 23 5 - 55 U/L 05/04/2024 2:51 PM [facility] AST 26 5 - 34 U/L 05/04/2024 2:51 PM [facility] Anion Gap 6 6 - 16 05/04/2024 2:51 PM [facility] BUN/Creatinine Ratio 27(H) 7 - 23 05/04/2024 2:51 PM [facility] Osmolality Calculated 296(H) 275 - 295 mOsm/kg 05/04/2024 2:51 PM [facility] Albumin/Globulin Ratio 0.9(L) 1.1 - 2.3 05/04/2024 2:51 PM [facility] eGFR by CKD-EPI >90 >=90 mL/min/1.7 3 m2 05/04/2024 2:51 PM CDT [facility] Blood BLOOD SPECIMEN / Unknown Lab Venipuncture / Unknown 05/04/2024 1:44 PM CDT 05/04/2024 2:19 PM CDT Tomas Fuentes MD LAB - CHEMISTRY TRE URIBE [facility] [address] [place] [phone], [facility] [phone] * BONE DENSITY AXIAL SKELETON(1OR MORE SITES)[id number] (11/27/2023 10:30 AM CDT) Anatomical Region Laterality [...] below > Dictated by Mary Melgar MD (Organ Pipe Voicer) 11/27/2023 12:11 PM I, Enoc Saini DO [...] below > Dictated by Mary Melgar MD (Organ Pipe Voicer) 11/27/2023 12:11PM [employer]oc DO have personally reviewed and interpreted this examination/study. > Interpreting Provider: Enoc Saini DO on 11/27/2023 12:54 PM Tomas Fuentes MD DEXA ORDERABLES * HEPATITIS C AB SCREEN RFLX NAAT QUANT (11/04/2023 3:25 PM CLINICAL AUDITOR) Hepatitis C Antibody Non-react giancarlo Non-reac tive 11/04/2023 4:29 PM CLINICAL AUDITOR [facility] Comment:Hepatitis C Antibody screen indicates [...] Lab Venipuncture / Unknown 11/04/2023 3:25 PM CLINICAL AUDITOR 11/04/2023 3:38 PM CLINICAL AUDITOR Tomas Fuentes MD LAB - CHEMISTRY TRE URIBE Performing Organization Address City/[facility] Co de Phone Number [place] [place] [address], [facility] [phone] from Last 3 Months or Most Recently Relevant to Health Maintenance Care Teams Auto Body Customizer Relationship Specialty Start Date End Date Ignacio Fagan DO [address] [place] [address] PCP - General Internal Medicine 05/04/24
--- OUTSIDE RECORDS SUMMARY | 2024-10-06 12:55 | XMS_ITS | Clinical Summary ---
Author Organization [facility] Address [address] [place] [address] Care Team Providers Care Failure Analysis Engineer Name Role Phone Vladimir Morales MD Primary Care Provider [phone] Social History Tobacco Use Types Packs/Day Years [...] age to complete this topic Care Teams Failure Analysis Engineer Relationship Specialty Start Date End Date Vladimir Morales MD PCP - General 09/14/19
--- OUTSIDE RECORDS SUMMARY | 2024-10-06 12:55 | XMS_ITS | Referral Summary ---
Author Organization [facility] Address [address] [place] [address] Care Team Providers Care Cms Expert Name Role Phone Vladimir Morales MD Primary Care Provider [phone] Social History Tobacco Use Types Packs/Day Years Used Date Smoking Tobacco: Never Assessed Sex and Gender Information Value Date Recorded Sex Assigned at Not on file Gender Identity Not on file Sexual Orientation Not on file Plan of Treatment Not on file Care Teams Cms Expert Relationship Specialty Start Date End Date Vladimir Morales MD PCP - General 09/14/19
--- OUTSIDE RECORDS SUMMARY | 2024-10-06 12:55 | XMS_ITS | Referral Summary ---
Author Organization [facility] Address [address] [place] [address] Care Team Providers Care Jig Bore Operator Name Role Phone Ignacio Fagan DO Primary Care Provider [phone] Source Comments [facility],non-owned Affiliates and Associated Physician Practices is amultiple site organization consisting of ambulatory clinics and hospital sitesin [place], [place], [place] and [place]. This disclosure is being madepursuant to the Care Everywhere program and may not contain all information available regarding this patient. Last updated 18.[facility] Allergies Active Allergy Reactions Criticality Noted Date [...] st Contact Info) Description 11/02/2024 12:30 PM HAND UPPER AND BOTTOM LACER Office Visit [facility] [address] [facility], [facility] [place] [address] Tomas Fuentes MD [address] [place] [address] Goals Goal Patient Goal Type Associated Problems [...] RFLX NAAT QUANT STAT 11/04/2023 3:25 PM HAND UPPER AND BOTTOM LACER Primary biliary cholangitis (HCC) from Last 3 Months or Most Recently Relevant to Health Maintenance Results * (ABNORMAL) COMPREHENSIVE METABOLIC PANEL (05/04/2024 1:44 PM CDT) BUN 17 7 - 26 mg/dL 05/04/2024 2:51 PM [facility] Creatinine 0.63 0.56 - 0.96 mg/dL 05/04/2024 2:51 PM [facility] Sodium 143 136 - 145 mmol/L 05/04/2024 2:51 PM [facility] Potassium 3.8 3.5 - 4.5 mmol/L 05/04/2024 2:51 PM [facility] Chloride 112(H) 98 - 107 mmol/L 05/04/2024 2:51 PM [facility] CO2 25 22 - 29 mmol/L 05/04/2024 2:51 PM [facility] Glucose 78 70 - 115 mg/dL 05/04/2024 2:51 PM [facility] Calcium 9.2 8.4 - 10.2 mg/dL 05/04/2024 2:51 PM [facility] Protein Total 7.2 6.0 - 8.3 g/dL 05/04/2024 2:51 PM [facility] Albumin 3.4 3.4 - 5.0 g/dL 05/04/2024 2:51 PM [facility] Bilirubin Total 1.3(H) 0.2 - 1.2 mg/dL 05/04/2024 2:51 PM [facility] Alkaline Phosphatase 138 40 - 150 U/L 05/04/2024 2:51 PM [facility] ALT 23 5 - 55 U/L 05/04/2024 2:51 PM [facility] AST 26 5 - 34 U/L 05/04/2024 2:51 PM [facility] Anion Gap 6 6 - 16 [...] Fuentes MD LAB - CHEMISTRY TRE [facility] Organization Address City/State/ZIP Co de Phone Number [address] [address], [facility] [phone] * BONE DENSITY AXIAL SKELETON(1OR MORE SITES)[id number] (11/27/2023 10:30 AM CDT) Anatomical Region Laterality [...] below > Dictated by Mary Melgar MD (Senior Tech Manufacturing Engineering) 11/27/2023 12:11 PM Enoc Vegas DO have [...] below > Dictated by Mary Melgar MD (Senior Tech Manufacturing Engineering) 11/27/2023 12:11PM Enoc Vegas DO have personally reviewed and interpreted this examination/study. > Interpreting Provider: Enoc Saini DO on 11/27/2023 12:54 PM Authorizing Provider Result Timothy Fuentes MD DEXA ORDERABLES * HEPATITIS C AB SCREEN RFLX NAAT QUANT (11/04/2023 3:25 PM HAND UPPER AND BOTTOM LACER) Hepatitis C Antibody Non-react giancarlo Non-reac tive 11/04/2023 4:29 PM HAND UPPER AND BOTTOM LACER [facility] Comment:Hepatitis C Antibody screen indicates [...] Lab Venipuncture / Unknown 11/04/2023 3:25 PM HAND UPPER AND BOTTOM LACER 11/04/2023 3:38 PM HAND UPPER AND BOTTOM LACER Tomas Fuentes MD LAB - CHEMISTRY TRE [facility] [address] [place] [address], [facility] [phone] from Last 3 Months or Most Recently Relevant to Health Maintenance Care Teams Jig Bore Operator Relationship Specialty Start Date End Date Ignacio Fagan DO [address] [place], [place] [phone] PCP - General Internal Medicine 05/04/24
--- OUTSIDE RECORDS SUMMARY | 2024-10-06 12:55 | XMS_ITS | Clinical Summary ---
Author Organization [facility] Address [address] [place] [address] Care Team Providers Care Dish Technician Name Role Phone Alexander Salazar Primary Care [...] Well Visit 65+ [address] [place] [address] [facility] [place] [address] [employer] H[employer] [facility] HMO/PPO Address: [facility] [id number] [place] [id number] Care Teams Dish Technician Relationship Specialty Start Date End Date Alexander Salazar PA [address] [facility] [address] [place] [address] PCP - General Physician One Piece Expansion Maker Hand 04/25/22
--- OUTSIDE RECORDS SUMMARY | 2024-10-06 12:55 | XMS_ITS | Referral Summary ---
Author Organization [facility] Address [address] [place] [address] Care Team Providers Care Bessemer Converter Operator Name Role Phone Alexander Salazar Primary Care [...] Plan of Treatment Not on file Insurance [facility] Care Teams Bessemer Converter Operator Relationship Specialty Start Date End Date Alexander Salazar PA [address] [address] PCP - General Physician Rnp 04/25/22
[2024-10-06 14:19] LABS: Carcinoembryonic Antigen 2.9 ng/mL (0.0-3.0)
== END 2024-10-06 12:49 | disposition home or self-care (01) ==
PROVIDERS: PCP Internal Medicine; Visit Provider Internal Medicine Hematology & Oncology
DX: C18.9 Malignant neoplasm of colon, unspecified (principal)
CPT/HCPCS: 36415; 82378

== ENCOUNTER 2025-01-24 13:03 | Outpatient (CLI) | payer MEDICARE, SELFPAY ==
--- OUTSIDE RECORDS SUMMARY | 2025-01-24 13:09 | XMS_ITS | Referral Summary ---
Author Organization [facility] Address 1 [place] [address] Care Team Providers Care Payment Analyst Name Role Phone Alexander Salazar Primary Care [...] Plan of Treatment Not on file Insurance [facility] Care Teams Payment Analyst Relationship Specialty Start Date End Date Alexander Salazar PA [address] [address] PCP - General Physician Spun Paste Machine Operator 04/25/22
--- OUTSIDE RECORDS SUMMARY | 2025-01-24 13:09 | XMS_ITS | Clinical Summary ---
Author Organization [facility] Address [address] [facility] [place] [address] Care Team Providers Care Regional Transfer Liaison Name Role Phone Ignacio Fagan DO Primary Care Provider [phone] Source Comments [facility],non-owned Affiliates and Associated Physician Practices is amultiple site organization consisting of ambulatory clinics and hospital sitesin [place], [place], [place] and [place]. This disclosure is being madepursuant to the Care Everywhere program and may not contain all information available regarding this patient. Last updated 18.[facility] Allergies Active Allergy Reactions Criticality Noted Date Comments Codeine Nausea and/or Vomiting Low 04/25/2022 Medications * Be aware that medications may not be up to date on this document. Alwaysverify current medications with the patient. KLS OMPERAZOLE 20 MG tablet Take 1 (one) tablet by mouth daily before breakfast 4 Active levothyroxine (Synthroid) 50 MCG tablet Take 1 (one) tablet by mouth daily before breakfast 3 Active escitalopram (Lexapro) 20 MG tablet 3 Active cholestyramine (Questran) 4 g packet Take 1 (one) packet by mouth 2 times daily 60 Each 4 Active Additional Information Patient not taking.Reported on 11/02/2024 ursodiol (Cornelius Forte) 500 MG tabletIndication s:Primary biliary cholangitis (HCC) Take 1 (one) tablet by mouth 2 times daily with morning and evening meal 30 tablet 2 4 Active hydrOXYzine HCl (Atarax) 10 MG tabletIndication s:Primary biliary cholangitis (HCC) Take 1 (one) tablet by mouth 3 times daily as needed for Itching 30 tablet 2 4 Active calcium carbonate (Caltrate) 600 MG tabletIndication s:Osteoporosis with current pathological fracture, unspecified osteoporosis type, initial encounter Take 1 (one) tablet by mouth 2 times daily 30 tablet 2 5 Active ergocalciferol (Drisdol) 1.25 MG (09694 UT) capsuleIndicatio ns:Osteoporosis with current pathological fracture, unspecified osteoporosis type, initial encounter Take 1 (one) capsule by mouth once daily for 90 days 30 capsule 2 5 02/02/20 25 Active Encounters Date Type Department Care Team Description 11/03/2024 Telephone [facility] - [address] [address] Carissa Sims, RN Med Question 11/02/2024 2:00 PM METAL SHAPING MACHINE OPERATOR - 11/02/2024 11:59 PM METAL SHAPING MACHINE OPERATOR Hospital Encounter [facility]RAW STATION [address] [place] [address] Tomas Fuentes MD Discharge Disposition: Home or Self Care 11/02/2024 1:00 PM METAL SHAPING MACHINE OPERATOR Procedure visit [facility] - [address] [address] Tomas Fuentes MD Primary biliary cholangitis 11/02/2024 12:30 PM METAL SHAPING MACHINE OPERATOR Office Visit [facility] - [address] [address] Tomas Fuentes MD Advanced hepatic fibrosis (Primary Dx); Primary biliary cholangitis; Osteoporosis with current pathological fracture, unspecified osteoporosis type, initial encounter; Low platelet count; Metabolic dysfunction-associate d steatotic liver disease (MASLD); Autoantibody titer positive; High total IgG; H/O right hemicolectomy; History of colorectal cancer; Osteoporosis without current pathological fracture, unspecified osteoporosis type 11/02/2024 Travel from Last 3 Months Social History Tobacco Use Types Packs/Day Years Used Date Smoking Tobacco: Never Smokeless Tobacco: Never Tobacco Cessation:Counseling Given: Not Answered Alcohol Use Standard Drinks/Week Comments Never 0 (1 standard drink = 0.6 oz pur e alcohol) Comments Unknown Sex and Gender Information Value Date Recorded Sex Assigned at Not on file Legal Sex Female 2:37 PM METAL SHAPING MACHINE OPERATOR Gender Identity Not on file Sexual Orientation Not on file Last Filed Vital Signs Vital Sign Reading Time Taken Comments Blood Pressure 108/66 11/02/2024 12:36 PM METAL SHAPING MACHINE OPERATOR Pulse 70 11/02/2024 12:36 PM METAL SHAPING MACHINE OPERATOR Temperature 36.9 C (98.5 F) 11/02/2024 12:36 PM METAL SHAPING MACHINE OPERATOR Respiratory Rate - - Oxygen Saturation 97% 11/02/2024 12:36 PM METAL SHAPING MACHINE OPERATOR Inhaled Oxygen Concentration - - Weight 81.6 kg (180 lb) 11/02/2024 12:36 PM METAL SHAPING MACHINE OPERATOR Height 160 cm (5' 3 ) 11/02/2024 12:36 PM METAL SHAPING MACHINE OPERATOR Body Mass Index 31.89 11/02/2024 12:36 PM METAL SHAPING MACHINE OPERATOR Plan of Treatment Upcoming Encounters Date Type Department Care Team (Late st Contact Info) Description 05/03/2025 1:00 PM CDT Office Visit [facility] [address] [facility] [place] [address] Tomas Fuentes MD [address] [facility] [address] [place] [address] Health Maintenance Due Date Last Done Comments [...] VACCINE (1 - 2023-2 5 season) 2024 DEPRESSION SCREENING 08/31/2024 MEDICARE AWV CALENDAR YEAR 2024 INFLUENZA VACCINE (Season Ended) 2025 SCREENING FOR DIABETES 11/03/2027 , 05/04/2024, 11/04/2023 HEPATITIS C SCREENING Completed 11/04/2023 BONE DENSITY TESTING Completed 11/27/2023 HIB VACCINE Aged Out No longer eligi ble based on patient's age to complete this topic HPV VACCINE Aged Out No longer eligi ble based on patient's age to complete this topic MENINGOCOCCAL (Group B) VACCINE SHARED DECISION-MAKING Aged Out No longer eligible based on patient's age to complete this topic MENINGOCOCCAL GROUPS A/C/Y/W VACCINE Aged Out No longer eligible b ased on patient's age to complete this topic Goals Goal Patient Goal Type Associated Problems Recent Progress Patient-Stated? Author Medication Management General On track( 024 1:04 PM CDT) Patrica Camara, RN Note: Expected end date: ongoing Interventions: Take all medications as prescribed Let your doctor know right away about any changes in your medications Make sure to request a refill of your medication at least one week prior to your last dose Procedures Procedure Name Priority Date/Time Associated Diagnosis Comments FLOW CYTOMETRY BLOOD PROFILE Routine 11/02/2024 2:25 PM METAL SHAPING MACHINE OPERATOR Primary biliary cholangitis PT-INR [facility] Routine 11/02/2024 2:25 PM METAL SHAPING MACHINE OPERATOR Primary biliary cholangitis ALPHA FETOPROTEIN BLOOD TUMOR MARKER Routine 11/02/2024 2:25 PM METAL SHAPING MACHINE OPERATOR Primary biliary cholangitis COMPREHENSIVE METABOLIC PANEL Routine 11/02/2024 2:25 PM METAL SHAPING MACHINE OPERATOR Primary biliary cholangitis CBC W AUTO DIFFERENTIAL Routine 11/02/2024 2:25 PM METAL SHAPING MACHINE OPERATOR Primary biliary cholangitis GA LIVER ELASTOGRAPHY Routine 11/02/2024 1:24 PM METAL SHAPING MACHINE OPERATOR Primary biliary cholangitis DEXA BONE DENSITY AXIAL SKELETON Routine 11/27/2023 10:30 AM CDT Primary biliary cholangitis HEPATITIS C AB SCREEN RFLX NAAT QUANT STAT 11/04/2023 3:25 PM METAL SHAPING MACHINE OPERATOR Primary biliary cholangitis from Last 3 Months or Most Recently Relevant to Health Maintenance Results * FLOW CYTOMETRY BLOOD PROFILE (11/02/2024 2:25 PM METAL SHAPING MACHINE OPERATOR) Case Report Flow Cytometry Case: [id number] Authorizing Provider: Tomas Fuentes MD Collected: 11/02/2024 02:25 PM Ordering Location: [facility] - Received: 11/02/2024 02:49 PM GI Pathologist: Benjy Carr MD Specimen: Blood 11/03/2024 9:17 AM [facility] Final Diagnosis Peripheral blood, flow cytometry: - No clonal B-cell, aberrant T-cell, or a blast population detected 11/03/2024 9:17 AM [facility] at 0917 METAL SHAPING MACHINE OPERATOR Flow Cytometry Results Differential Result Comment WBC Count /uL 3,900 Total Viability % 100.0 Lymphocytes % 40 Dim CD45 Region % 2 Monocytes % 13 Granulocytes % 43 11/03/2024 9:17 AM [facility] Flow Cytometry Interpretation Viability: 100% B-cells: polytypic, kappa:lambda ratio 2.2:1 T-cells: no immunophenotypic aberrancy detected CD4:CD8 ratio 1.8:1 Blasts: not detected A peripheral blood smear prepared from the flow cytometry specimen has been reviewed for director quality systems purposes. 11/03/2024 9:17 AM [facility] Reason for test Primary biliary cholangitis (HCC) 11/03/2024 9:17 AM [facility] Client Specimen ID # [id number] 11/03/2024 9:17 AM [facility] Pathologist Location at [facility] 11/03/2024 9:17 AM [facility] Disclaimer Test performed at [facility], [address] [place], [place], [address]. *The established laboratory minimum viability is 70%. Values below the minimum may result in the failure to find an abnormal population of cells. This test was developed and its performance characteristics determined by the Flow Cytometry Laboratory. It has not been cleared by the [place] Food and Drug Administration (FDA). The FDA has determined that such clearance or approval is not necessary. This test is used for clinical purposes. It should not be regarded as investigational or for research. This laboratory is regulated under the Clinical Laboratory Improvement Amendments of 1998 (CLIA) as a qualified to perform high complexity clinical testing. 11/03/2024 9:17 AM [facility] Embedded Images 9:17 AM [facility] Number of markers 17 were performed. A-1 Flow CD10 A-2 Flow CD13 A-4 Flow CD20 A-10 Flow CD2 A-11 Flow CD3 A-12 Flow CD4 A-16 Flow CD1a A-3 Flow CD19 A-5 Flow CD33 A-6 Flow CD34 A-7 Flow CD45 A-13 Flow CD5 A-14 Flow CD7 A-15 Flow CD8 A-17 Flow CD30 A-8 [place]+CD19+ A-9 Lambda+CD19+ 11/03/2024 9:17 AM [facility] Blood BLOOD SPECIMEN / Unknown Lab Venipuncture / Unknown 11/02/2024 2:25 PM METAL SHAPING MACHINE OPERATOR 11/02/2024 2:49 PM METAL SHAPING MACHINE OPERATOR -[facility] - PATHOLOGY/CYTOLOGY ORDERAB LES Final Result Performing Organization Address City/State/[facility] Co de Phone Number [facility] [address] [phone] * (ABNORMAL) PT-INR [facility] (11/02/2024 2:25 PM METAL SHAPING MACHINE OPERATOR) PT 15.5(H) 12.1 - 14.8 Seconds 11/02/2024 3:10 PM [facility] INR 1.3 See Comment 11/02/2024 3:10 PM [facility] Comment:The suggested therap eutic range for standard coumadin (warfarin) therapy is an INR of 2.0-3.0. For high-risk patients (Mechanical Mitral Valve Prosthesis, etc.), the suggested prophylactic therapeutic range is an INR of 2.5-3.5. Blood BLOOD SPECIMEN / Unknown Lab Venipuncture / Unknown 11/02/2024 2:25 PM METAL SHAPING MACHINE OPERATOR 11/02/2024 2:47 PM METAL SHAPING MACHINE OPERATOR us Tomas Fuentes MD LAB - COAGULATION ORDERABLES Fin al Result Performing Organization Address [facility] Co de Phone Number [address] [address], [facility] [phone] * ALPHA FETOPROTEIN BLOOD TUMOR MARKER (11/02/2024 2:25 PM METAL SHAPING MACHINE OPERATOR) [facility] Alpha-Fetoprote in Tumor Marker 2.6 <=8.3 ng/mL 11/02/2024 3:32 PM [facility] Comment: AFP values will vary depending on testing procedure used. Results are not comparable across different methods. AFP values obtained by [facility] using an [employer] Alinity Immunoassay. Blood BLOOD SPECIMEN / Unknown Lab Venipuncture / Unknown 11/02/2024 2:25 PM METAL SHAPING MACHINE OPERATOR 11/02/2024 2:47 PM METAL SHAPING MACHINE OPERATOR Tomas Fuentes MD LAB - CHEMISTRY ORDERABLES Final Result Performing Organization Address [facility] de Phone Number [address] [address], [facility] [phone] * (ABNORMAL) CBC W/ DIFFERENTIAL (11/02/2024 2:25 PM METAL SHAPING MACHINE OPERATOR) [facility] WBC 3.9(L) 4.0 - 10.7 x10E9/L 11/02/2024 3:28 PM [facility] RBC Count 4.53 3.90 - 5.20 x10E12/L 11/02/2024 3:28 PM [facility] Hemoglobin 14.4 11.9 - 15.8 g/dL 11/02/2024 3:28 PM [facility] Hematocrit 40.1 34.8 - 46.1 % 11/02/2024 3:28 PM [facility] MCV 88.5 80.0 - 98.0 fL 11/02/2024 3:28 PM [facility] MCH 31.8 26.7 - 33.6 pg 11/02/2024 3:28 PM [facility] MCHC 35.9 31.7 - 36.3 g/dL 11/02/2024 3:28 PM [facility] RDW-CV 13.3 11.3 - 14.8 % 11/02/2024 3:28 PM [facility] Platelet Count 112(L) 150 - 420 x10E9/L 11/02/2024 3:28 PM [facility] MPV 11.1 7.8 - 11.4 fL 11/02/2024 3:28 PM [facility] Neutrophil % 43.3 41.0 - 74.0 % 11/02/2024 3:28 PM [facility] Lymphocyte % 44.0 17.0 - 47.0 % 11/02/2024 3:28 PM [facility] Monocyte % 8.0 3.0 - 11.0 % 11/02/2024 3:28 PM [facility] Eosinophil % 3.9 0.0 - 7.0 % 11/02/2024 3:28 PM [facility] Basophil % 0.8 0.0 - 1.6 % 11/02/2024 3:28 PM [facility] Immature Granulocytes % 0.0 0.0 - 1.0 % 11/02/2024 3:28 PM [facility] Neutrophil Absolute 1.69 1.60 - 7.50 x10E9/L 11/02/2024 3:28 PM [facility] Lymphocyte Absolute 1.71 1.00 - 4.40 x10E9/L 11/02/2024 3:28 PM [facility] Monocyte Absolute 0.31 0.15 - 1.00 x10E9/L 11/02/2024 3:28 PM [facility] Eosinophil Absolute 0.15 0.00 - 0.60 x10E9/L 11/02/2024 3:28 PM [facility] Basophil Absolute 0.03 0.00 - 0.13 x10E9/L 11/02/2024 3:28 PM [facility] Blood BLOOD SPECIMEN / Unknown Lab Venipuncture / Unknown 11/02/2024 2:25 PM METAL SHAPING MACHINE OPERATOR 11/02/2024 2:50 PM METAL SHAPING MACHINE OPERATOR Tomas Fuentes MD LAB - HEMATOLOGY ORDERABLES Mitzy randolph Result [facility] [address] [place] [address], [facility] [phone] * (ABNORMAL) COMPREHENSIVE METABOLIC PANEL (11/02/2024 2:25 PM METAL SHAPING MACHINE OPERATOR) BUN 15 7 - 26 mg/dL 11/02/2024 3:13 PM [facility] Creatinine 0.77 0.56 - 0.96 mg/dL 11/02/2024 3:13 PM [facility] Sodium 141 136 - 145 mmol/L 11/02/2024 3:13 PM [facility] Potassium 3.8 3.5 - 4.5 mmol/L 11/02/2024 3:13 PM [facility] Chloride 110(H) 98 - 107 mmol/L 11/02/2024 3:13 PM [facility] CO2 24 22 - 29 mmol/L 11/02/2024 3:13 PM [facility] Glucose 72 70 - 99 mg/dL 11/02/2024 3:13 PM [facility] Calcium 9.0 8.4 - 10.2 mg/dL 11/02/2024 3:13 PM [facility] Protein Total 6.8 6.0 - 8.3 g/dL 11/02/2024 3:13 PM [facility] Albumin 3.5 3.4 - 5.0 g/dL 11/02/2024 3:13 PM [facility] Bilirubin Total 1.3(H) 0.2 - 1.2 mg/dL 11/02/2024 3:13 PM [facility] Alkaline Phosphatase 124 40 - 150 U/L 11/02/2024 3:13 PM [facility] ALT 22 5 - 55 U/L 11/02/2024 3:13 PM [facility] AST 24 5 - 34 U/L 11/02/2024 3:13 PM [facility] Anion Gap 7 6 - 16 11/02/2024 3:13 PM [facility] BUN/Creatinine Ratio 19 7 - 23 11/02/2024 3:13 PM [facility] Osmolality Calculated 291 275 - 295 mOsm/kg 11/02/2024 3:13 PM [facility] Albumin/Globulin Ratio 1.1 1.1 - 2.3 11/02/2024 3:13 PM [facility] eGFR by CKD-EPI 86(L) >=90 mL/min/1.7 3 m2 11/02/2024 3:13 PM [facility] Blood BLOOD SPECIMEN / Unknown Lab Venipuncture / Unknown 11/02/2024 2:25 PM METAL SHAPING MACHINE OPERATOR 11/02/2024 2:47 PM METAL SHAPING MACHINE OPERATOR us Tomas Fuentes MD LAB - CHEMISTRY ORDERABLES Final Result [facility] [address] [place] [address], [facility] [phone] * PROC FIBROSCAN (11/02/2024 1:24 PM METAL SHAPING MACHINE OPERATOR) Narrative Tomas Fuentes MD - 11/02/2024 1:24 PM METAL SHAPING MACHINE OPERATOR Elaine Gerardo, RN 11/02/2024 1:25 PM Diagnosis: PBC RN verified patient NPO for prior 3 hours. Procedure explained. Date of Exam: 11/02/2024 Liver Stiffness: (LSM, kPa) median: 17.5 IQR/Median% (ideally < 30%): 15% CAP (controlled attenuation parameter): 290 Technical Difficulty: None Ordering Provider: Dr. Fuentes Phone Fax us Tomas Fuentes MD PROCEDURE/MINOR SURGICAL ORDERAB LES Edited Result - Final * BONE DENSITY AXIAL SKELETON(1OR MORE SITES)[id number] (11/27/2023 10:30 AM CDT) Anatomical Region Laterality [...] below > Dictated by Mary Melgar MD (Surg Tech) 11/27/2023 12:11 PM [employer] DO have personally reviewed and interpreted [...] below > Dictated by Mary Melgar MD (Surg Tech) 11/27/2023 12:11PM [employer] DO have personally reviewed and interpreted this examination/study. > Interpreting Provider: Enoc Saini DO on 11/27/2023 12:54 PM us Tomas Fuentes MD DEXA ORDERABLES Final Result * HEPATITIS C AB SCREEN RFLX NAAT QUANT (11/04/2023 3:25 PM METAL SHAPING MACHINE OPERATOR) Hepatitis C Antibody Non-react giancarlo Non-reac tive 11/04/2023 4:29 PM METAL SHAPING MACHINE OPERATOR [facility] Comment:Hepatitis C Antibody screen [...] Lab Venipuncture / Unknown 11/04/2023 3:25 PM METAL SHAPING MACHINE OPERATOR 11/04/2023 3:38 PM METAL SHAPING MACHINE OPERATOR us Tomas Fuentes MD LAB - CHEMISTRY ORDERABLES Final Result [facility] [address] [place] [address], [facility] [phone] from Last 3 Months or Most Recently Relevant to Health Maintenance Insurance [facility] MANAGED MEDICARE ADV Care Teams Regional Transfer Liaison Relationship Specialty Start Date End Date Ignacio Fagan DO [address] [place], [place] [id number] PCP - General Internal Medicine 05/04/24
--- OUTSIDE RECORDS SUMMARY | 2025-01-24 13:09 | XMS_ITS | Clinical Summary ---
Author Organization [facility]ngel [facility] Address [address] [place] [address] Care Team Providers Care Sat Tutor Name Role Phone Ignacio Fagan Primary Care Provider [phone] Allergies Active Allergy Reactions Criticality Noted Date [...] daily as needed for Itching. 30 Tablet 10/06/2024 Active Active Problems No known active problems Encounters Date Type Department Care Team Description 01/19/2025 External Device Data STL ABSTRACTION Provider, Abstract 01/18/2025 External Device Data STL ABSTRACTION Provider, Abstract 11/16/2024 External Device Data STL ABSTRACTION Provider, Abstract 11/09/2024 External Device Data STL ABSTRACTION Provider, Abstract 11/08/2024 External Device Data STL ABSTRACTION Provider, Abstract 11/05/2024 External Device Data STL ABSTRACTION Provider, Abstract 11/05/2024 External Device Data STL ABSTRACTION Provider, Abstract 11/02/2024 External Device Data STL ABSTRACTION Provider, Abstract 11/02/2024 External Device Data STL ABSTRACTION Provider, Abstract [...] on file Legal Sex Female 1:39 PM ASSET PROTECTION AGENT Gender Identity Not on file Sexual Orientation Not on file Last Filed Vital Signs Vital Sign Reading Time Taken Comments Blood Pressure 103/70 10/06/2024 1:06 PM ASSET PROTECTION AGENT Pulse 84 10/06/2024 1:06 PM ASSET PROTECTION AGENT Temperature 36.2 C (97.2 F) 10/06/2024 1:06 PM ASSET PROTECTION AGENT Respiratory Rate 16 10/06/2024 1:06 PM ASSET PROTECTION AGENT Oxygen Saturation 96% 10/06/2024 1:06 PM ASSET PROTECTION AGENT Inhaled Oxygen Concentration - - Weight 80.1 kg (176 lb 9.6 oz) 10/06/2024 1:06 P M ASSET PROTECTION AGENT Height 160 cm (5' 3 ) 11/09/2023 2:43 PM CDT Body Mass Index 31.28 11/09/2023 2:43 PM CDT Plan of Treatment Upcoming Encounters Date Type Department Care Team (Late st Contact Info) Description 02/03/2025 10:15 AM CDT Office Visit [facility] Oncology and Hematology - [place] [address] [facility] [address] [place] [address] Lloyd Headley MD [address] [facility] [address] [place] [address] Health Maintenance Due Date Last Done Comments Pre-Diabetes and Diabetes Screening 1959 DTAP/TDAP/TD VACCINES (1 - Tdap) 1978 PNEUMOCOCCAL VACCINE 50+ YEA RS (1 of 2 - PCV) 1978 BREAST CANCER SCREENING 1999 ZOSTER VACCINE (1 of 2) 2009 RSV VACCINE (60+ or ) (1 - Risk 60-74 years 1-dose series) 2019 INFLUENZA VACCINE (#1) 2024 Medicare Advantage ([place]) Prev entative Visit/Annual Wellness Visit 08/31/2024 OSTEOPOROSIS SCREENING 11/26/2028 11/27/2023, 2023 Insurance [facility] [id number] Care Teams Sat Tutor Relationship Specialty Start Date End Date Ignacio Fagan DO [address] [facility] [address] [place] [address] PCP - General Internal Medicine 06/23/24
--- OUTSIDE RECORDS SUMMARY | 2025-01-24 13:09 | XMS_ITS | Clinical Summary ---
Author Organization [facility] Address [address] [place] [address] Care Team Providers Care Energy Auditor Name Role Phone Alexander Salazar Primary Care [...] - Tdap) 1970 Hepatitis B Screening 1977 Pneumococcal vaccine 65+ (1 of 1 - PCV) 2009 Zoster Vaccine (1 of 2) 2009 Well Visit 65+ 2024 Influenza Vaccine (Season Ended) [address] [place] [id number] [facility] [place] [id number] [employer] HMO Care Teams Energy Auditor Relationship Specialty Start Date End Date Alexander Salazar PA [address] [facility] [address] [place] [address] PCP - General Physician Gas Systems Worker 04/25/22
[2025-01-24 13:32] LABS: Basophils Percent Auto 0.6 % (0.2-1.2); Eosinophils Absolute Auto 0.2 K/mm3 (0-0.3); Hematocrit 42.2 % (37.0-47.0); Hemoglobin 14.4 g/dL (12.0-15.0); Immature Granulocyte Absolute 0.02 K/mm3 (0.00-0.031); Immature Granulocyte Percent A 0.4 % (0-0.5); Immature Platelet Fraction Pct 4.7 % (0.9-11.2); Lymphocytes Percent Auto 33.4 % (18.3-44.2); Mean Corpuscular HGB Conc 34.1 g/dl (32-36); Mean Corpuscular Hemoglobin 31.1 pg (26-34); Mean Corpuscular Volume 91.1 fl (80-100); Mean Platelet Volume 10.6 fl (7.4-10.4); Monocytes Absolute Auto 0.4 K/mm3 (0.1-0.6); Monocytes Percent Auto 7.3 % (2.6-8.5); Neutrophils Absolute Auto 2.6 K/mm3 (1.3-6.7); Neutrophils Percent Auto 54.3 % (45.5-73.1); Platelet Count Result 131 k/mm3 (150-375); Red Blood Count 4.63 M/mm3 (4.2-5.4); Red Cell Distribution Width 13.3 % (11.5-14.5); White Blood Count 4.8 K/mm3 (4.5-10.0)
[2025-01-24 16:47] LABS: Alanine Aminotransferase 23 U/L (6-35); Albumin Level 3.8 g/dL (3.5-5.1); Alkaline Phosphatase 127 U/L (38-126); Anion Gap 6 mmol/L (4-12); Aspartate Amino Transferase 50 U/L (14-36); Bilirubin,Total 1.9 mg/dL (0.2-1.3); Blood Urea Nitrogen 19 mg/dL (7-17); Calcium 8.5 mg/dL (8.4-10.2); Carbon Dioxide 24 mmol/L (22-30); Chloride 108 mmol/L (98-107); Estimated Glomerular Filt Rate > 60; Glucose 94 mg/dL (65-110); Potassium 4.1 mmol/L (3.4-5.0); Sodium 138 mmol/L (137-145)
[2025-01-24 17:16] LABS: Carcinoembryonic Antigen 2.5 ng/mL (0.0-3.0)
== END 2025-01-24 13:04 | disposition home or self-care (01) ==
PROVIDERS: PCP Internal Medicine; Visit Provider Internal Medicine Hematology & Oncology
DX: C18.9 Malignant neoplasm of colon, unspecified (principal)
CPT/HCPCS: 36415; 80053; 82378; 85025; 85055

== ENCOUNTER 2025-03-27 09:30 | Outpatient (CLI) | payer MEDICARE, SELFPAY ==
--- OUTSIDE RECORDS SUMMARY | 2025-03-27 09:52 | XMS_ITS | Referral Summary ---
Author Organization [facility] Address [address] [place] [address] Care Team Providers Care Emergency Department Rn Name Role Phone Alexander Salazar Primary Care [...] 1:31 PM CDT Height 160 cm (5' 3) 04/25/2022 1:31 PM CDT Body Mass Index 30.11 04/25/2022 1:31 PM CDT Plan of Treatment Not on file [facility] Care Teams Emergency Department Rn Relationship Specialty Start Date End Date Alexander Salazar PA [address] [address] PCP - General Physician Motor Coach Bus Driver 04/25/22
--- OUTSIDE RECORDS SUMMARY | 2025-03-27 09:52 | XMS_ITS | Clinical Summary ---
Author Organization [facility] Melinda del rosario Taye Address [address] [place] [address] Care Team Providers Care Private Client Advisor Name Role Phone Ignacio Fagan DO Primary Care Provider [phone] Allergies Active Allergy Reactions Criticality Noted Date Comments Codeine Nausea and Vomiting Low 04/25/2022 Medications levothyroxine 50 mcg tablet 08/18/2023 Active ursodioL (BE) 500 mg tablet 09/19/2023 Activ e escitalopram oxalate (LEXAPRO) 20 mg tablet 08/18/2023 Active Active Problems No known active problems Encounters Date Type Department Care Team Description 03/15/2025 External Device Data STL ABSTRACTION Provider, Abstract 03/15/2025 External Device Data STL ABSTRACTION Provider, Abstract 02/21/2025 External Device Data STL ABSTRACTION Provider, Abstract 02/07/2025 11:00 AM CDT Office Visit [facility] Oncology and [facility] [address] [place] [address] Lloyd Headley MD Malignant neoplasm of colon, unspecified part of colon (CMS/HCC) (Primary Dx) 01/27/2025 Orders Only [facility]cology and [facility] [address] [place] [address] Lloyd Headley MD 01/19/2025 External Device Data STL ABSTRACTION Provider, [...] on file Legal Sex Female 1:39 PM TRACK LABORER Gender Identity Not on file Sexual Orientation Not on file Last Filed Vital Signs Vital Sign Reading Time Taken Comments Blood Pressure 105/69 02/07/2025 10:48 AM CDT Pulse 81 02/07/2025 10:48 AM CDT Temperature 36.8 C (98.2 F) 02/07/2025 10:48 AM CDT Respiratory Rate 15 02/07/2025 10:48 AM CDT Oxygen Saturation 96% 02/07/2025 10:48 AM CDT Inhaled Oxygen Concentration - - Weight 81.9 kg (180 lb 9.6 oz) 02/07/2025 10:48 AM CDT Height 160 cm (5' 3) 11/09/2023 2:43 PM CDT Body Mass Index 31.99 11/09/2023 2:43 PM CDT Plan of Treatment Upcoming Encounters Date Type Department Care Team (Late st Contact Info) Description 06/13/2025 11:45 AM CDT Office Visit [facility] Oncology and Hematology [facility] [address] [place] [address] [facility] [address] [place] [address] Lloyd Headley MD [address] [facility] [address] [place] [address] Health Maintenance Due Date Last Done Comments Pre-Diabetes and Diabetes Screening 1959 DTAP/TDAP/TD VACCINES (1 - Tdap) 1978 PNEUMOCOCCAL VACCINE 50+ YEA RS (1 of 2 - PCV) 1978 BREAST CANCER SCREENING 1999 ZOSTER VACCINE (1 of 2) 2009 RSV VACCINE (60+ or ) (1 - Risk 60-74 years 1-dose series) 2019 INFLUENZA VACCINE (#1) 2025 OSTEOPOROSIS SCREENING 11/26/2028 11/27/2023, 2023 Procedures Procedure Name Priority Date/Time Associated Diagnosis Comments CBC WITH DIFFERENTIAL Routine 01/24/2025 3:35 PM CDT COMPREHENSIVE METABOLIC PANEL Routine 01/24/2025 3:09 PM CDT from Last 3 Months Results * CBC WITH DIFFERENTIAL (01/24/2025 3:35 PM CDT) Blood Lloyd Headley MD HEMATOLOGY ORDERABLES Final Res ult * COMPREHENSIVE METABOLIC PANEL (01/24/2025 3:09 PM CDT) Blood Lloyd Headley MD CHEMISTRY ORDERABLES Final Resu lt from Last 3 Months Insurance [facility] [id number] [facility] Address: [place] [address] Care Teams Private Client Advisor Relationship Specialty Start Date End Date Ignacio Fagan DO [address] [facility] [address] [place] [address] PCP - General Internal Medicine 06/23/24
--- OUTSIDE RECORDS SUMMARY | 2025-03-27 09:52 | XMS_ITS | Clinical Summary ---
Author Organization [facility] Address [address] [place] [address] Care Team Providers Care Meat Cutter Name Role Phone Alexander Salazar Primary Care [...] 2009 Well Visit 65+ 2024 Influenza Vaccine (#1) 2025 [place] [id number] [facility] [place] [id number] [employer] HMO Care Teams Meat Cutter Relationship Specialty Start Date End Date Alexander Salazar PA [address] [facility] [address] [place] [address] PCP - General Physician Machine Pie Maker 04/25/22
--- OUTSIDE RECORDS SUMMARY | 2025-03-27 09:52 | XMS_ITS | Clinical Summary ---
Author Organization [facility] Address [address] [facility] [place] [address] Care Team Providers Care Plate Put In Worker Name Role Phone Ignacio Fagan DO Primary Care Provider [phone] Source Comments [facility],non-owned Affiliates and Associated Physician Practices is amultiple site organization consisting of ambulatory clinics and hospital sitesin [place], [place], [place] and [place]. This disclosure is being madepursuant to the Care Everywhere program and may not contain all information available regarding this patient. Last updated 18.[facility] Allergies Active Allergy Reactions Criticality Noted Date [...] 2 5 Active ergocalciferol (Drisdol) 1.25 MG (09273 UT) capsuleIndicatio ns:Osteoporosis with current pathological fracture, unspecified osteoporosis type, initial encounter Take 1 (one) capsule by mouth once daily for 90 days 30 capsule 2 5 Active Social History Tobacco Use Types Packs/Day Years Used Date Smoking Tobacco: Never Smokeless Tobacco: Never Tobacco Cessation:Counseling Given: Not Answered Alcohol Use Standard Drinks/Week Comments Never 0 (1 standard drink = 0.6 oz pur e alcohol) Comments Unknown Sex and Gender Information Value Date Recorded Sex Assigned at Not on file Legal Sex Female 2:37 PM VICE PRESIDENT MARKETING & DEVELOPMENT Gender Identity Not on file Sexual Orientation Not on file Last Filed Vital Signs Vital Sign Reading Time Taken Comments Blood Pressure 108/66 11/02/2024 12:36 PM VICE PRESIDENT MARKETING & DEVELOPMENT Pulse 70 11/02/2024 12:36 PM VICE PRESIDENT MARKETING & DEVELOPMENT Temperature 36.9 C (98.5 F) 11/02/2024 12:36 PM VICE PRESIDENT MARKETING & DEVELOPMENT Respiratory Rate - - Oxygen Saturation 97% 11/02/2024 12:36 PM VICE PRESIDENT MARKETING & DEVELOPMENT Inhaled Oxygen Concentration - - Weight 81.6 kg (180 lb) 11/02/2024 12:36 PM VICE PRESIDENT MARKETING & DEVELOPMENT Height 160 cm (5' 3) 11/02/2024 12:36 PM VICE PRESIDENT MARKETING & DEVELOPMENT Body Mass Index 31.89 11/02/2024 12:36 PM VICE PRESIDENT MARKETING & DEVELOPMENT Plan of Treatment Upcoming Encounters Date Type Department Care Team (Late st Contact Info) Description 05/03/2025 1:00 PM CDT Office Visit [facility] [place] [address] [facility] [place] [address] Tomas Fuentes MD [address] [place] [address] Health Maintenance Due Date Last Done Comments COLOGUARD (AGES 45-75) - COL ON CA SCREENING 1959 COLON MONITORING 1959 COLONOSCOPY - COLON CA SCREENING 1959 CT COLONOGRAPHY - COLON CA SCREENING 1959 Colorectal Cancer Screening 1959 FIT - COLON CA SCREENING 1959 FLEX SIG - COLON CA SCREENING 1959 LIPID TESTING 1959 MAMMOGRAM 1959 HIV SCREENING 1974 DTAP/TDAP/TD VACCINES (1 - Tdap) 1978 PNEUMOCOCCAL VACCINE 50+ (1 of 2 - PCV) 1978 PAP SMEAR 1980 ZOSTER VACCINE (1 of 2) 2009 HEPATITIS B VACCINE (1 of 3 - Risk 3-dose series) 2019 Respiratory Syncytial Virus (RSV) Vaccine Pt: or over 60 yrs (1 - Risk 60-74 years 1-dose series) 2019 COVID-19 VACCINE (1 - 2023-2 5 season) 2024 DEPRESSION SCREENING 08/31/2024 MEDICARE AWV CALENDAR YEAR 2024 INFLUENZA VACCINE (#1) 2025 SCREENING FOR DIABETES 11/03/2027 , 05/04/2024, [...] Associated Diagnosis Comments COMPREHENSIVE METABOLIC PANEL Routine 11/02/2024 2:25 PM [facility] Primary biliary cholangitis DEXA BONE DENSITY AXIAL SKELETON Routine 11/27/2023 10:30 AM CDT Primary biliary cholangitis HEPATITIS C AB SCREEN RFLX NAAT QUANT STAT 11/04/2023 3:25 PM VICE PRESIDENT MARKETING & DEVELOPMENT Primary biliary cholangitis from Last 3 Months or Most Recently Relevant to Health Maintenance Results * (ABNORMAL) COMPREHENSIVE METABOLIC PANEL (11/02/2024 2:25 PM [facility]) BUN 15 7 - 26 mg/dL 11/02/2024 3:13 PM [facility] Creatinine 0.77 0.56 - 0.96 mg/dL 11/02/2024 3:13 PM [facility] Sodium 141 136 - 145 mmol/L 11/02/2024 3:13 PM [facility] Potassium 3.8 3.5 - 4.5 mmol/L 11/02/2024 3:13 PM [facility] Chloride 110(H) 98 - 107 mmol/L 11/02/2024 3:13 PM [facility] CO2 24 22 - 29 mmol/L 11/02/2024 3:13 PM [facility] Glucose 72 70 - 99 mg/dL 11/02/2024 3:13 PM [facility] Calcium 9.0 8.4 - 10.2 mg/dL 11/02/2024 3:13 PM [facility] Protein Total 6.8 6.0 - 8.3 g/dL 11/02/2024 3:13 PM [facility] Albumin 3.5 3.4 - 5.0 g/dL 11/02/2024 3:13 PM [facility] Bilirubin Total 1.3(H) 0.2 - 1.2 mg/dL 11/02/2024 3:13 PM [facility] Alkaline Phosphatase 124 40 - 150 U/L 11/02/2024 3:13 PM [facility] ALT 22 5 - 55 U/L 11/02/2024 3:13 PM [facility] AST 24 5 - 34 U/L 11/02/2024 3:13 PM [facility] Anion Gap 7 6 - 16 11/02/2024 3:13 PM [facility] BUN/Creatinine Ratio 19 7 - 23 11/02/2024 3:13 PM [facility] Osmolality Calculated 291 275 - 295 mOsm/kg 11/02/2024 3:13 PM [facility] Albumin/Globulin Ratio 1.1 1.1 - 2.3 11/02/2024 3:13 PM [facility] eGFR by CKD-EPI 86(L) >=90 mL/min/1.7 3 m2 11/02/2024 3:13 PM [facility] Blood BLOOD SPECIMEN / Unknown Lab Venipuncture / Unknown 11/02/2024 2:25 PM VICE PRESIDENT MARKETING [employer] DEVELOPMENT 11/02/2024 2:47 PM [facility] LAB - CHEMISTRY ORDERABLES Final Result [facility] [address] [place] [address], [facility] [phone] * BONE DENSITY AXIAL SKELETON(1OR MORE SITES)[id number] (11/27/2023 10:30 AM CDT) Anatomical Region Laterality [...] below > Dictated by Mary Melgar MD (Staff Nurse) 11/27/2023 12:11 PM Enoc Vegas DO have [...] below > Dictated by Mary Melgar MD (Staff Nurse) 11/27/2023 12:11PM Enoc Vegas DO have personally reviewed and interpreted this examination/study. > Interpreting Provider: Enoc Saini DO on 11/27/2023 12:54 PM us Tomas Fuentes MD DEXA ORDERABLES Final Result * HEPATITIS C AB SCREEN RFLX NAAT QUANT (11/04/2023 3:25 PM VICE PRESIDENT MARKETING & DEVELOPMENT) Hepatitis C Antibody Non-react giancarlo Non-reac tive 11/04/2023 4:29 PM VICE PRESIDENT MARKETING & DEVELOPMENT [facility] Comment:Hepatitis C Antibody screen indicates no serologic evidence of past or current infection with Hepatitis C Virus. Patients with unexplained liver disease who are immunocompromised or suspected of having acute Hepatitis C infection may benefit from Nucleic Acid Test (LITO) for Hepatitis C Viral RNA to confirm Hepatitis C status. Blood BLOOD SPECIMEN / Unknown Lab Venipuncture / Unknown 11/04/2023 3:25 PM VICE PRESIDENT MARKETING & DEVELOPMENT 11/04/2023 3:38 PM VICE PRESIDENT MARKETING & DEVELOPMENT us Tomas Fuentes MD LAB - CHEMISTRY ORDERABLES Final Result [facility] [address] [place] [address], [facility] [phone] from Last 3 Months or Most Recently Relevant to Health [place] [id number] [facility] MANAGED MEDICARE ADV Care Teams Plate Put In Worker Relationship Specialty Start Date End Date Ignacio Fagan DO [address] [place], [place] [id number] PCP - General Internal Medicine 05/04/24
[2025-03-27 10:49] LABS: Thyroid Stimulating Hormone 5.060 uIU/mL (0.465-4.680)
== END 2025-03-27 09:31 | disposition home or self-care (01) ==
PROVIDERS: PCP Internal Medicine; Visit Provider Internal Medicine
DX: E03.9 Hypothyroidism, unspecified (principal)
CPT/HCPCS: 36415; 84443

== ENCOUNTER 2025-06-05 10:33 | Outpatient (CLI) | payer MEDICARE, SELFPAY ==
[2025-06-05 10:47] LABS: Hematocrit 41.7 % (37.0-47.0); Hemoglobin 14.3 g/dL (12.0-15.0); Immature Granulocyte Percent A 0.2 % (0-0.5); Immature Platelet Fraction Pct 4.7 % (0.9-11.2); Lymphocytes Absolute Auto 1.29 K/mm3 (0.9-3.2); Mean Corpuscular HGB Conc 34.3 g/dl (32-36); Mean Corpuscular Hemoglobin 31.4 pg (26-34); Mean Corpuscular Volume 91.4 fl (80-100); Nucleated Red Blood Cells Absolute Auto 0.000 K/mm3 (0.0-0.012); Nucleated Red Blood Cells Perc 0.0 % (0.0-0.2); Platelet Count Result 120 k/mm3 (150-375); Red Blood Count 4.56 M/mm3 (4.2-5.4); White Blood Count 4.3 K/mm3 (4.5-10.0)
[2025-06-05 11:27] LABS: Alanine Aminotransferase 27 U/L (6-35); Albumin Level 3.8 g/dL (3.5-5.1); Alkaline Phosphatase 120 U/L (38-126); Anion Gap 7 mmol/L (4-12); Aspartate Amino Transferase 35 U/L (14-36); Bilirubin,Total 1.9 mg/dL (0.2-1.3); Blood Urea Nitrogen 16 mg/dL (7-17); Calcium 8.7 mg/dL (8.4-10.2); Carbon Dioxide 22 mmol/L (22-30); Chloride 109 mmol/L (98-107); Estimated Glomerular Filt Rate > 60; Glucose 95 mg/dL (65-110); Potassium 4.0 mmol/L (3.4-5.0); Sodium 138 mmol/L (137-145); Total Protein 7.2 g/dL (6.3-8.2)
--- OUTSIDE RECORDS SUMMARY | 2025-06-05 11:57 | XMS_ITS | Clinical Summary ---
Author Organization [facility] Address [address] [place] [address] Care Team Providers Care Retort Forker Name Role Phone Alexander Salazar Primary Care [...] Plan of Treatment Not on file Insurance [facility] Care Teams Retort Forker Relationship Specialty Start Date End Date Alexander Salazar PA [address] [address] PCP - General Physician Cleaner Housekeeping 04/25/22
--- OUTSIDE RECORDS SUMMARY | 2025-06-05 11:57 | XMS_ITS | Clinical Summary ---
[facility] Address [address] [place] [address] Care Team Providers Care Dot Compliance Manager Name Role Phone Ignacio Fagan DO Primary Care Provider [phone] Allergies Active Allergy Reactions Criticality Noted Date Comments Codeine Nausea and Vomiting Low 04/25/2022 Medications levothyroxine 50 mcg tablet 08/18/2023 Active ursodioL (BE) 500 mg tablet 09/19/2023 Activ e escitalopram oxalate (LEXAPRO) 20 mg tablet 08/18/2023 Active Active Problems No known active problems Encounters Date Type Department Care Team Description 05/16/2025 External Device Data STL ABSTRACTION Provider, Abstract 04/04/2025 External Device Data STL ABSTRACTION Provider, Abstract [...] on file Legal Sex Female 1:39 PM FWS FACULTY ASSISTANT Gender Identity Not on file Sexual Orientation [...] Description 06/13/2025 11:45 AM CDT Office Visit [facility] Oncology and Hematology - [place] [address] [facility] [address] [place] [address] Lloyd Headley MD [address] [facility] [employer] [address] [place] [address] Health Maintenance Due Date Last Done Comments Pre-Diabetes and Diabetes Screening 1959 DTAP/TDAP/TD VACCINES (1 - Tdap) 1978 BREAST CANCER SCREENING 1999 PNEUMOCOCCAL VACCINE 50+ YEA RS (1 of 1 - PCV) 2009 ZOSTER VACCINE (1 of 2) 2009 RSV VACCINE (60+ or ) (1 - Risk 60-74 years 1-dose series) 2019 Medicare Advantage ([place]) Prev entative Visit/Annual Wellness Visit 08/31/2024 INFLUENZA VACCINE (#1) 2025 OSTEOPOROSIS SCREENING 11/26/2028 11/27/2023, 2023 Insurance [facility] [id number] Care Teams Dot Compliance Manager Relationship Specialty Start Date End Date Ignacio Fagan DO [address] [facility] [address] [place] [address] PCP - General Internal Medicine 06/23/24
--- OUTSIDE RECORDS SUMMARY | 2025-06-05 11:57 | XMS_ITS | Clinical Summary ---
Author Organization [facility] Address [address] [place] [address] Care Team Providers Care Master Technician Name Role Phone Ignacio Fagan DO Primary Care Provider [phone] Source Comments [facility],non-owned Affiliates and Associated Physician Practices is amultiple site organization consisting of ambulatory clinics and hospital sitesin [place], [place], [place] and [place]. This disclosure is being madepursuant to the Care Everywhere program and may not contain all information available regarding this patient. Last updated 18.[facility] Allergies Active Allergy Reactions Criticality Noted Date Comments Codeine Nausea and/or Vomiting Low 04/25/2022 Medications * Be aware that medications may not be up to date on this document. Alwaysverify current medications with the patient. levothyroxine (Synthroid) 50 MCG tablet Take 1 (one) tablet by mouth daily before breakfast 3 Active escitalopram (Lexapro) 20 MG tablet Take 1 (one) tablet by mouth once daily 3 Active ursodiol (Cornelius Forte) 500 MG tabletIndications :Primary biliary cholangitis (HCC) Take 1 (one) tablet by mouth 2 times daily with morning and evening meal 30 tablet 2 4 Active hydrOXYzine HCl (Atarax) 10 MG tabletIndications :Primary biliary cholangitis (HCC) Take 1 (one) tablet by mouth 3 times daily as needed for Itching 30 tablet 2 4 Active calcium carbonate (Caltrate) 600 MG tabletIndications :Osteoporosis with current pathological fracture, unspecified osteoporosis type, initial encounter Take 1 (one) tablet by mouth 2 times daily 30 tablet 2 5 Active cholestyramine (Questran) 4 g packetIndications :Itching Take 1 (one) packet by mouth once daily 60 Each 3 Active Active Problems Problem Noted Date Diagnosed Date Abnormal CT of the abdomen 05/03/2025 Abnormal laboratory test result 05/03/2025 Acute hypokalemia 05/03/2025 Anxiety and depression 05/03/2025 Cerebrovascular accident 05/03/2025 Chronic anemia 05/03/2025 Adenocarcinoma 05/03/2025 Comminuted fracture 05/03/2025 Elevated alkaline phosphatase level 05/03/2025 Elevated liver function tests 05/03/2025 Encounter for surgical after care following surgery on the digestive system 05/03/2025 Fibroids 05/03/2025 GERD (gastroesophageal reflux disease) Hepatic cirrhosis 05/03/2025 Hyperglycemia 05/03/2025 Hypothyroidism 05/03/2025 Intra-abdominal abscess 05/03/2025 Iron deficiency anemia 05/03/2025 Malignant tumor of colon 05/03/2025 Nausea 05/03/2025 Obesity (BMI 30-39.9) 05/03/2025 Pleural effusion 05/03/2025 Primary biliary cholangitis 05/03/2025 Screening for breast cancer 05/03/2025 Closed fracture of left proximal humerus 022 Resolved Problems Problem Noted Date Diagnosed Date Resolved Date Acute sinusitis 05/03/2025 05/31/2025 Acute UTI 05/03/2025 05/17/2025 Diarrhea 05/03/2025 05/31/2025 Encounters Date Type Department Care Team Description 05/08/2025 Orders Only [facility] [address] [place] [phone] Shey Neely MD Alcoholic cirrhosis, unspecified whether ascites present (HCC) 05/08/2025 Orders Only [facility] [address] [place] [phone] Shey Neely MD 05/03/2025 1:55 PM CDT - 05/03/2025 11:59 PM CDT Hospital Encounter [facility] OP [facility] [address] [place] [address] Tomas Fuentes MD Discharge Disposition: Home or Self Care 05/03/2025 1:00 PM CDT Office Visit [facility] [address] [place] [phone] Tomas Fuentes MD 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); Alcoholic cirrhosis, unspecified whether ascites present (HCC); Itching; Primary biliary cholangitis (HCC); Low platelet count; Metabolic dysfunction-associat ed steatotic liver disease (MASLD); Autoantibody titer positive; High total IgG; H/O right hemicolectomy; Pruritus 05/03/2025 Travel from Last 3 Months Social History Tobacco Use Types Packs/Day Years Used Date Smoking Tobacco: Never Smokeless Tobacco: Never Tobacco Cessation:Counseling Given: Not Answered Alcohol Use Standard Drinks/Week Comments Never 0 (1 standard drink = 0.6 oz pur e alcohol) Comments Unknown Sex and Gender Information Value Date Recorded Sex Assigned at Not on file Legal Sex Female 2:37 PM SENIOR FIELD SERVICE ENGINEER Gender Identity Not on file Sexual Orientation Not on file Last Filed Vital Signs Vital Sign Reading Time Taken Comments Blood Pressure 118/67 05/03/2025 12:49 PM CDT Pulse 65 05/03/2025 12:49 PM CDT Temperature 37.2 C (98.9 F) 05/03/2025 12:49 PM CDT Respiratory Rate - - Oxygen Saturation 97% 05/03/2025 12:49 PM CDT Inhaled Oxygen Concentration - - Weight 83 kg (183 lb) 05/03/2025 12:49 PM CDT Height 160 cm (5' 3) 05/03/2025 12:49 PM CDT Body Mass Index 32.42 05/03/2025 12:49 PM CDT Plan of Treatment Upcoming Encounters Date Type Department Care Team (Late st Contact Info) Description 11/15/2025 1:00 PM CDT Office Visit [facility] - [address] [phone] Tomas Fuentes MD [address] [place] [address] [address] [place] [address] Health Maintenance Due Date Last Done Comments COLOGUARD (AGES 45-75) - COLON CA SCREENING 1960 COLON MONITORING 1959 COLONOSCOPY [...] - Risk 60-74 years 1-dose series) 2019 DEPRESSION SCREENING 08/31/2024 MEDICARE AWV CALENDAR YEAR 2024 COVID-19 VACCINE ( season) 2025 INFLUENZA VACCINE (#1) 2025 06/07/2020 SCREENING FOR DIABETES 05/03/2028 , 11/02/2024, 05/04/2024, Additional history exists HEPATITIS C SCREENING Completed 11/04/2023 BONE DENSITY [...] A/C/Y/W VACCINE Aged Out No longer eligible based on patient's age to complete this topic Goals Goal Patient Goal Type Associated Problems Recent Progress Patient-Stated? Author Medication Management General On track( 025 12:57 PM CDT) Patrica Camara, RN Note: Expected end date: ongoing Interventions: Take all medications as prescribed Let your doctor know right away about any changes in your medications Make sure to request a refill of your medication at least one week prior to your last dose Procedures Procedure Name Priority Date/Time Associated Diagnosis Comments COMPREHENSIVE METABOLIC PANEL Routine 05/03/2025 2:06 PM CDT Alcoholic cirrhosis, unspecified whether ascites present (HCC) CBC W AUTO DIFFERENTIAL Routine 05/03/2025 2:06 PM CDT Alcoholic cirrhosis, unspecified whether ascites present (HCC) ALPHA FETOPROTEIN BLOOD TUMOR MARKER Routine 05/03/2025 2:06 PM CDT Alcoholic cirrhosis, unspecified whether ascites present (HCC) PT-INR Routine 05/03/2025 2:06 PM CDT Alcoholic cirrhosis, unspecified whether ascites present (HCC) BILIRUBIN DIRECT Routine 05/03/2025 2:06 PM CDT Comminuted fracture Anxiety and depression Acute UTI DEXA BONE DENSITY AXIAL SKELETON Routine 11/27/2023 10:30 AM CDT Primary biliary cholangitis HEPATITIS C AB SCREEN RFLX NAAT QUANT STAT 11/04/2023 3:25 PM SENIOR FIELD SERVICE ENGINEER Primary biliary cholangitis from Last 3 Months or Most Recently Relevant to Health Maintenance Results * ALPHA FETOPROTEIN BLOOD TUMOR MARKER (05/03/2025 2:06 PM CDT) Alpha-Fetoprote in Tumor Marker 2.5 <=8.3 ng/mL 05/03/2025 3:05 PM CDT [facility] Comment: AFP values will vary depending on testing procedure used. Results are not comparable across different methods. AFP values obtained by [facility] using an Godfrey Alinity Immunoassay. Blood BLOOD SPECIMEN / Unknown Lab Venipuncture / Unknown 05/03/2025 2:06 PM CDT 05/03/2025 2:16 PM CDT Tomas Fuentes MD LAB - CHEMISTRY ORDERABLES Final Result [address] [address], [facility] [phone] * (ABNORMAL) PT-INR (05/03/2025 2:06 PM CDT) Pathologist [facility] PT 15.5(H) 12.1 - 14.8 Seconds 05/03/2025 2:[address] [facility] INR 1.3 See Comment 05/03/2025 2:[address] [facility] Comment:The suggested therap eutic range for standard coumadin (warfarin) therapy is an INR of 2.0-3.0. For high-risk patients (Mechanical Mitral Valve Prosthesis, etc.), the suggested prophylactic therapeutic range is an INR of 2.5-3.5. Blood BLOOD SPECIMEN / Unknown Lab Venipuncture / Unknown 05/03/2025 2:06 PM CDT 05/03/2025 2:13 PM CDT [facility] LAB - COAGULATION ORDERABLES Fin al Result [address] [address], [facility] [phone] * (ABNORMAL) CBC W/ DIFFERENTIAL (05/03/2025 2:06 PM CDT) [facility] WBC 4.8 4.0 - 10.7 x10E9/L 05/03/2025 2:[address] [facility] RBC Count 4.53 3.90 - 5.20 x10E12/L 05/03/2025 2:[address] [facility] Hemoglobin 14.4 11.9 - 15.8 g/dL 05/03/2025 2:[address] [facility] Hematocrit 39.7 34.8 - 46.1 % 05/03/2025 2:[address] [facility] MCV 87.6 80.0 - 98.0 fL 05/03/2025 2:[address] [facility] MCH 31.8 26.7 - 33.6 pg 05/03/2025 2:[address] [facility] MCHC 36.3 31.7 - 36.3 g/dL 05/03/2025 2:30 PM [facility] RDW-CV 13.2 11.3 - 14.8 % 05/03/2025 2:30 PM [facility] Platelet Count 121(L) 150 - 420 x10E9/L 05/03/2025 2:30 PM [facility] MPV 10.7 7.8 - 11.4 fL 05/03/2025 2:30 PM [facility] Neutrophil % 53.2 41.0 - 74.0 % 05/03/2025 2:30 PM [facility] Lymphocyte % 33.2 17.0 - 47.0 % 05/03/2025 2:30 PM [facility] Monocyte % 8.4 3.0 - 11.0 % 05/03/2025 2:30 PM [facility] Eosinophil % 4.2 0.0 - 7.0 % 05/03/2025 2:30 PM [facility] Basophil % 0.6 0.0 - 1.6 % 05/03/2025 2:30 PM [facility] Immature Granulocytes % 0.4 0.0 - 1.0 % 05/03/2025 2:30 PM [facility] Neutrophil Absolute 2.53 1.60 - 7.50 x10E9/L 05/03/2025 2:30 PM [facility] Lymphocyte Absolute 1.58 1.00 - 4.40 x10E9/L 05/03/2025 2:30 PM [facility] Monocyte Absolute 0.40 0.15 - 1.00 x10E9/L 05/03/2025 2:30 PM [facility] Eosinophil Absolute 0.20 0.00 - 0.60 x10E9/L 05/03/2025 2:30 PM [facility] Basophil Absolute 0.03 0.00 - 0.13 x10E9/L 05/03/2025 2:30 PM [facility] Blood BLOOD SPECIMEN / Unknown Lab Venipuncture / Unknown 05/03/2025 2:06 PM CDT 05/03/2025 2:16 PM CDT Tomas Fuentes MD LAB - HEMATOLOGY ORDERABLES Mitzy agustín Result [facility] [address] [place] [address], [facility] [phone] * (ABNORMAL) COMPREHENSIVE METABOLIC PANEL (05/03/2025 2:06 PM CDT) BUN 13 7 - 26 mg/dL 05/03/2025 2:45 PM [facility] Creatinine 0.75 0.56 - 0.96 mg/dL 05/03/2025 2:45 PM [facility] Sodium 138 136 - 145 mmol/L 05/03/2025 2:45 PM [facility] Potassium 4.0 3.5 - 4.5 mmol/L 05/03/2025 2:45 PM [facility] Chloride 110(H) 98 - 107 mmol/L 05/03/2025 2:45 PM [facility] CO2 25 22 - 29 mmol/L 05/03/2025 2:45 PM [facility] Glucose 82 70 - 99 mg/dL 05/03/2025 2:45 PM [facility] Calcium 8.9 8.4 - 10.2 mg/dL 05/03/2025 2:45 PM [facility] Protein Total 7.1 6.0 - 8.3 g/dL 05/03/2025 2:45 PM [facility] Albumin 3.9 3.4 - 5.0 g/dL 05/03/2025 2:45 PM [facility] Bilirubin Total 1.5(H) 0.2 - 1.2 mg/dL 05/03/2025 2:45 PM [facility] Alkaline Phosphatase 130 40 - 150 U/L 05/03/2025 2:45 PM [facility] ALT 19 5 - 55 U/L 05/03/2025 2:45 PM [facility] AST 23 5 - 34 U/L 05/03/2025 2:45 PM [facility] Anion Gap 3(L) 6 - 16 05/03/2025 2:[address] [facility] BUN/Creatinine Ratio 17 7 - 23 05/03/2025 2:45 PM CDT [facility] Osmolality Calculated 285 275 - 295 mOsm/kg 05/03/2025 2:[address] [facility] Albumin/Globulin Ratio 1.2 1.1 - 2.3 05/03/2025 2:[address] [facility] eGFR by CKD-EPI 88(L) >=90 mL/min/1.7 3 m2 05/03/2025 2:45 PM CDT [facility] Comment:Estimated Glomerular Filtration Rate (eGFR) calculated using the CKD-EPI Creatinine Equation (2020), per the National Kidney Foundation and [place] [employer]ph[employer] recommendations. Blood BLOOD SPECIMEN / Unknown Lab Venipuncture / Unknown 05/03/2025 2:06 PM CDT 05/03/2025 2:18 PM CDT us Tomas Fuentes MD LAB - CHEMISTRY ORDERABLES Final Result [address] [address], [facility] [phone] * BILIRUBIN DIRECT (05/03/2025 2:06 PM CDT) Bilirubin Conjugated 0.5 0.1 - 0.5 mg/dL 05/03/2025 2:[address] [facility] Blood BLOOD SPECIMEN / Unknown Lab Venipuncture / Unknown 05/03/2025 2:06 PM CDT 05/03/2025 2:18 PM CDT us Tomas Fuentes MD LAB - CHEMISTRY ORDERABLES Final Result [address] [address], [place] [phone] * BONE DENSITY AXIAL SKELETON(1OR MORE SITES)[id number] (11/27/2023 10:30 AM CDT) Anatomical Region Laterality [...] below > Dictated by Mary Melgar MD (Crester) 11/27/2023 12:11 PM IEnoc DO have personally [...] below > Dictated by Mary Melgar MD (Crester) 11/27/2023 12:11PM IEnoc DO have personally reviewed and interpreted this examination/study. > Interpreting Provider: Enoc Saini DO on 11/27/2023 12:54 PM us Tomas Fuentes MD DEXA ORDERABLES Final Result * HEPATITIS C AB SCREEN RFLX NAAT QUANT (11/04/2023 3:25 PM SENIOR FIELD SERVICE ENGINEER) Hepatitis C Antibody Non-react giancarlo Non-reac tive 11/04/2023 4:29 PM SENIOR FIELD SERVICE ENGINEER [facility] Comment:Hepatitis C Antibody screen indicates [...] Lab Venipuncture / Unknown 11/04/2023 3:25 PM SENIOR FIELD SERVICE ENGINEER 11/04/2023 3:38 PM SENIOR FIELD SERVICE ENGINEER us Tomas Fuentes MD LAB - CHEMISTRY ORDERABLES Final Result [facility] [address] [place] [address], [place] [phone] from Last 3 Months or Most Recently Relevant to Health Maintenance Insurance [facility] MANAGED MEDICARE ADV Care Teams Master Technician Relationship Specialty Start Date End Date Ignacio Fagan DO [address] [place], [place] [id number] PCP - General Internal Medicine 05/04/24
[2025-06-05 12:03] LABS: Carcinoembryonic Antigen 4.1 ng/mL (0.0-3.0)
== END 2025-06-05 10:34 | disposition home or self-care (01) ==
LOC: ANHLAB 10:33
PROVIDERS: PCP Internal Medicine; Visit Provider Internal Medicine Hematology & Oncology
DX: C18.9 Malignant neoplasm of colon, unspecified (principal)
CPT/HCPCS: 36415; 80053; 82378; 85025; 85055

== ENCOUNTER 2025-07-14 08:23 | Outpatient (CLI) | payer MEDICARE, SELFPAY ==
--- NOTE | ~2025-07-14 | US_ITS ---
ULTRASOUND ABDOMEN LIMITED (RIGHT UPPER QUADRANT) Clinical History: Alcoholic cirrhosis Comparison: CT abdomen pelvis 05/27/2005 Technique: Right upper quadrant sonography Findings: Liver: Nodular contour. Normal size. Coarse echotexture. No intrahepatic biliary ductal dilatation. Normal hepatopedal flow main portal vein. No discrete hepatic mass identified. Common Duct: Normal caliber. 5 mm. Gallbladder: Removed. Pancreas: Mostly obscured by bowel gas. IMPRESSION: 1. Cirrhosis with diffusely heterogeneous parenchyma. No discrete hepatic mass noted. Reviewed, dictated and finalized at location [facility]. [facility]
--- OUTSIDE RECORDS SUMMARY | 2025-07-14 08:35 | XMS_ITS | Clinical Summary ---
Author Organization [facility] Address [address] [place] [address] Care Team Providers Care Building Insulation Installer Name Role Phone Alexander Salazar Primary Care [...] Plan of Treatment Not on file Insurance [facility] Care Teams Building Insulation Installer Relationship Specialty Start Date End Date Alexander Salazar PA [address] [address] PCP - General Physician Php Programmer 04/25/22
--- OUTSIDE RECORDS SUMMARY | 2025-07-14 08:35 | XMS_ITS | Clinical Summary ---
Author Organization [facility] C[employer] Address [address] [place] [address] Care Team Providers Care Design Eng Name Role Phone Ignacio Fagan DO Primary Care Provider [phone] Source Comments [facility] [employer],non-owned Affiliates and Associated Physician Practices is amultiple site organization consisting of ambulatory clinics and hospital sitesin [place], [place], [place] and [place]. This disclosure is being madepursuant to the Care Everywhere program and may not contain all information available regarding this patient. Last updated 18.[facility] [employer] Allergies Active Allergy Reactions Criticality Noted Date [...] Encounters Date Type Department Care Team Description 06/28/2025 Telephone [facility] [address] [place] [phone] Marva Guzman, RN Appointment 05/08/2025 Orders Only [facility] [address] [place] [phone] Shey Neely MD Alcoholic cirrhosis, unspecified whether ascites present (HCC) 05/08/2025 Orders Only [facility] [address] [place] [phone] Shey Neely MD 05/03/2025 1:55 PM CDT - 05/03/2025 11:59 PM CDT Hospital Encounter [facility] OP DRAW STATION [address] [place] [address] Tomas Fuentes MD Discharge Disposition: Home or Self Care 05/03/2025 1:00 PM CDT Office Visit [facility] [address] [place] [address] Tomas Fuentes MD Hepatic cirrhosis due to [...] on file Legal Sex 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 Gender Identity Not on file Sexual Orientation [...] Team (Late st Contact Info) Description 11/15/2025 1:30 PM CDT Office Visit [facility] - [address] [phone] Tomas Fuentes MD [address] [facility] [address] [place] [phone] Health Maintenance Due Date Last Done Comments [...] RFLX NAAT QUANT STAT 11/04/2023 3:25 PM SOCIAL SCIENCE INSTRUCTOR Primary biliary cholangitis from Last 3 Months or Most Recently Relevant to Health Maintenance Results * ALPHA FETOPROTEIN BLOOD TUMOR MARKER (05/03/2025 2:06 PM CDT) Alpha-Fetoprote in Tumor Marker 2.5 <=8.3 ng/mL 05/03/2025 3:05 PM CDT [facility] Comment: AFP values will vary depending on testing procedure used. Results are not comparable across different methods. AFP values obtained by [facility] using an Godfrey Alinity Immunoassay. Blood BLOOD SPECIMEN / Unknown Lab Venipuncture / Unknown 05/03/2025 2:06 PM CDT 05/03/2025 2:16 PM CDT us Tomas Fuentes MD LAB - CHEMISTRY ORDERABLES Final Result Performing Organization Address [facility]/ZIP Co de Phone Number [address] [address], [facility] [phone] * (ABNORMAL) PT-INR (05/03/2025 2:06 PM CDT) Pathologist [facility] PT 15.5(H) 12.1 - 14.8 Seconds 05/03/2025 2:43 PM CDT [facility] INR 1.3 See Comment 05/03/2025 2:43 PM CDT [facility] Comment:The suggested therap eutic range for standard coumadin (warfarin) therapy is an INR of 2.0-3.0. For high-risk patients (Mechanical Mitral Valve Prosthesis, etc.), the suggested prophylactic therapeutic range is an INR of 2.5-3.5. Blood BLOOD SPECIMEN / Unknown Lab Venipuncture / Unknown 05/03/2025 2:06 PM CDT 05/03/2025 2:13 PM CDT us Tomas Fuentes MD LAB - COAGULATION ORDERABLES Fin al Result Performing Organization Address [facility] Co de Phone Number [address] [address], [facility] [phone] * (ABNORMAL) CBC W/ DIFFERENTIAL (05/03/2025 2:06 PM CDT) WBC 4.8 4.0 - 10.7 x10E9/L 05/03/2025 2:30 PM CDT [facility] RBC Count 4.53 3.90 - 5.20 x10E12/L 05/03/2025 2:30 PM CDT [facility] Hemoglobin 14.4 11.9 - 15.8 g/dL 05/03/2025 2:30 PM CDT [facility] Hematocrit 39.7 34.8 - 46.1 % 05/03/2025 2:30 PM CDT [facility] MCV 87.6 80.0 - 98.0 fL 05/03/2025 2:30 PM [facility] MCH 31.8 26.7 - 33.6 pg 05/03/2025 2:30 PM [facility] MCHC 36.3 31.7 - 36.3 g/dL 05/03/2025 2:30 PM [facility] RDW-CV 13.2 11.3 - 14.8 % 05/03/2025 2:30 PM [facility] Platelet Count 121(L) 150 - 420 x10E9/L 05/03/2025 2:30 PM [facility] MPV 10.7 7.8 - 11.4 fL 05/03/2025 2:30 PM [facility] Neutrophil % 53.2 41.0 - 74.0 % 05/03/2025 2:30 PM [facility] Lymphocyte % 33.2 17.0 - 47.0 % 05/03/2025 2:30 PM [facility] Monocyte % 8.4 3.0 - 11.0 % 05/03/2025 2:30 PM [facility] Eosinophil % 4.2 0.0 - 7.0 % 05/03/2025 2:30 PM [facility] Basophil % 0.6 0.0 - 1.6 % 05/03/2025 2:30 PM [facility] Immature Granulocytes % 0.4 0.0 - 1.0 % 05/03/2025 2:30 PM [facility] Neutrophil Absolute 2.53 1.60 - 7.50 x10E9/L 05/03/2025 2:30 PM [facility] Lymphocyte Absolute 1.58 1.00 - 4.40 x10E9/L 05/03/2025 2:30 PM [facility] Monocyte Absolute 0.40 0.15 - 1.00 x10E9/L 05/03/2025 2:30 PM [facility] Eosinophil Absolute 0.20 0.00 - 0.60 x10E9/L 05/03/2025 2:30 PM [facility] Basophil Absolute 0.03 0.00 - 0.13 x10E9/L 05/03/2025 2:30 PM [facility] Blood BLOOD SPECIMEN / Unknown Lab Venipuncture / Unknown 05/03/2025 2:06 PM CDT 05/03/2025 2:16 PM CDT Tomas Fuentes MD LAB - HEMATOLOGY ORDERABLES Mitzy l Result [facility] [address] [place] [phone], [facility] [phone] * (ABNORMAL) COMPREHENSIVE METABOLIC PANEL (05/03/2025 2:06 PM CDT) BUN 13 7 - 26 mg/dL 05/03/2025 2:45 PM [facility] Creatinine 0.75 0.56 - 0.96 mg/dL 05/03/2025 2:45 PM [facility] Sodium 138 136 - 145 mmol/L 05/03/2025 2:45 PM [facility] Potassium 4.0 3.5 - 4.5 mmol/L 05/03/2025 2:45 PM [facility] Chloride 110(H) 98 - 107 mmol/L 05/03/2025 2:45 PM [facility] CO2 25 22 - 29 mmol/L 05/03/2025 2:45 PM [facility] Glucose 82 70 - 99 mg/dL 05/03/2025 2:45 PM [facility] Calcium 8.9 8.4 - 10.2 mg/dL 05/03/2025 2:45 PM [facility] Protein Total 7.1 6.0 - 8.3 g/dL 05/03/2025 2:45 PM [facility] Albumin 3.9 3.4 - 5.0 g/dL 05/03/2025 2:45 PM [facility] Bilirubin Total 1.5(H) 0.2 - 1.2 mg/dL 05/03/2025 2:45 PM [facility] Alkaline Phosphatase 130 40 - 150 U/L 05/03/2025 2:45 PM [facility] ALT 19 5 - 55 U/L 05/03/2025 2:45 PM CDT [facility] AST 23 5 - 34 U/L 05/03/2025 2:45 PM [facility] Anion Gap 3(L) 6 - 16 05/03/2025 2:45 PM [facility] BUN/Creatinine Ratio 17 7 - 23 05/03/2025 2:45 PM [facility] Osmolality Calculated 285 275 - 295 mOsm/kg 05/03/2025 2:45 PM [facility] Albumin/Globulin Ratio 1.2 1.1 - 2.3 05/03/2025 2:45 PM [facility] eGFR by CKD-EPI 88(L) >=90 mL/min/1.7 3 m2 05/03/2025 2:45 PM [facility] Comment:Estimated Glomerular Filtration Rate (eGFR) calculated using the CKD-EPI Creatinine Equation (2020), per the National Kidney Foundation and [place] Society of Nephrology recommendations. Blood BLOOD SPECIMEN / Unknown Lab Venipuncture / Unknown 05/03/2025 2:06 PM CDT 05/03/2025 2:18 PM CDT us Tomas Fuentes MD LAB - CHEMISTRY ORDERABLES Final Result [address] [address], [facility] [phone] * BILIRUBIN DIRECT (05/03/2025 2:06 PM CDT) Bilirubin Conjugated 0.5 0.1 - 0.5 mg/dL 05/03/2025 2:45 PM CDT [facility] Blood BLOOD SPECIMEN / Unknown Lab Venipuncture / Unknown 05/03/2025 2:06 PM CDT 05/03/2025 2:18 PM CDT us Tomas Fuentes MD LAB - CHEMISTRY ORDERABLES Final Result [address] [address], [place] [phone] * BONE DENSITY AXIAL SKELETON(1OR MORE SITES)[id number] (11/27/2023 10:30 AM CDT) Anatomical Region Laterality [...] below > Dictated by Mary Melgar MD (Information Technology Architect) 11/27/2023 12:11 PM [employer] DO have personally [...] -2.5 and below > Dictated by Mary Meglar MD (Information Technology Architect) 11/27/2023 12:11PM [employer] DO have personally reviewed and interpreted this examination/study. > Interpreting Provider: Enoc Saini DO on 11/27/2023 12:54 PM us Tomas Fuentes MD DEXA ORDERABLES Final Result * HEPATITIS C AB SCREEN RFLX NAAT QUANT (11/04/2023 3:25 PM SOCIAL SCIENCE INSTRUCTOR) Hepatitis C Antibody Non-react giancarlo Non-reac tive 11/04/2023 4:29 PM SOCIAL SCIENCE INSTRUCTOR [facility] Comment:Hepatitis C Antibody screen indicates [...] Lab Venipuncture / Unknown 11/04/2023 3:25 PM SOCIAL SCIENCE INSTRUCTOR 11/04/2023 3:38 PM SOCIAL SCIENCE INSTRUCTOR us Tomas Fuentes MD LAB - CHEMISTRY ORDERABLES Final Result [facility] [address] [place] [address], [facility] [phone] from Last 3 Months or Most Recently Relevant to Health Maintenance Insurance [facility] MANAGED MEDICARE ADV Care Teams Design Eng Relationship Specialty Start Date End Date Ignacio Fagan DO [address] [place] [address] PCP - General Internal Medicine 05/04/24
--- OUTSIDE RECORDS SUMMARY | 2025-07-14 08:35 | XMS_ITS | Clinical Summary ---
Author Organization [facility] Melinda Buchanan Address [address] [facility] [place] [address] Care Team Providers Care Noteman Name Role Phone Ignacio Fagan Iza [employer] Primary Care Provider [phone] Allergies Active Allergy Reactions Criticality Noted Date Comments Codeine Nausea and Vomiting Low 04/25/2022 Medications levothyroxine 50 mcg tablet 08/18/2023 Active ursodioL (BE) 500 mg tablet 09/19/2023 Activ e escitalopram oxalate (LEXAPRO) 20 mg tablet 08/18/2023 Active Active Problems No known active problems Encounters Date Type Department Care Team Description 06/21/2025 External Device Data ST[facility] ABSTRACTION Provider, Abstract 06/20/2025 External Device Data [facility] ABSTRACTION Provider, Abstract 06/13/2025 11:45 AM CDT Office Visit [facility] Oncology and Hematology - [place] [address] 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 Gender Identity Not on file Sexual Orientation Not on file Last Filed Vital Signs Vital Sign Reading Time Taken Comments Blood Pressure 112/74 06/13/2025 11:32 AM CDT Pulse 84 06/13/2025 11:32 AM CDT Temperature 36.7 C (98.1 F) 06/13/2025 11:32 AM CDT Respiratory Rate 15 06/13/2025 11:32 AM CDT Oxygen Saturation 95% 06/13/2025 11:32 AM CDT Inhaled Oxygen Concentration - - Weight 82.6 kg (182 lb) 06/13/2025 11:32 AM CDT Height 160 cm (5' 3) 11/09/2023 2:43 PM CDT Body Mass Index 32.24 11/09/2023 2:43 PM CDT Plan of Treatment Upcoming Encounters Date Type Department Care Team (Late st Contact Info) Description 10/19/2025 11:30 AM HOSPITAL SUPERVISOR Office Visit [facility] Oncology and Hematology - [place] [address] [facility] [address] [place] [address] Lloyd Headley MD [address] [facility] [address] [place] [address] Health Maintenance Due Date Last Done Comments Pre-Diabetes and Diabetes Screening 1959 DTAP/TDAP/TD VACCINES (1 - Tdap) 1978 PNEUMOCOCCAL VACCINE 50+ YEA RS (1 of 2 - PCV) 1978 BREAST CANCER SCREENING 1999 RSV VACCINE (60+ or ) (1 - Risk 50-74 years 1-dose series) 2009 ZOSTER VACCINE (1 of 2) 2009 INFLUENZA VACCINE (#1) 2025 OSTEOPOROSIS SCREENING 11/26/2028 11/27/2023, 2023 Insurance [facility] [id number] Care Teams Noteman Relationship Specialty Start Date End Date Ignacio Fagan DO [address] [facility] [address] [place] [phone] PCP - General Internal Medicine 06/23/24
== END 2025-07-14 08:24 | disposition home or self-care (01) ==
PROVIDERS: PCP Internal Medicine
DX: K70.30 Alcoholic cirrhosis of liver without ascites (principal)
CPT/HCPCS: 76705